=== PATIENT | female | born 1965 | race Caucasian/White ===

== ENCOUNTER → 2019-11-23 12:55 | Outpatient (CLI) | payer OTHER, SELFPAY ==
--- NOTE | ~2019-11-23 | DEXA_ITS ---
Bone Density Report Name: Cristino Menon Age: 54 Sex: Female Ethnicity: White Date of : 1965 Indication: postmenopausal; screening for osteoporosis; height loss; Referring Provider: ALEXANDR CHAPPELL Study: Bone densitometry was performed. Exam Date: November 23, 2019 Accession number: [id number] Bone Density: Region BMD T-score Z-score Classification AP Spine (L1, L2) 1.063 0.8 1.7 Normal Femoral Neck (Left) 0.824 -0.2 0.8 Normal Total Hip (Left) 0.970 0.2 0.9 Normal Femoral Neck (Right) 0.893 0.4 1.4 Normal Total Hip (Right) 1.019 0.6 1.3 Normal Total Hip Mean 0.995 0.4 1.1 Normal World Health Organization criteria for BMD impression classify patients as: Normal (T-score at or above -1.0), Osteopenia (T-score between -1.0 and -2.5), or Osteoporosis (T-score at or below -2.5). 10-year Fracture Risk: FRAX not reported because: All T-scores for Spine Total, Hip Total, Femoral Neck at or above -1.0 Clinical Information Provided by Patient: Patient maximum height was 68 Menopause Age: 51 Drinks caffeinated beverages Onset of menses at age 16 Number of children 2 Impression: The patient has normal bone mass. Discussion: BONE DENSITY IS ABOVE THE MINIMUM DESIRABLE LEVEL AT ALL SKELETAL SITES TESTED. This patient?s bone mineral density is above the minimum desirable level (T-score -1.0 or better) at all sites measured. The patient should follow a healthful lifestyle (good nutrition with adequate calcium and vitamin D, and appropriate weight-bearing exercise). Follow-Up: Consider repeating this study in 5 years or sooner if there is some new clinical indication. Reported by: CAIO on 11/23/2019 1:53:00 PM. Reviewed, dictated and finalized at location AGabriela EDMOND
--- NOTE | ~2019-11-23 | MM_ITS ---
EXAMINATION: MM screening nat[place] BI w allie HISTORY: Screening mammogram TECHNIQUE: Craniocaudal and mediolateral oblique 3-D tomosynthesis images were obtained and synthetic 2-D images were generated. CAD analysis was submitted and interpreted. COMPARISON: 08/29/2012, 07/23/2010 bilateral digital screening mammogram examinations BREAST PARENCHYMAL COMPOSITION: The breasts are heterogeneously dense, which may obscure small masses . FINDINGS: . Stable mild asymmetry. There is no evidence of suspicious mass, calcification, or archite ctural distortion to suggest malignancy in either breast. There has been no suspicious interval velazquez e. IMPRESSION: 1. No mammographic evidence of malignancy. 2. Recommend routine screening mammography in one year. BI-RADS Category 2: Benign finding(s). Reviewed, dictated and finalized at location A.
== END ==
PROVIDERS: PCP Internal Medicine; Visit Provider Obstetrics & Gynecology
DX: Z12.31 Encounter for screening mammogram for malignant neoplasm of breast (principal); Z78.0 Asymptomatic menopausal state
CPT/HCPCS: 77063; 77067; 77080

== ENCOUNTER 2020-04-24 13:48 | Outpatient (CLI) | payer OTHER, SELFPAY ==
--- NOTE | ~2020-04-24 | US_ITS ---
EXAMINATION: US right upper quadrant DATE: 04/24/2020 14:16 INDICATION: Right upper quadrant pain, nausea and vomiting, cholecystectomy TECHNIQUE: Multiple grayscale and Doppler ultrasound images of the abdomen were obtained. COMPARISON: 11/22/2018 FINDINGS: Bowel gas obscures visualization of the pancreas. The visualized portions of the pancreas a re unremarkable. There is mild chronic enlargement of the pancreatic duct. The liver is normal with n ormal echogenicity and echotexture. No surface nodularity. Normal hepatopetal flow in the main portal vein. The gallbladder is surgically absent. The normal common bile duct measures 4 mm. There was no sonographic Collier sign. IMPRESSION: 1. Unremarkable postcholecystectomy ultrasound. Reviewed, dictated and finalized at location B.
[2020-04-24 13:59] LABS: Appearance Urine Clear (Clear); Basophils Absolute Auto 0.05 K/mm3 (0.00-0.10); Basophils Percent Auto 0.6 % (0.0-1.0); Bilirubin Urine Negative (Negative); Color Urine Yellow (Yellow); Eosinophils Absolute Auto 0.12 K/mm3 (0.02-0.50); Eosinophils Percent Auto 1.4 % (1.0-6.0); Glucose Urine UA Negative (Negative); Hematocrit 42.6 % (35.0-49.0); Hemoglobin 14.6 g/dL (12.0-15.0); Immature Granulocyte Absolute 0.02 K/mm3 (0.00-0.00); Immature Granulocyte Percent A 0.2 % (0.0-0.0); Ketones Urine Trace (Negative); Leukocyte Esterase Ur 1+ (Negative); Lymphocytes Percent Auto 43.1 % (18.0-42.0); Mean Corpuscular HGB Conc 34.3 g/dL (32.0-36.0); Mean Corpuscular Hemoglobin 31.2 pg (27.0-31.0); Mean Platelet Volume 9.5 fl (9.2-11.8); Monocytes Absolute Auto 0.64 K/mm3 (0.10-0.90); Monocytes Percent Auto 7.7 % (2.0-11.0); Neutrophils Absolute Auto 3.9 K/mm3 (1.7-7.2); Nitrate Urine Positive (Negative); Platelet Count Result 317 K/mm3 (150-420); Protein Urine Negative (Negative); Red Blood Count 4.68 M/mm3 (4.20-5.40); Red Cell Distribution Width 11.9 % (11.6-14.4); Specific Grav Ur 1.015 (1.010-1.020); White Blood Count 8.4 K/mm3 (4.8-10.8); pH Urine 7.5 (5.0-8.0)
[2020-04-24 14:07] LABS: Add Urine Microscopic? YES; Bacteria Urine 3+ /hpf; Blood Urine Trace-Intact (Negative); RBC Urine 0-2 /hpf (0-2); Squamous Epithelial Cell Urine Rare /hpf (Few)
[2020-04-24 14:16] LABS: Alanine Aminotransferase 20 U/L (14-59); Alkaline Phosphatase 62 U/L (46-116); Amylase 57 U/L (25-115); Anion Gap 5 mmol/L (8-16); Aspartate Amino Transferase 15 U/L (15-37); Bilirubin,Total 0.3 mg/dL (0.00-1.00); Blood Urea Nitrogen 10 mg/dL (7-18); Calcium 9.1 mg/dL (8.5-10.1); Carbon Dioxide 29 mmol/L (21-32); Chloride 105 mmol/L (98-108); Estimated Glomerular Filt Rate > 60; Glucose 94 mg/dL (70-99); Lipase 156 U/L (73-393); Osmolality Calculated 287 mOsm/kg (285-295); Sodium 139 mmol/L (136-145); Total Protein 7.4 g/dL (6.4-8.2)
== END 2020-04-24 13:49 | disposition home or self-care (01) ==
LOC: CHSLAB 13:49
PROVIDERS: PCP Internal Medicine; Visit Provider Internal Medicine
DX: R11.2 Nausea with vomiting, unspecified (principal); R10.11 Right upper quadrant pain; N39.0 Urinary tract infection, site not specified
CPT/HCPCS: 36415; 76705; 80053; 81001; 82150; 83690; 85025; 87077; 87086; 87088; 87186

== ENCOUNTER 2020-05-06 06:50 | Outpatient (CLI) | payer OTHER, SELFPAY ==
[2020-05-06 07:43] LABS: Add Urine Microscopic? YES; Appearance Urine Clear (Clear); Bilirubin Urine Negative (Negative); Blood Urine 1+ (Negative); Color Urine Straw (Yellow); Glucose Urine UA Negative (Negative); Ketones Urine Negative (Negative); Leukocyte Esterase Ur Negative LEU/UL (NEGATIVE); Mucus Urine Rare /lpf; Nitrate Urine Negative (Negative); Protein Urine Negative (Negative); RBC Urine 0-2 /hpf (0-2); Specific Grav Ur 1.011 (1.001-1.035); Squamous Epithelial Cell Urine Few /hpf (Few); Urobilinogen Urine Negative mg/dL (<2.0); WBC Urine 0-3 /hpf (0-3)
== END 2020-05-06 06:51 | disposition home or self-care (01) ==
PROVIDERS: PCP Internal Medicine; Visit Provider Internal Medicine
DX: N39.0 Urinary tract infection, site not specified (principal)
CPT/HCPCS: 81001; 87077; 87086; 87088; 87186

== ENCOUNTER 2020-05-17 06:53 | Outpatient (CLI) | payer OTHER, SELFPAY ==
[2020-05-17 08:14] LABS: Add Urine Microscopic? NO; Appearance Urine Clear (Clear); Bilirubin Urine Negative (Negative); Blood Urine Negative (Negative); Color Urine Straw (Yellow); Glucose Urine UA Negative (Negative); Ketones Urine Negative (Negative); Leukocyte Esterase Ur Negative LEU/UL (Negative); Nitrate Urine Negative (Negative); Protein Urine Negative (Negative); Specific Grav Ur 1.006 (1.001-1.035); Urobilinogen Urine Negative mg/dL (<2.0)
== END 2020-05-17 06:54 | disposition home or self-care (01) ==
PROVIDERS: PCP Internal Medicine; Visit Provider Internal Medicine
DX: N39.0 Urinary tract infection, site not specified (principal)
CPT/HCPCS: 81003

== ENCOUNTER 2020-11-06 07:06 | Outpatient (CLI) | payer OTHER, SELFPAY ==
[2020-11-06 07:38] LABS: Hematocrit 43.6 % (37.0-47.0); Hemoglobin 14.8 g/dL (12.0-15.0); Mean Corpuscular HGB Conc 33.9 g/dl (32-36); Mean Corpuscular Volume 88.4 fl (80-100); Mean Platelet Volume 9.6 fl (7.4-10.4); Platelet Count Result 311 k/mm3 (150-375); Red Blood Count 4.93 M/mm3 (4.2-5.4); Red Cell Distribution Width 12.5 % (11.5-14.5); White Blood Count 6.7 K/mm3 (4.5-10.0)
[2020-11-06 07:47] LABS: Hemoglobin A1C 5.2 % (<5.7)
[2020-11-06 07:51] LABS: Alanine Aminotransferase 19 U/L (4-35); Albumin Level 4.1 g/dL (3.5-5.1); Alkaline Phosphatase 62 U/L (38-126); Anion Gap 7 mmol/L (8-16); Aspartate Amino Transferase 27 U/L (14-36); Bilirubin,Total 0.5 mg/dL (0.2-1.3); Blood Urea Nitrogen 9 mg/dL (7-17); Calcium 9.2 mg/dL (8.4-10.2); Carbon Dioxide 29 mmol/L (22-30); Chloride 106 mmol/L (98-107); Cholesterol 202 mg/dL (0-200); Estimated Glomerular Filt Rate > 60; Glucose 98 mg/dL (65-105); HDL Direct 54 mg/dL; Potassium 4.2 mmol/L (3.4-5.0); Sodium 142 mmol/L (137-145); Triglycerides 77 mg/dL (<150)
[2020-11-06 08:02] LABS: LDL Cholesterol Direct 117 mg/dL
[2020-11-06 08:38] LABS: Free T4 Free Thyroxine 1.04 ng/mL (0.78-2.19); Vitamin D 25 Hydroxy 35.8 ng/mL
[2020-11-06 08:43] LABS: Vitamin B12 > 1000.0 pg/mL (239-931)
== END 2020-11-06 07:07 | disposition home or self-care (01) ==
PROVIDERS: PCP Internal Medicine; Visit Provider Nurse Practitioner
DX: Z00.00 Encounter for general adult medical examination without abnormal findings (principal)
CPT/HCPCS: 36415; 80053; 80061; 82306; 82607; 83036; 84439; 84443; 85027

== ENCOUNTER → 2020-12-23 17:21 | Outpatient (CLI) | payer OTHER, SELFPAY ==
--- NOTE | ~2020-12-23 | MM_ITS ---
EXAMINATION: MM screening nat[place] BI w allie HISTORY: Screening mammogram, family history of breast cancer in her mother. TECHNIQUE: Craniocaudal and mediolateral oblique 3-D tomosynthesis images were obtained and synthetic 2-D images were generated. CAD analysis was submitted and interpreted. COMPARISON: 11/23/2019, 08/29/2012, 07/23/2010 BREAST PARENCHYMAL COMPOSITION: The breasts are heterogeneously dense, which may obscure small masses . FINDINGS: There is no evidence of suspicious mass, calcification, or architectural distortion to sugg est malignancy in either breast. There has been no suspicious interval change. IMPRESSION: 1. No mammographic evidence of malignancy. 2. Recommend routine screening mammography in one year. BI-RADS Category 1: Negative Reviewed, dictated and finalized at location A.
== END ==
PROVIDERS: PCP Internal Medicine; Visit Provider Nurse Practitioner
DX: Z12.31 Encounter for screening mammogram for malignant neoplasm of breast (principal)
CPT/HCPCS: 77063; 77067

== ENCOUNTER 2021-01-20 11:11 | Outpatient (CLI) | payer OTHER, SELFPAY ==
--- NOTE | ~2021-01-20 | XR_ITS ---
EXAMINATION: XR ankle LT min 3V, XR foot LT min 3V EXAM DATE: 01/20/2021 11:50 INDICATION: Initial encounter following injury, with pain of the left foot, ankle. TECHNIQUE: Left foot dorsoplantar, lateral and oblique projections obtained and reviewed. Left ankle frontal, lateral and oblique projections obtained and reviewed. There is no prior study for compari son. FINDINGS: Left metatarsal bones unremarkable. The left ankle mortise appears intact. Congenitally long fibula, large lateral malleolus. 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 Bunion and mild hallux valgus. There are no acute fractures or dislocations identified. There is no subcutaneous ga s. The soft tissue is unremarkable. There are no radiopaque foreign bodies. IMPRESSION: 1. Left foot, ankle exam without acute osseous findings. Reviewed, dictated and finalized at location A. IMPRESSION: 1. Left foot, ankle exam without acute osseous findings.
== END 2021-01-20 11:12 | disposition home or self-care (01) ==
LOC: CHSLAB 11:13
PROVIDERS: PCP Internal Medicine; Visit Provider Internal Medicine
DX: S99.912A Unspecified injury of left ankle, initial encounter (principal)
CPT/HCPCS: 73610; 73630

== ENCOUNTER 2021-02-03 06:58 | Outpatient (CLI) | payer OTHER, SELFPAY ==
--- NOTE | ~2021-02-03 | XR_ITS ---
EXAMINATION: XR ankle LT min 3V DATE: 02/03/2021 07:17 INDICATION: Left ankle pain TECHNIQUE: Anteroposterior, lateral, mortise, and additional oblique view of the ankle were obtained. COMPARISON: 01/20/2021 FINDINGS: Ankle soft tissue swelling has resolved. There is no fracture, dislocation, or subluxation. The joint spaces are normal. There is a tiny plantar calcaneal enthesophyte. IMPRESSION: 1. No acute osseous abnormality. Reviewed, dictated and finalized at location A.
== END 2021-02-03 06:59 | disposition home or self-care (01) ==
LOC: ANHIMG 07:03
PROVIDERS: PCP Internal Medicine; Visit Provider Internal Medicine
DX: S99.911A Unspecified injury of right ankle, initial encounter (principal)
CPT/HCPCS: 73610

== ENCOUNTER 2021-08-11 09:53 | Outpatient (CLI) | payer OTHER, SELFPAY ==
[2021-08-11 11:39] LABS: SARS-CoV-2 RNA PCR Negative (Negative)
== END 2021-08-11 09:54 | disposition home or self-care (01) ==
LOC: CHSLAB 09:55
PROVIDERS: PCP Internal Medicine; Visit Provider Internal Medicine
DX: Z20.822 Contact with and (suspected) exposure to COVID-19 (principal)
CPT/HCPCS: C9803; U0003; U0005

== ENCOUNTER 2021-11-06 06:55 | Outpatient (CLI) | payer OTHER, SELFPAY ==
[2021-11-06 07:53] LABS: Hematocrit 41.1 % (37.0-47.0); Mean Corpuscular HGB Conc 34.1 g/dl (32-36); Mean Corpuscular Hemoglobin 30.5 pg (26-34); Mean Corpuscular Volume 89.5 fl (80-100); Mean Platelet Volume 9.7 fl (7.4-10.4); Platelet Count Result 272 k/mm3 (150-375); Red Blood Count 4.59 M/mm3 (4.2-5.4); Red Cell Distribution Width 12.1 % (11.5-14.5); White Blood Count 6.6 K/mm3 (4.5-10.0)
[2021-11-06 08:03] LABS: Hemoglobin A1C 5.4 % (<5.7)
[2021-11-06 08:08] LABS: Alanine Aminotransferase 16 U/L (4-35); Albumin Level 4.1 g/dL (3.5-5.1); Alkaline Phosphatase 50 U/L (38-126); Anion Gap 5 mmol/L (8-16); Aspartate Amino Transferase 24 U/L (14-36); Bilirubin,Total 0.5 mg/dL (0.2-1.3); Blood Urea Nitrogen 10 mg/dL (7-17); Carbon Dioxide 28 mmol/L (22-30); Chloride 107 mmol/L (98-107); Cholesterol 189 mg/dL (0-200); Estimated Glomerular Filt Rate > 60; Glucose 100 mg/dL (65-110); HDL Direct 51 mg/dL; Potassium 4.1 mmol/L (3.4-5.0); Sodium 140 mmol/L (137-145); Triglycerides 75 mg/dL (<150)
[2021-11-06 08:19] LABS: LDL Cholesterol Direct 107 mg/dL
[2021-11-06 08:35] LABS: Free T4 Free Thyroxine 1.07 ng/mL (0.78-2.19); Vitamin D 25 Hydroxy 37.2 ng/mL
[2021-11-06 08:58] LABS: Vitamin B12 > 1000.0 pg/mL (239-931)
== END 2021-11-06 06:56 | disposition home or self-care (01) ==
LOC: ANHLAB 06:59
PROVIDERS: PCP Internal Medicine; Visit Provider Nurse Practitioner
DX: Z01.419 Encounter for gynecological examination (general) (routine) without abnormal findings (principal); E55.9 Vitamin D deficiency, unspecified
CPT/HCPCS: 36415; 80053; 80061; 82306; 82607; 83036; 84439; 84443; 85027

== ENCOUNTER → 2022-01-13 15:08 | Outpatient (CLI) | payer OTHER, SELFPAY ==
--- NOTE | ~2022-01-13 | MM_ITS ---
EXAMINATION: MM screening nat[place] BI w allie HISTORY: Screening mammogram TECHNIQUE: Craniocaudal and mediolateral oblique 3-D tomosynthesis images were obtained and synthetic 2-D images were generated. CAD analysis was submitted and interpreted. COMPARISON: 12/23/2020, 12/03/2019, 08/29/2012 bilateral screening mammogram examinations BREAST PARENCHYMAL COMPOSITION: There are scattered areas of fibroglandular density. FINDINGS: There is no evidence of suspicious mass, calcification, or architectural distortion to sugg est malignancy in either breast. There has been no suspicious interval change. IMPRESSION: 1. No mammographic evidence of malignancy. 2. Recommend routine screening mammography in one year. BI-RADS Category 1: Negative Reviewed, dictated and finalized at location A.
== END ==
PROVIDERS: PCP Internal Medicine; Visit Provider Nurse Practitioner
DX: Z12.31 Encounter for screening mammogram for malignant neoplasm of breast (principal)
CPT/HCPCS: 77063; 77067

== ENCOUNTER 2022-01-15 07:13 | Outpatient (CLI) | payer OTHER, SELFPAY ==
[2022-01-15 09:49] LABS: Vitamin B12 > 1000.0 pg/mL (239-931)
== END 2022-01-15 07:14 | disposition home or self-care (01) ==
LOC: ANHLAB 07:14
PROVIDERS: PCP Internal Medicine; Visit Provider Obstetrics & Gynecology Gynecology
DX: E53.8 Deficiency of other specified B group vitamins (principal)
CPT/HCPCS: 36415; 82607

== ENCOUNTER 2022-01-27 00:05 | Day surgery (SDC) | payer OTHER, SELFPAY ==
[2022-01-20 09:56] VITALS: BMI 26.3
--- NOTE | 2022-01-27 07:54 | P.PNAN_ITS ---
Anes - Initial Pre Proc Eval Procedure: Operation Date: 01/27/22 13:30 Proposed Procedures p Esophagogastroduodenoscopy - Giovanni Santos MD Date/Time: 01/27/22 07:54 Surgeon: Giovanni Santos MD Pre Op Diagnosis: GERD, chest pain Patient Data Age: 56 Gender: F Height: 1.7 m Weight: 76.3 kg Allergies Allergy/AdvReac Type Severity Reaction Status Date / Time No Known Allergies Allergy Verified 01/27/22 12:08 Home Medications Medication Instructions Recorded Confirmed Type aspirin 81 mg tablet,delayed 81 mg PO DAILY 01/13/22 01/20/22 History release (Adult Aspirin Regimen) cholecalciferol (vitamin D3) 25 25 mcg PO DAILY 01/13/22 01/20/22 History mcg (1,000 unit) capsule lansoprazole 30 mg capsule,delayed 30 mg PO DAILY #30 caps 01/13/22 01/20/22 Rx release (Prevacid) Patient hx anesthesia problems: none Family hx anesthesia problems: none Results Review: All pre-operative results and documents have been reviewed as part of the pre- operative evaluation. [facility] Past Medical History Medical History (Updated 01/27/22 @ 07:54 by Doug Aquino DO) GERD (gastroesophageal reflux disease) Surgical History Surgical History (Updated 01/27/22 @ 07:54 by Doug Aquino DO) History of spinal fusion History of tubal ligation Social History Social History Smoking status: Never smoker Alcohol intake: current Alcohol use details: socially Substance use: never Substance use type: does not use Living arrangements: with family Gender identity (if verbalized by the patient): Female Spiritual care concerns: No Anes - Eval Final PreProcedure Day of Procedure 01/27/22 07:54 Patient weight: overweight Heart: regular rate and rhythm Lungs: clear to auscultation Airway: Mallampati scale class II Neurological: alert and oriented Last oral intake: >/= 8 hours ASA classification: II Emergent: no Anesthetic plan: proceed Anesthesia type and monitoring: general GIVS and standard monitoring Results Review: All pre-operative results and documents have been reviewed as part of the pre- operative evaluation. Informed Consent: The patient's anesthetic plan and its attendant risks and benefits were discussed with the patient/family/POA. Questions were solicited and answers provided to the satisfaction of the patient/family/POA.
[2022-01-27 12:08] VITALS: BP 118/68; PULSE 60; TEMP 36.2; O2SAT 99
[2022-01-27] MEDS: LACTATED RINGERS 1,000 ML 150 ML IV CONT (12:11)
--- NOTE | 2022-01-27 12:33 | WPDHPUPDATE1 ---
History and Physical Update Update Date/Time: 01/27/22 12:33 History and Physical has been reviewed, including an updated exam of the patient. There are NO changes in the patient's condition. Risks, benefits, and alternatives have been discussed and questions answered. Patient agrees to proceed with procedure.
[2022-01-27 13:44] VITALS: BP 120/65; PULSE 67; RESP 15; O2SAT 95
[2022-01-27 13:54] VITALS: BP 121/70; PULSE 65; RESP 19; O2SAT 98
[2022-01-27 14:04] VITALS: BP 126/79; PULSE 64; RESP 18; O2SAT 99
== END 2022-01-27 14:16 | disposition home or self-care (01) ==
PROVIDERS: PCP Internal Medicine; Visit Provider Internal Medicine Gastroenterology
PROC: 0DJ08ZZ Inspection of Upper Intestinal Tract, Via Natural or Artificial Opening Endoscopic (ICD-10-PCS; CPT 43235; principal; 2022-01-27 13:30)
DX: R07.89 Other chest pain (principal); K21.9 Gastro-esophageal reflux disease without esophagitis; Z98.1 Arthrodesis status; Z79.82 Long term (current) use of aspirin
CPT/HCPCS: 43239; 87081; J2001; J2704; J7120

== ENCOUNTER 2022-12-03 06:56 | Outpatient (CLI) | payer OTHER, SELFPAY ==
[2022-12-03 07:21] LABS: Hematocrit 40.7 % (37.0-47.0); Hemoglobin 13.7 g/dL (12.0-15.0); Mean Corpuscular HGB Conc 33.7 g/dl (32-36); Mean Corpuscular Hemoglobin 28.8 pg (26-34); Mean Corpuscular Volume 85.5 fl (80-100); Mean Platelet Volume 10.1 fl (7.4-10.4); Platelet Count Result 292 k/mm3 (150-375); Red Blood Count 4.76 M/mm3 (4.2-5.4); Red Cell Distribution Width 11.5 % (11.5-14.5); White Blood Count 5.4 K/mm3 (4.5-10.0)
[2022-12-03 07:32] LABS: Alanine Aminotransferase 178 U/L (6-35); Albumin Level 3.9 g/dL (3.5-5.1); Alkaline Phosphatase 71 U/L (38-126); Anion Gap 4 mmol/L (8-16); Aspartate Amino Transferase 84 U/L (14-36); Bilirubin,Total 0.9 mg/dL (0.2-1.3); Blood Urea Nitrogen 10 mg/dL (7-17); Calcium 9.5 mg/dL (8.4-10.2); Carbon Dioxide 28 mmol/L (22-30); Chloride 106 mmol/L (98-107); Cholesterol 143 mg/dL (0-200); Estimated Glomerular Filt Rate > 60; Glucose 108 mg/dL (65-110); HDL Direct 40 mg/dL; Potassium 3.9 mmol/L (3.4-5.0); Sodium 138 mmol/L (137-145); Triglycerides 95 mg/dL (<150)
[2022-12-03 07:43] LABS: LDL Cholesterol Direct 73 mg/dL
[2022-12-03 07:58] LABS: Hemoglobin A1C 5.5 % (<5.7)
[2022-12-03 08:01] LABS: Thyroid Stimulating Hormone < 0.015 uIU/mL (0.465-4.680)
[2022-12-03 08:18] LABS: Free T4 Free Thyroxine 4.57 ng/mL (0.78-2.19); Vitamin D 25 Hydroxy 46.9 ng/mL
== END 2022-12-03 06:57 | disposition home or self-care (01) ==
LOC: ANHLAB 06:57
PROVIDERS: PCP Internal Medicine; Visit Provider Nurse Practitioner
DX: Z01.419 Encounter for gynecological examination (general) (routine) without abnormal findings (principal)
CPT/HCPCS: 36415; 80053; 80061; 82306; 82607; 83036; 84439; 84443; 85027

== ENCOUNTER 2022-12-10 07:38 | Outpatient (CLI) | payer OTHER, SELFPAY ==
--- NOTE | ~2022-12-10 | US_ITS ---
Limited Abdominal Sonogram: Real-time sonographic imaging of the right upper quadrant was performed. Clinical History: Abnormal LFTs Findings: The liver appears normal with no evidence of mass lesion or bile duct dilatation. Main por francisca vein demonstrates normal direction of flow. The gallbladder is absent, compatible prior cholecyst ectomy. The common bile duct measures 4 mm. The visualized pancreas, aorta, and IVC are unremarkable . Impression: Status post cholecystectomy, otherwise unremarkable exam. Reviewed, dictated and finalized at location . Impression: Status post cholecystectomy, otherwise unremarkable exam.
--- NOTE | ~2022-12-10 | US_ITS ---
EXAMINATION: US thyroid DATE: 12/10/2022 08:40 INDICATION: Hyperthyroidism TECHNIQUE: Multiple ultrasound images of the thyroid were obtained. COMPARISON: None. FINDINGS: The right thyroid lobe measures 1.5 x 1.8 x 1.7 cm. The left thyroid lobe measures 4.2 x 1.8 x 1.7 c m. 1.5 cm solid isoechoic nodule with smooth margins and without internal echogenic foci at the infe rior right thyroid lobe likely (TI-RADS 3, mildly suspicious , FNA if >=2.5 cm, annual followup is >= 1.5 cm). Similar appearing 1.6 cm TI RADS 3 nodule at the mid left thyroid. There is mildly heterogen eous echogenicity and coarsened echotexture throughout the remainder of the thyroid. IMPRESSION: 1. A couple TI RADS 3 nodules, the larger on the left measuring 1.6 cm for which annual follow-up ult rasound would be recommended. Reviewed, dictated and finalized at location A. IMPRESSION: 1. A couple TI RADS 3 nodules, the larger on the left measuring 1.6 cm for whic h annual follow-up ultrasound would be recommended.
== END 2022-12-10 07:39 | disposition home or self-care (01) ==
LOC: CHSIMG 07:41
PROVIDERS: PCP Internal Medicine; Visit Provider Internal Medicine
DX: E03.9 Hypothyroidism, unspecified (principal); R74.01 Elevation of levels of liver transaminase levels; E04.2 Nontoxic multinodular goiter; Z90.49 Acquired absence of other specified parts of digestive tract
CPT/HCPCS: 76536; 76705

== ENCOUNTER 2022-12-24 06:55 | Outpatient (CLI) | payer OTHER, SELFPAY ==
[2022-12-24 07:40] LABS: Alanine Aminotransferase 168 U/L (6-35); Alkaline Phosphatase 61 U/L (38-126); Anion Gap 6 mmol/L (8-16); Aspartate Amino Transferase 70 U/L (14-36); Bilirubin,Total 0.7 mg/dL (0.2-1.3); Blood Urea Nitrogen 14 mg/dL (7-17); Calcium 9.7 mg/dL (8.4-10.2); Carbon Dioxide 27 mmol/L (22-30); Chloride 105 mmol/L (98-107); Estimated Glomerular Filt Rate > 60; Glucose 102 mg/dL (65-110); Potassium 4.5 mmol/L (3.4-5.0); Sodium 138 mmol/L (137-145)
== END 2022-12-24 06:56 | disposition home or self-care (01) ==
LOC: ANHLAB 06:58
PROVIDERS: PCP Internal Medicine; Visit Provider Internal Medicine
DX: R94.5 Abnormal results of liver function studies (principal)
CPT/HCPCS: 36415; 80053

== ENCOUNTER → 2023-02-04 12:14 | Outpatient (CLI) | payer OTHER, SELFPAY ==
--- NOTE | ~2023-02-04 | MM_ITS ---
EXAMINATION: MM screening natalia BI w allie HISTORY: Screening mammogram TECHNIQUE: Craniocaudal and mediolateral oblique 3-D tomosynthesis images were obtained and synthetic 2-D images were generated. CAD analysis was submitted and interpreted. COMPARISON: 01/13/2022, 12/23/2020, 12/03/2019 bilateral screening mammogram examinations BREAST PARENCHYMAL COMPOSITION: The breasts are heterogeneously dense, which may obscure small masses . FINDINGS: There is no evidence of suspicious mass, calcification, or architectural distortion to sugg est malignancy in either breast. There has been no suspicious interval change. IMPRESSION: 1. No mammographic evidence of malignancy. 2. Recommend routine screening mammography in one year. BI-RADS Category 1: Negative Reviewed, dictated and finalized at location A.
== END ==
PROVIDERS: PCP Nurse Practitioner; Visit Provider Nurse Practitioner
DX: Z12.31 Encounter for screening mammogram for malignant neoplasm of breast (principal)
CPT/HCPCS: 77063; 77067

== ENCOUNTER 2023-02-06 08:07 | Outpatient (CLI) | payer OTHER, SELFPAY ==
[2023-02-06 08:35] LABS: Alanine Aminotransferase 50 U/L (6-35); Albumin Level 4.1 g/dL (3.5-5.1); Alkaline Phosphatase 75 U/L (38-126); Aspartate Amino Transferase 36 U/L (14-36); Bilirubin,Total 0.5 mg/dL (0.2-1.3)
[2023-02-06 09:08] LABS: Thyroid Stimulating Hormone < 0.015 uIU/mL (0.465-4.680)
[2023-02-06 09:42] LABS: Free T4 Free Thyroxine 1.34 ng/mL (0.78-2.19)
[2023-02-12 06:08] LABS: Triiodothyronine T3 Free 2.8 pg/mL (2.3-4.2)
== END 2023-02-06 08:08 | disposition home or self-care (01) ==
LOC: ANHLAB 08:09
PROVIDERS: PCP Nurse Practitioner; Visit Provider Internal Medicine Endocrinology, Diabetes & Metabolism
DX: E05.00 Thyrotoxicosis with diffuse goiter without thyrotoxic crisis or storm (principal); R74.8 Abnormal levels of other serum enzymes
CPT/HCPCS: 36415; 80076; 84439; 84443; 84481

== ENCOUNTER 2023-06-07 06:57 | Outpatient (RCR) | payer OTHER, SELFPAY ==
[2023-04-05 08:12] LABS: Alanine Aminotransferase 25 U/L (6-35); Albumin Level 4.1 g/dL (3.5-5.1); Alkaline Phosphatase 84 U/L (38-126); Aspartate Amino Transferase 31 U/L (14-36); Bilirubin,Total 0.4 mg/dL (0.2-1.3)
[2023-04-05 08:49] LABS: Free T4 Free Thyroxine 0.69 ng/mL (0.78-2.19)
[2023-04-08 05:27] LABS: Triiodothyronine T3 Free 2.6 pg/mL (2.3-4.2)
[2023-06-07 07:56] LABS: Alanine Aminotransferase 20 U/L (6-35); Albumin Level 4.3 g/dL (3.5-5.1); Alkaline Phosphatase 79 U/L (38-126); Aspartate Amino Transferase 31 U/L (14-36); Bilirubin,Total 0.7 mg/dL (0.2-1.3)
[2023-06-07 08:20] LABS: Free T4 Free Thyroxine 0.66 ng/mL (0.78-2.19)
[2023-06-10 06:31] LABS: Triiodothyronine T3 Free 3.9 pg/mL (2.3-4.2)
== END 2023-07-04 23:59 | disposition home or self-care (01) ==
LOC: ANHLAB 06:57
PROVIDERS: PCP Nurse Practitioner; Visit Provider Internal Medicine Endocrinology, Diabetes & Metabolism
DX: E05.00 Thyrotoxicosis with diffuse goiter without thyrotoxic crisis or storm (principal)
CPT/HCPCS: 36415; 80076; 84439; 84443; 84481

== ENCOUNTER 2023-10-27 06:55 | Outpatient (RCR) | payer OTHER, SELFPAY ==
[2023-08-23 09:38] LABS: Alanine Aminotransferase 24 U/L (6-35); Albumin Level 4.5 g/dL (3.5-5.1); Alkaline Phosphatase 90 U/L (38-126); Aspartate Amino Transferase 29 U/L (14-36); Bilirubin,Total 0.5 mg/dL (0.2-1.3)
[2023-08-23 10:16] LABS: Free T4 Free Thyroxine 1.15 ng/mL (0.78-2.19)
[2023-08-26 03:27] LABS: Triiodothyronine T3 Free 2.8 pg/mL (2.3-4.2)
[2023-10-27 08:07] LABS: Alanine Aminotransferase 20 U/L (6-35); Albumin Level 4.6 g/dL (3.5-5.1); Alkaline Phosphatase 90 U/L (38-126); Aspartate Amino Transferase 31 U/L (14-36)
[2023-10-27 08:35] LABS: Free T4 Free Thyroxine 0.96 ng/mL (0.78-2.19)
== END 2023-11-21 23:59 | disposition home or self-care (01) ==
LOC: ANHLAB 06:55
PROVIDERS: Pediatrics Pediatric Cardiology; PCP Nurse Practitioner; Visit Provider Internal Medicine Endocrinology, Diabetes & Metabolism
DX: E05.00 Thyrotoxicosis with diffuse goiter without thyrotoxic crisis or storm (principal)
CPT/HCPCS: 36415; 80076; 84439; 84443; 84481

== ENCOUNTER 2023-12-03 13:37 | Outpatient (CLI) | payer OTHER, SELFPAY ==
[2023-12-03 13:50] LABS: Basophils Absolute Auto 0.05 K/mm3 (0.00-0.10); Basophils Percent Auto 0.6 % (0.0-1.0); Eosinophils Absolute Auto 0.13 K/mm3 (0.02-0.50); Eosinophils Percent Auto 1.6 % (1.0-6.0); Hematocrit 43.7 % (35.0-49.0); Immature Granulocyte Absolute 0.02 K/mm3 (0.00-0.00); Immature Granulocyte Percent A 0.2 % (0.0-0.0); Lymphocytes Absolute Auto 3.87 K/mm3 (1.10-4.50); Lymphocytes Percent Auto 46.2 % (18.0-42.0); Mean Corpuscular HGB Conc 34.3 g/dL (32-36); Mean Corpuscular Hemoglobin 30.7 pg (27.0-31.0); Mean Corpuscular Volume 89.5 fL (78.0-102.0); Mean Platelet Volume 9.3 fl (9.2-11.8); Monocytes Absolute Auto 0.54 K/mm3 (0.10-0.90); Monocytes Percent Auto 6.4 % (2.0-11.0); Neutrophils Absolute Auto 3.77 K/mm3 (1.70-7.20); Platelet Count Result 302 K/mm3 (150-420); Red Blood Count 4.88 M/mm3 (4.20-5.40); Red Cell Distribution Width 12.1 % (11.6-14.4); White Blood Count 8.4 K/mm3 (4.8-10.8)
[2023-12-03 14:15] LABS: CRP < 0.5 mg/dL (0.0-0.9)
[2023-12-03 15:13] LABS: Erythrocyte Sedimentation Rate 12 mm/hr (0-20)
== END 2023-12-03 13:38 | disposition home or self-care (01) ==
LOC: CHSLAB 13:38
PROVIDERS: PCP Internal Medicine; Visit Provider Internal Medicine
DX: R51.9 Headache, unspecified (principal)
CPT/HCPCS: 36415; 85025; 85652; 86140

== ENCOUNTER 2023-12-08 12:23 | Outpatient (CLI) | payer OTHER, SELFPAY ==
--- NOTE | ~2023-12-08 | MR_ITS ---
MRI of the brain Clinical History: Headache Technique: Axial and sagittal T1-weighted images were acquired. These were followed by axial T2-weigh josse, diffusion weighted, gradient, and FLAIR images. COMPARISON: 02/13/2017 Findings: No abnormal signal seen in the brain parenchyma. No acute infarct, internal hemorrhage, or mass lesion. Ventricles and subarachnoid spaces are unremarkable. Orbits are unremarkable. Paranasal sinuses and m astoid air cells are clear. Major intracranial flow voids are intact. Sagittal midline structures are intact. IMPRESSION: Unremarkable exam. Reviewed, dictated and finalized at location M. IMPRESSION: Unremarkable exam.
== END 2023-12-08 12:24 ==
LOC: GOSHIMG 12:24
PROVIDERS: PCP Internal Medicine; Visit Provider Internal Medicine
DX: R51.9 Headache, unspecified (principal)
CPT/HCPCS: 70551

== ENCOUNTER 2023-12-22 07:10 | Outpatient (CLI) | payer OTHER, SELFPAY ==
[2023-12-22 08:21] LABS: Appearance Urine Clear (Clear); Bacteria Urine 4+ /hpf; Bilirubin Urine Negative (Negative); Blood Urine Negative (Negative); Color Urine Yellow (Yellow); Glucose Urine UA Negative (Negative); Ketones Urine Negative (Negative); Leukocyte Esterase Ur 2+ LEU/UL (Negative); Nitrate Urine Positive (Negative); Non Pathogenic Casts 0-2; Protein Urine Negative (Negative); RBC Urine 0-2 /hpf (0-2); Specific Grav Ur 1.009 (1.001-1.035); Squamous Epithelial Cell Urine None Seen /hpf (Few); Urobilinogen Urine 0.2 mg/dL (<2.0); WBC Urine 21-50 /hpf (0-3)
[2023-12-22 08:25] LABS: Alanine Aminotransferase 18 U/L (6-35); Albumin Level 4.6 g/dL (3.5-5.1); Alkaline Phosphatase 74 U/L (38-126); Anion Gap 7 mmol/L (4-12); Aspartate Amino Transferase 25 U/L (14-36); Bilirubin Indirect 0.4 mg/dL (0-1.1); Bilirubin,Total 0.9 mg/dL (0.2-1.3); Blood Urea Nitrogen 11 mg/dL (7-17); Calcium 9.7 mg/dL (8.4-10.2); Carbon Dioxide 26 mmol/L (22-30); Chloride 108 mmol/L (98-107); Cholesterol 216 mg/dL (0-200); Estimated Glomerular Filt Rate > 60; Glucose 91 mg/dL (65-110); HDL Direct 67 mg/dL; Potassium 4.1 mmol/L (3.4-5.0); Sodium 141 mmol/L (137-145); Triglycerides 103 mg/dL (<150)
[2023-12-22 08:28] LABS: Add Urine Microscopic? YES
[2023-12-22 08:37] LABS: LDL Cholesterol Direct 121 mg/dL
[2023-12-22 08:44] LABS: Hematocrit 45.2 % (37.0-47.0); Hemoglobin 14.9 g/dL (12.0-15.0); Mean Corpuscular Hemoglobin 30.3 pg (26-34); Mean Corpuscular Volume 91.9 fl (80-100); Platelet Count Result 294 k/mm3 (150-375); Red Blood Count 4.92 M/mm3 (4.2-5.4); Red Cell Distribution Width 12.3 % (11.5-14.5); White Blood Count 6.1 K/mm3 (4.5-10.0)
[2023-12-22 08:54] LABS: Free T4 Free Thyroxine 1.16 ng/mL (0.78-2.19)
== END 2023-12-22 07:11 | disposition home or self-care (01) ==
PROVIDERS: PCP Internal Medicine; Referring Provider Internal Medicine; Visit Provider Internal Medicine Endocrinology, Diabetes & Metabolism
DX: Z00.00 Encounter for general adult medical examination without abnormal findings (principal); E05.00 Thyrotoxicosis with diffuse goiter without thyrotoxic crisis or storm
CPT/HCPCS: 36415; 80053; 80061; 81001; 82248; 84439; 84443; 84481; 85027; 87077; 87086; 87088; 87186

== ENCOUNTER 2024-03-22 14:22 | Outpatient (CLI) | payer OTHER, SELFPAY ==
--- NOTE | ~2024-03-22 | MM_ITS ---
EXAMINATION: MM screening nat[place] BI w allie HISTORY: Screening TECHNIQUE: Craniocaudal and mediolateral oblique 3-D tomosynthesis images were obtained and synthetic 2-D images were generated. CAD analysis was submitted and interpreted. COMPARISON: Comparison to multiple prior studies sequentially, with oldest reviewed study dated 04/2020. BREAST PARENCHYMAL COMPOSITION: Not dense: There are scattered areas of fibroglandular density. FINDINGS: There is a developing elliptical mass in the left breast in the lower outer quadrant of the left breast posterior third. The right breast is stable without evidence for malignancy. IMPRESSION: 1. Developing left breast mass, lower outer quadrant posteriorly. 2. Additional mammographic views and possible breast ultrasound are recommended. BI-RADS Category 0: Incomplete: Needs additional imaging evaluation. Reviewed, dictated and finalized at location B. IMPRESSION: 1. Developing left breast mass, lower outer quadrant posteriorly. 2. Additional mammographic views and possible breast ultrasound are recommended . BI-RADS Category 0: Incomplete: Needs additional imaging evaluation.
== END 2024-03-22 14:23 ==
PROVIDERS: PCP Nurse Practitioner; Visit Provider Nurse Practitioner
DX: Z12.31 Encounter for screening mammogram for malignant neoplasm of breast (principal); R92.8 Other abnormal and inconclusive findings on diagnostic imaging of breast
CPT/HCPCS: 77063; 77067

== ENCOUNTER 2024-03-23 06:46 | Outpatient (CLI) | payer OTHER, SELFPAY ==
[2024-03-23 08:32] LABS: Free T4 Free Thyroxine 1.06 ng/mL (0.78-2.19)
[2024-03-24 09:18] LABS: Triiodothyronine T3 Free 3.1 pg/mL (2.3-4.2)
[2024-03-30 03:24] LABS: Thyroid Stimulating Immunoglob <89 % baseline (<140)
[2024-03-31 17:34] LABS: Thyrotropin Receptor Antibody 1.22 IU/L (< OR = 2.00)
== END 2024-03-23 06:47 | disposition home or self-care (01) ==
PROVIDERS: PCP Internal Medicine; Visit Provider Internal Medicine Endocrinology, Diabetes & Metabolism
DX: E05.00 Thyrotoxicosis with diffuse goiter without thyrotoxic crisis or storm (principal)
CPT/HCPCS: 36415; 83519; 84439; 84443; 84445; 84481

== ENCOUNTER 2024-04-18 08:15 | Outpatient (CLI) | payer OTHER, SELFPAY ==
--- NOTE | ~2024-04-18 | MMUS_ITS ---
EXAMINATION: MM diagnostic natalia LT w allie, US breast LT limited HISTORY: Follow-up left breast asymmetry TECHNIQUE: Additional 3-D tomosynthesis images of the left breast were performed and synthetic 2-D im ages were generated. CAD analysis was submitted and interpreted. High resolution Limited left breast ultrasound was performed. COMPARISON: Comparison to multiple prior studies sequentially, with oldest reviewed study dated 04/2020. BREAST PARENCHYMAL COMPOSITION: Dense: The breasts are heterogeneously dense, which may obscure small masses FINDINGS: MAMMOGRAPHIC FINDINGS: There are no suspicious masses, calcification or architectural distortion. There is a persistent foca l asymmetry in the lateral aspect of the left breast, best seen on CC view posteriorly. ULTRASOUND: Limited left breast ultrasound: At 4:00, there is a 6 mm cyst. At 1:00, 3 cm from the nipple there is an oval hypoechoic mass with parallel orientation, heterogeneous internal echotexture measuring 5 x 2 x 2 mm without posterior features or internal vascularity, likely benign. IMPRESSION: 1. Probable benign left breast masses. 2. Recommend 6 month follow-up diagnostic left mammogram and Limited left breast ultrasound BI-RADS category 3, probably benign findings. Reviewed, dictated and finalized at location B. IMPRESSION: 1. Probable benign left breast masses. 2. Recommend 6 month follow-up diagnostic left mammogram and Limited left breas t ultrasound BI-RADS category 3, probably benign findings.
== END 2024-04-18 08:16 | disposition home or self-care (01) ==
LOC: MICIMG 08:16
PROVIDERS: PCP Internal Medicine; Visit Provider Obstetrics & Gynecology Gynecology
DX: R92.8 Other abnormal and inconclusive findings on diagnostic imaging of breast (principal)
CPT/HCPCS: 76642; 77061; 77065; G0279

== ENCOUNTER 2024-06-03 13:49 | Emergency (ER) | payer OTHER, SELFPAY ==
--- NOTE | ~2024-06-03 | XR_ITS ---
XR chest 2V Ordering provider: Michele Tavera MD History: 58 years Female with . cp, weakness, near syncope . Comparison: November 14, 2018 FINDINGS: MEDIASTINUM: The cardiac silhouette is not enlarged. LUNGS: No infiltrates, effusions or pneumothorax. OTHER: No free air under the diaphragm. IMPRESSION: No acute cardiopulmonary pathology. Reviewed, dictated and finalized at location A.
[2024-06-03 13:51] VITALS: BP 144/72; PULSE 68; RESP 17; TEMP 36.7; O2SAT 100
--- NOTE | 2024-06-03 13:55 | ECG_ITS ---
Test Date: 2024-06-03 13:58:53 Measurements Intervals [place] Rate: 66 P: 50 GA: 152 QRS: 63 QRSD: 89 T: 50 QT: 383 QTc: 404 Interpretive Statements SINUS RHYTHM NORMAL ELECTROCARDIOGRAM No previous ECG available for comparison Electronically Signed On 06-04-2024 08:54:28 CDT by Eleazar Whitney M.D.
[2024-06-03 14:35] VITALS: PULSE 64
[2024-06-03 14:44] LABS: Basophils Percent Auto 0.5 % (0.2-1.2); Eosinophils Absolute Auto 0.1 K/mm3 (0-0.3); Eosinophils Percent Auto 0.8 % (0-4.4); Hematocrit 44.7 % (37.0-47.0); Hemoglobin 15.4 g/dL (12.0-15.0); Immature Granulocyte Absolute 0.02 K/mm3 (0.00-0.031); Immature Granulocyte Percent A 0.3 % (0-0.5); Lymphocytes Percent Auto 30.4 % (18.3-44.2); Mean Corpuscular HGB Conc 34.5 g/dl (32-36); Mean Corpuscular Hemoglobin 30.7 pg (26-34); Mean Corpuscular Volume 89.2 fl (80-100); Mean Platelet Volume 9.8 fl (7.4-10.4); Monocytes Absolute Auto 0.6 K/mm3 (0.1-0.6); Monocytes Percent Auto 7.4 % (2.6-8.5); Neutrophils Absolute Auto 4.6 K/mm3 (1.3-6.7); Neutrophils Percent Auto 60.6 % (45.5-73.1); Platelet Count Result 262 k/mm3 (150-375); Red Blood Count 5.01 M/mm3 (4.2-5.4); Red Cell Distribution Width 12.2 % (11.5-14.5); White Blood Count 7.6 K/mm3 (4.5-10.0)
[2024-06-03 14:53] LABS: Alanine Aminotransferase 17 U/L (6-35); Albumin Level 4.5 g/dL (3.5-5.1); Alkaline Phosphatase 80 U/L (38-126); Anion Gap 12 mmol/L (4-12); Aspartate Amino Transferase 31 U/L (14-36); Bilirubin,Total 0.9 mg/dL (0.2-1.3); Blood Urea Nitrogen 9 mg/dL (7-17); Calcium 9.5 mg/dL (8.4-10.2); Carbon Dioxide 18 mmol/L (22-30); Chloride 105 mmol/L (98-107); Estimated CRCL calculation 65 ml/min; Estimated Glomerular Filt Rate > 60; Glucose 99 mg/dL (65-110); Lipase 113 U/L (23-300); Potassium 3.9 mmol/L (3.4-5.0); Sodium 135 mmol/L (137-145)
--- NOTE | 2024-06-03 14:56 | ED.GENADULT ---
HPI - General Adult General Chief complaint: Chest Pain Stated complaint: near syncope Time Seen by Provider: 06/03/24 14:02 History of Present Illness HPI narrative: 58-year-old female presenting to the emergency department for evaluation after having a 5-10 minute episode of chest pain that radiated into her back. Patient states she was at rest and she started to feel diaphoretic. patient states the episode did happen while she was at rest. Patient denies any prior cardiac history. Patient states she has no prior history of PE or DVT. Patient reports her last stress test was approximately 10 years ago. Related Data Home Medications Medication Instructions Recorded Confirmed aspirin 81 mg tablet,delayed 81 mg PO DAILY 01/13/22 01/20/22 release (Adult Aspirin Regimen) cholecalciferol (vitamin D3) 25 25 mcg PO DAILY 01/13/22 01/20/22 mcg (1,000 unit) capsule Allergies Allergy/AdvReac Type Severity Reaction Status Date / Time No Known Allergies Allergy Verified 06/03/24 15:03 Review of Systems Review of Systems: All systems reviewed & are unremarkable except as noted in HPI and below PMFSH Past Medical History Medical History (Updated 06/04/24 @ 00:00 by Rebecca Luther) GERD (gastroesophageal reflux disease) Surgical History Surgical History (Updated 01/27/22 @ 07:54 by Doug Aquino DO) History of spinal fusion History of tubal ligation Social History Social History Smoking status: Never smoker Alcohol intake: current Alcohol use details: socially Substance use: never Substance use type: does not use Living arrangements: with family Occupation/Education: occupation Gender identity (if verbalized by the patient): Female Spiritual care concerns: No Exam Narrative: APPEARANCE: Well appearing, no pain, no distress, well-nourished. HEAD: normocephalic, atraumatic. EYES: PERRLA/EOMI, conjunctivae clear. NOSE: Normal no drainage EARS:TMS clear with good light reflex. THROAT: Pharynx clear, no exudate. NECK: Supple. No adenopathy, no masses. RESPIRATORY: Airway patent, respirations nonlabored. Clear to auscultation bilaterally, no rales, rhonchi, wheezing. CARDIOVASCULAR: Regular rate and rhythm without murmurs rubs or gallops. ABDOMINAL: Soft, nontender, nondistended, normal bowel sounds MUSCULOSKELETAL: Moves all extremities. Strength/ROM intact, No edema, No calf tenderness. NEURO: Alert. Cranial nerves II through XII intact. Good gait. Good coordination SKIN: Warm, dry. Normal Color Course Vital Signs Vital signs: Vital Signs Temperature 98.0 F 06/03/24 13:51 Pulse Rate 68 06/03/24 13:51 Respiratory Rate 17 06/03/24 13:51 Blood Pressure 144/72 H 06/03/24 13:51 Pulse Oximetry 100 06/03/24 13:51 Oxygen Delivery Room Air 06/03/24 13:51 Temperature 98.0 F 06/03/24 13:51 Pulse Rate 74 06/03/24 17:30 Respiratory Rate 19 06/03/24 17:30 Blood Pressure 125/87 06/03/24 17:30 Pulse Oximetry 99 06/03/24 17:30 Oxygen Delivery Room Air 06/03/24 14:35 Medical Decision Making MDM Narrative Medical decision making narrative: 58-year-old female presented to the emergency department for evaluation for an episode of chest pain. Patient is afebrile with no leukocytosis and a stable hemoglobin of 15.4. Patient had negative serial troponins. No acute abnormalities on the CMP with a negative lipase. Chest x-ray shows no acute cardiopulmonary abnormality. EKG shows normal sinus rhythm. Recent was treated with Protonix and famotidine and does feel improved. Low concern for ACS. Patient was updated on results of her workup was encouraged of close follow-up with her primary care physician for additional outpatient cardiac testing. Differential Diagnosis Differential Diagnosis: ACS, PE, DVT, gastritis, gastroenteritis, pneumothorax pneumonia Vital Signs Vital Sig
[2024-06-03 15:05] LABS: Troponin I < 0.012 ng/mL (0.000-0.034)
[2024-06-03] MEDS: PANTOPRAZOLE SODIUM IV 40 MG VIAL IV PUSH (15:05)
[2024-06-03] MEDS: FAMOTIDINE 20 MG/2 ML VIAL IV PUSH (15:08)
[2024-06-03 15:30] VITALS: BP 141/81; PULSE 65; RESP 14; O2SAT 100
--- NOTE | 2024-06-03 16:40 | ECG_ITS ---
Test Date: 2024-06-03 16:40:50 Measurements Intervals [place] Rate: 65 P: 56 CO: 156 QRS: 49 QRSD: 87 T: 48 QT: 403 QTc: 419 Interpretive Statements SINUS RHYTHM WITH SINUS ARRHYTHMIA NORMAL ELECTROCARDIOGRAM Compared to ECG 06/03/2024 13:58:53 NO CHANGE Electronically Signed On 06-04-2024 08:55:53 CDT by Eleazar Whitney M.D.
[2024-06-03 17:00] VITALS: BP 141/83; PULSE 67; RESP 14; O2SAT 100
[2024-06-03 17:11] LABS: Troponin I < 0.012 ng/mL (0.000-0.034)
[2024-06-03 17:30] VITALS: BP 125/87; PULSE 74; RESP 19; O2SAT 99
== END 2024-06-03 17:30 | disposition home or self-care (01) ==
PROVIDERS: Emergency Provider Emergency Medicine; PCP Internal Medicine
DX: R07.89 Other chest pain (principal); K21.9 Gastro-esophageal reflux disease without esophagitis
CPT/HCPCS: 36415; 71046; 80053; 83690; 84484; 85025; 85610; 85730; 93005; 96374; 96375; 99284; J2470

== ENCOUNTER 2024-06-22 10:45 | Outpatient (CLI) | payer OTHER, SELFPAY ==
--- NOTE | ~2024-06-22 | CT_ITS ---
EXAMINATION: CT abdomen pelvis w con DATE: 06/22/2024 12:02 INDICATION: Epigastric and right upper quadrant abdominal pain. Nausea. TECHNIQUE: Computed tomography (CT) of the abdomen and pelvis was performed with 100 mL Omnipaque 350 intravenous contrast. Automated exposure control and iterative reconstruction technique were employe d. The dose-length product was 323.10 mGy-cm. COMPARISON: CT abdomen and pelvis 06/29/16 FINDINGS: The visualized portions of the lung bases demonstrate mild atelectasis. No pleural effusion . The heart size is normal. No pericardial effusion. The liver and spleen are normal. There are velazquez es of cholecystectomy. The pancreas, adrenal glands, and kidneys are normal. There are no dilated loo ps of bowel. The appendix is normal. There are no pathologically enlarged lymph nodes. There is no fr ee intraperitoneal fluid. There is mild lumbar spondylosis. IMPRESSION: 1. No etiology for the patient's symptoms. Reviewed, dictated and finalized at location A. OR [facility]ATRIC [facility]ICINE
[2024-06-22 11:03] LABS: Basophils Absolute Auto 0.06 K/mm3 (0.00-0.10); Basophils Percent Auto 0.6 % (0.0-1.0); Eosinophils Absolute Auto 0.03 K/mm3 (0.02-0.50); Eosinophils Percent Auto 0.3 % (1.0-6.0); Hematocrit 43.7 % (35.0-49.0); Hemoglobin 15.2 g/dL (12.0-15.0); Immature Granulocyte Absolute 0.03 K/mm3 (0.00-0.00); Immature Granulocyte Percent A 0.3 % (0.0-0.0); Lymphocytes Absolute Auto 1.93 K/mm3 (1.10-4.50); Lymphocytes Percent Auto 19.7 % (18.0-42.0); Mean Corpuscular HGB Conc 34.8 g/dL (32-36); Mean Corpuscular Hemoglobin 30.5 pg (27.0-31.0); Mean Corpuscular Volume 87.8 fL (78.0-102.0); Mean Platelet Volume 9.4 fl (9.2-11.8); Monocytes Absolute Auto 0.62 K/mm3 (0.10-0.90); Monocytes Percent Auto 6.3 % (2.0-11.0); Neutrophils Absolute Auto 7.13 K/mm3 (1.70-7.20); Neutrophils Percent Auto 72.8 % (50.0-70.0); Platelet Count Result 312 K/mm3 (150-420); Red Blood Count 4.98 M/mm3 (4.20-5.40); White Blood Count 9.8 K/mm3 (4.8-10.8)
[2024-06-22 11:06] LABS: Add Urine Microscopic? YES; Appearance Urine Clear (Clear); Bilirubin Urine Negative (Negative); Blood Urine Negative (Negative); Color Urine Light Yellow (Yellow); Glucose Urine UA Negative (Negative); Ketones Urine Negative (Negative); Leukocyte Esterase Ur Trace (Negative); Nitrate Urine Negative (Negative); Protein Urine Negative (Negative); Urobilinogen Urine 0.2 mg/dL (0.2-1.0)
[2024-06-22 11:13] LABS: Bacteria Urine Rare /hpf; RBC Urine None seen /hpf (0-2); Squamous Epithelial Cell Urine None Seen /hpf (Few); WBC Urine None seen /hpf (0-3)
[2024-06-22 12:01] LABS: Estimated Glomerular Filt Rate > 60
[2024-06-22 12:03] LABS: Alanine Aminotransferase 26 U/L (14-59); Albumin Level 3.9 g/dL (3.4-5.0); Alkaline Phosphatase 90 U/L (46-116); Amylase 60 U/L (25-115); Anion Gap 10 mmol/L (4-12); Aspartate Amino Transferase 20 U/L (15-37); Bilirubin,Total 0.5 mg/dL (0.00-1.00); Blood Urea Nitrogen 10 mg/dL (7-18); Calcium 9.4 mg/dL (8.5-10.1); Carbon Dioxide 28 mmol/L (21-32); Chloride 106 mmol/L (98-108); Glucose 95 mg/dL (70-99); Lipase 50 U/L (16-77); Osmolality Calculated 297 mOsm/kg (285-295); Potassium 4.6 mmol/L (3.5-5.1); Sodium 144 mmol/L (136-145); Total Protein 7.1 g/dL (6.4-8.2)
[2024-06-22 12:21] LABS: Lactic Acid Reflex 1.1 mmol/L (0.4-2.0)
== END 2024-06-22 10:46 | disposition home or self-care (01) ==
PROVIDERS: PCP Internal Medicine; Visit Provider Internal Medicine
DX: R10.9 Unspecified abdominal pain (principal); R11.2 Nausea with vomiting, unspecified
CPT/HCPCS: 36415; 74177; 80053; 81001; 82150; 83605; 83690; 85025; 87086; Q9967

== ENCOUNTER 2024-07-05 06:58 | Outpatient (CLI) | payer OTHER, SELFPAY ==
[2024-07-05 07:58] LABS: Free T4 Free Thyroxine 1.05 ng/mL (0.78-2.19)
[2024-07-06 15:38] LABS: Triiodothyronine T3 Free 3.1 pg/mL (2.3-4.2)
[2024-07-10 19:04] LABS: Thyroid Stimulating Immunoglob <89 % baseline (<140)
== END 2024-07-05 06:59 | disposition home or self-care (01) ==
LOC: ANHLAB 07:01
PROVIDERS: PCP Internal Medicine; Visit Provider Internal Medicine Endocrinology, Diabetes & Metabolism
DX: E05.00 Thyrotoxicosis with diffuse goiter without thyrotoxic crisis or storm (principal)
CPT/HCPCS: 36415; 83519; 84439; 84443; 84445

== ENCOUNTER 2024-09-25 11:58 | Outpatient (CLI) | payer OTHER, SELFPAY ==
--- NOTE | ~2024-09-25 | DEXA_ITS ---
Bone Density Report Name: MARCO ROBERTSON Age: 59 Sex: Female Ethnicity: White Date of : 1965 Indication: hyperparathyroidism; height loss; prior fracture; Referring Provider: ABDIAZIZ, SARI Study: Bone densitometry was performed. Exam Date: September 25, 2024 Accession number: [id number] Bone Density: Region BMD T-score Z-score Classification AP Spine(L1-L4) 1.121 0.7 2.0 Normal Femoral Neck (Left) 0.764 -0.8 0.5 Normal Total Hip (Left) 0.979 0.3 1.2 Normal Femoral Neck (Right) 0.792 -0.5 0.7 Normal Total Hip (Right) 0.970 0.2 1.1 Normal Total Hip Mean 0.975 0.3 1.2 Normal World Health Organization criteria for BMD impression classify patients as: Normal (T-score at or above -1.0), Osteopenia (T-score between -1.0 and -2.5), or Osteoporosis (T-score at or below -2.5). 10-year Fracture Risk: FRAX not reported because: All T-scores for Spine Total, Hip Total, Femoral Neck at or above -1.0 Clinical Information Provided by Patient: Has had a low trauma fracture Has the following medical conditions: Hyperparathyroidism Patient maximum height was 68.0 Menopause Age: 51 Drinks caffeinated beverages Onset of menses at age 16 Number of children 2 Impression: The patient has normal bone mass. The patient has risk factors, including: previous fracture. Discussion: BONE DENSITY IS ABOVE THE MINIMUM DESIRABLE LEVEL AT ALL SKELETAL SITES TESTED. This patient?s bone mineral density is above the minimum desirable level (T-score -1.0 or better) at all sites measured. The patient should follow a healthful lifestyle (good nutrition with adequate calcium and vitamin D, and appropriate weight-bearing exercise). Follow-Up: Consider repeating this study in 5 years or sooner if there is some new clinical indication. Reported by: SÁNCHEZ on 09/25/2024 12:34:00 PM. Reviewed, dictated and finalized at location A.
--- OUTSIDE RECORDS SUMMARY | 2024-09-25 12:27 | XMS_ITS ---
Author Organization [facility] Address [address] [place] [address] Phone Care Team Providers Care Putty Tinter Maker Name Role Phone NIMO QUAN, EZEKIEL Delgadillo Primary Care Provider [phone] DIOGO QUAN, GAGAN C Unavailable [phone] Problems Includes: Active, inactive, and resolved Problems All Visits Onset Date Resolved Date Provider Condition S tatus Ent Disorders 11/03/2018 PIYUSH SOLIS [facility] Active Last Documented On 11/03/2018 8:58AM ; [facility] Note: blood clot right eye Gynecologic Services Thermal Endometrial Ablation 09/13/2017 PIYUSH SOLIS [facility] Active Last Documented On 09/13/2017 3:12PM ; [facility] Note: - Dr. 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 PIYUSH SOLIS [facility]NP[facility]BC Active Last Documented On 07/20/2016 3:00PM ; [facility] Note: + Fibroid Family History 09/05/2014 PIYUSH SOLIS [facility]NP-[facility] Active Last Documented On 09/05/2014 2:24PM ; [facility] Note: sister of lung cancer, mother h/o breast cancer Endometriosis 09/28/2012 PIYUSH SOLIS [facility]NP[facility] Active Last Documented On 3 3:59PM ; [facility] Plan of Treatment Findings Encounter Date Ordered Clinical summary pro vided to patient ANNUAL RANGE RIDER EXAM with PIYUSH SOLIS [facility]NP[facility] 11/03/2018 Last Documented On 9 9:07AM ; [facility] Ordered follow-up visit 1 ye ar or as needed ANNUAL RANGE RIDER EXAM with PIYUSH SOLIS [facility]NP[facility] 11/03/2018 Last Documented On 9 9:07AM ; [facility] Ordered Clinical summary pro vided to patient ANNUAL RANGE RIDER EXAM with PIYUSH SOLIS [facility]NP[facility] 09/13/2017 Last Documented On 8 3:19PM ; [facility] Ordered follow-up visit 1 ye ar or as needed ANNUAL RANGE RIDER EXAM with PIYUSH SOLIS [facility] 09/13/2017 Last Documented On 8 3:19PM ; [facility] Ordered Clinical summary pro vided to patient HEATER ENGINEER HELPER EXAM with PIYUSH SOLIS [facility]NP[facility]BC 09/11/2016 Last Documented On 7 2:31PM ; [facility] Ordered follow-up visit 1 ye ar or as needed HEATER ENGINEER HELPER EXAM with PIYUSH SOLIS [facility]NP[facility]BC 09/11/2016 Last Documented On 7 2:31PM ; [facility] Ordered Clinical summary pro vided to patient PROCEDURE OFFICE with PIYUSH SOLIS [facility]NP[facility]BC 07/28/2016 Last Documented On 6 4:06PM ; [facility] Ordered Clinical summary pro vided to patient ENDOMETRIAL BIOPSY with PIYUSH SOLIS [facility]NP[facility] 07/20/2016 Last Documented On 6 3:14PM ; [facility] Ordered endometrial biopsy ENDOMETRIAL BIOPSY wi th PIYUSH SOLIS [facility]NP[facility]BC 07/20/2016 Last Documented On 6 3:14PM ; [facility] Ordered Clinical summary pro vided to patient ANNUAL RANGE RIDER EXAM with PIYUSH SOLIS [facility] 09/09/2015 Last Documented On 6 1:17PM ; [facility] Ordered follow-up visit 1 ye ar or as needed ANNUAL RANGE RIDER EXAM with PIYUSH SOLIS [facility] 09/09/2015 Last Documented On 6 1:17PM ; [facility] Ordered Clinical summary pro vided to patient ANNUAL RANGE RIDER EXAM with PIYUSH SOLIS [facility]NP[facility] 09/05/2014 Last Documented On 6 1:21PM ; [facility] Ordered follow-up visit 1 ye ar or as needed ANNUAL RANGE RIDER EXAM with PIYUSH SOLIS [facility]NP[facility] 09/05/2014 Last Documented On 6 1:21PM ; [facility] Ordered Clinical summary pro vided to patient ANNUAL RANGE RIDER EXAM with PIYUSH SOLIS [facility] 09/01/2013 Last Documented On 4 1:24PM ; [facility] Ordered follow-up visit 1 ye ar or as needed ANNUAL RANGE RIDER EXAM with PIYUSH SOLIS [facility] 09/01/2013 Last Documented On 4 1:24PM ; [facility] Ordered Clinical summary pro vided to patient NEW HEATER ENGINEER HELPER EXAM with PIYUSH SOLIS [facility] 08/29/2012 Last Documented On 3 10:08AM ; [facility] Ordered follow-up visit 1 ye ar or as needed NEW HEATER ENGINEER HELPER EXAM with PIYUSH SOLIS [facility] 08/29/2012 Last Documented On 3 10:08AM ; [facility] Instructions to patient Instructions for patient : B reast Self Exam discussed Last Documented On 9 8:43AM ; [facility] Instructions for patient : B reast Self Exam discussed Last Documented On 8 3:11PM ; [facility] Lose weight Last Documented On 8 3:11PM ; [facility] Colonoscopy Handout given to patient Last Documented On 8 3:11PM ; [facility] Instructions for patient : B reast Self Exam discussed Last Documented On 7 2:18PM ; [facility] Colonoscopy Handout given to patient Last Documented On 7 2:19PM ; [facility] Instructions for patient : p atient is to keep a menstrual diary to help with further evaluation and treatment Last Documented On 6 3:45PM ; [facility] Instructions for patient ER if dizzy, vomiting or light-headed due to heavy bleeding Last Documented On 6 3:45PM ; [facility] Instructions for patient ER if bleeding through reg. sized pad/tampon < 1 hour Last Documented On 6 2:52PM ; [facility] Instructions for patient : p atient is to keep a menstrual diary to help with further evaluation and treatment Last Documented On 6 2:52PM ; [facility] Instructions for patient ER if dizzy, vomiting or light-headed due to heavy bleeding Last Documented On 6 2:52PM ; [facility] Instructions for patient : K eep the area around the vulva dry. Allow the area to have exposure to air. Avoid irritants such as fabric softeners and perfumed soaps.~ Last Documented On 6 3:12PM ; [facility] Advised d/c scented bath pro ducts Last Documented On 6 3:12PM ; [facility] Instructions for patient : B reast Self Exam discussed Last Documented On 6 2:12PM ; [facility] Colonoscopy Handout given to patient Last Documented On 6 2:13PM ; [facility] Instructions for patient : B reast Self Exam discussed Last Documented On 5 2:14PM ; [facility] Instructions for patient : B reast Self Exam discussed Last Documented On 4 8:56AM ; [facility] Instructions for patient : K eep the area around the vulva dry. Allow the area to have exposure to air. Avoid irritants such as fabric softeners and perfumed soaps.~ Last Documented On 4 1:23PM ; [facility] Advised d/c scented bath pro ducts Last Documented On 4 1:23PM ; [facility] Instructed to call if excess fritz bleeding or abdominal/pelvic pain Last Documented On 3 3:52PM ; [facility] Patient may take Motrin OTC PRN as directed Last Documented On 3 3:52PM ; [facility] Instructions for patient : B reast Self Exam discussed Last Documented On 3 9:36AM ; [facility] Lose weight Last Documented On 3 9:37AM ; [facility] Instructions for patient : B reast Self Exam discussed. Reviewed monthly self breast examination and technique Last Documented On 1 1:47PM ; [facility] Recommend diet and exercise at least 30 min three times per week Last Documented On 1 1:47PM ; [facility] Discussed Gardasil vaccinati on and recommend vaccination for HPV prevention. Handout given. Patient understands sexual transmission of high-risk HPV and the association with abnormal pap smear and cervical cancer. Recommend to decrease high risk behaviors such as: number of sexual partners, smoking and contraception use Last Documented On 1 1:47PM ; [facility] Recommend preventative vacci nation including but not limited to influenza/flu vaccine, DTP, Rubella, Hepatitis B vaccination series Last Documented On 1 1:47PM ; [facility] Recommend annual pap smear e xamination or every three year if high risk hpv negative and 3 consecutive normal pap examination during preceding three years Last Documented On 1 1:47PM ; [facility] Recommend TSH, fasting gluco se, fasting lipid panel, CBC, BMP Last Documented On 1 1:47PM ; [facility] Recommend Calcium supplement ation and weight bearing exercise Last Documented On 1 1:47PM ; [facility] Instructions for patient : B reast Self Exam discussed. Reviewed monthly self breast examination and technique Last Documented On 0 11:42AM ; [facility] Recommend diet and exercise at least 30 min three times per week Last Documented On 0 11:42AM ; [facility] Discussed Gardasil vaccinati on and recommend vaccination for HPV prevention. Handout given. Patient understands sexual transmission of high-risk HPV and the association with abnormal pap smear and cervical cancer. Recommend to decrease high risk behaviors such as: number of sexual partners, smoking and contraception use Last Documented On 0 11:42AM ; [facility] Recommend preventative vacci nation including but not limited to influenza/flu vaccine, DTP, Rubella, Hepatitis B vaccination series Last Documented On 0 11:42AM ; [facility] Recommend annual pap smear e xamination or every three year if high risk hpv negative and 3 consecutive normal pap examination during preceding three years Last Documented On 0 11:42AM ; [facility] Recommend TSH, fasting gluco se, fasting lipid panel, CBC, BMP Last Documented On 0 11:42AM ; [facility] Recommend Calcium supplement ation and weight bearing exercise Last Documented On 0 11:42AM ; [facility] Education and Decision Aids were provided during visit for: Patient Education: Daily ilir cium and vitamin D Last Documented On 9 8:43AM ; [facility] Patient Education: weight be aring exercise Last Documented On 9 8:43AM ; [facility] Patient Education: Daily ilir cium and vitamin D Last Documented On 8 3:11PM ; [facility] Patient Education: weight be aring exercise Last Documented On 8 3:11PM ; [facility] Patient Education: Daily ilir cium and vitamin D Last Documented On 7 2:18PM ; [facility] Patient Education: weight be aring exercise Last Documented On 7 2:18PM ; [facility] INFORMED CONSENT DISCUSSION: Endometrial biopsy was discussed in detail including discomfort, insufficient specimen with need to repeat test, and rare incidence of uterine perforation. Patient expressed understanding of the above and consented to the procedure Last Documented On 6 3:45PM ; [facility] Bacterial Vaginosis Informat ion Sheet Given Last Documented On 6 3:12PM ; [facility] Patient Education: Daily ilir cium and vitamin D Last Documented On 6 2:12PM ; [facility] Patient Education: weight be aring exercise Last Documented On 6 2:12PM ; [facility] Patient Education: Daily ilir cium and vitamin D Last Documented On 5 2:14PM ; [facility] Patient Education: weight be aring exercise Last Documented On 5 2:14PM ; [facility] Patient Education: Daily ilir cium and vitamin D Last Documented On 4 8:56AM ; [facility] Patient Education: weight be aring exercise Last Documented On 4 8:56AM ; [facility] Candidiasis Vulvovaginitis I nformation Sheet Given Last Documented On 4 1:23PM ; [facility] INFORMED CONSENT DISCUSSION: Endometrial biopsy was discussed in detail including discomfort, insufficient specimen with need to repeat test, and rare incidence of uterine perforation. Patient expressed understanding of the above and consented to the procedure Last Documented On 3 3:52PM ; [facility] Patient Education: Daily ilir cium and vitamin D Last Documented On 3 9:36AM ; [facility] Patient Education: weight be aring exercise Last Documented On 3 9:36AM ; [facility] The patient was counseled re garding the following vaccinations : Dtap, flu, Gardasil, pneumovax, shingles, Hapatitis B, H1N1. Handouts given Last Documented On 1 4:29PM ; [facility] Assessments Includes: Assessments for all patient encounters Findings Encounter Date NORMAL FEMALE EXAM ANNUAL RANGE RIDER EXAM with PIYUSH SOLIS [facility] 11/03/2018 Last Documented On 9 9:07AM ; [facility] Screening Malig. Neoplasm Rectum ANNUAL RANGE RIDER EXAM with PIYUSH SOLIS [facility] 11/03/2018 Last Documented On 9 9:07AM ; [facility] NORMAL FEMALE EXAM ANNUAL RANGE RIDER EXAM with PIYUSH SOLIS NP-BC 09/13/2017 Last Documented On 8 3:19PM ; [facility] Screening Malig. Neoplasm Rectum ANNUAL RANGE RIDER EXAM with PIYUSH SOLIS [facility] 09/13/2017 Last Documented On 8 3:19PM ; [facility] POST OP VISIT POST OP VISIT with EMELINA ARBOLEDA MD 10/12/2016 Last Documented On 7 3:27PM ; [facility] Menorrhagia PROCEDURE OFFICE with EMELINA GARZA MD 09/28/2016 Last Documented On 7 3:59PM ; [facility] NORMAL FEMALE EXAM HEATER ENGINEER HELPER EXAM with PIYUSH Isaac [facility] 09/11/2016 Last Documented On 7 2:31PM ; [facility] Screening Malig. Neoplasm Rectum HEATER ENGINEER HELPER EXAM with Claude SOLIS [facility] 09/11/2016 Last Documented On 7 2:31PM ; [facility] Menorrhagia CONSULTATION with EMELINA ARBOLEDA MD 09/04/2016 Last Documented On 7 2:01PM ; [facility] Menorrhagia PROCEDURE OFFICE with PIYUSH EVANS NP-BC 07/28/2016 Last Documented On 6 4:06PM ; [facility] Menorrhagia ENDOMETRIAL BIOPSY with PIYUSH SOLIS NP-BC 07/20/2016 Last Documented On 6 3:14PM ; [facility] Vulvovaginitis ENDOMETRIAL BIOPSY with PIYUSHEDEL SOLIS NP-BC 07/20/2016 Last Documented On 6 3:14PM ; [facility] NORMAL FEMALE EXAM ANNUAL RANGE RIDER EXAM with PIYUSH SOLIS NP-BC 09/09/2015 Last Documented On 6 1:17PM ; [facility] Screening Malig. Neoplasm Rectum ANNUAL RANGE RIDER EXAM with PIYUSHEDEL SOLIS NP-BC 09/09/2015 Last Documented On 6 1:17PM ; [facility] NORMAL FEMALE EXAM ANNUAL RANGE RIDER EXAM with PIYUSHEDEL SOLIS NP-BC 09/05/2014 Last Documented On 6 1:21PM ; [facility] Screening Malig. Neoplasm Rectum ANNUAL RANGE RIDER EXAM with PIYUSH SOLIS NP-BC 09/05/2014 Last Documented On 6 1:21PM ; [facility] Rae albicans vulvovaginitis ANNUAL RANGE RIDER EXAM with PIYUSHEDEL SOLIS NP-BC 09/01/2013 Last Documented On 4 1:24PM ; [facility] NORMAL FEMALE EXAM ANNUAL RANGE RIDER EXAM with PIYUSH SOLIS NP-BC 09/01/2013 Last Documented On 4 1:24PM ; [facility] Screening Malig. Neoplasm Rectum ANNUAL RANGE RIDER EXAM with PIYUSH SOLIS NP-BC 09/01/2013 Last Documented On 4 1:24PM ; [facility] NORMAL FEMALE EXAM NEW HEATER ENGINEER HELPER EXAM with PIYUSH SALINAS MARCEL NP-BC 08/29/2012 Last Documented On 3 10:08AM ; [facility] Screening Malig. Neoplasm Rectum NEW HEATER ENGINEER HELPER EXAM wi th PIYUSH SOLIS NP-BC 08/29/2012 Last Documented On 3 10:08AM ; [facility] MAMMOGRAM SCREENING HEATER ENGINEER HELPER EXAM with TATIANA AYALA M.D. 08/04/2011 Last Documented On 1 1:57PM ; [facility] NORMAL FEMALE EXAM HEATER ENGINEER HELPER EXAM with TATIANA CABRERA M.D. 08/04/2011 Last Documented On 1 1:57PM ; [facility] Dysfunctional uterine bleeding PROBLEM VISIT wit h TATIANA BHATT M.D. 01/28/2011 Last Documented On 1 4:35PM ; [facility] Cervical polyps PROCEDURE OFFICE with TATIANA BHATT M.D. 09/04/2010 Last Documented On 1 9:27AM ; [facility] Cervical polyps NEW HEATER ENGINEER HELPER EXAM with TATIANA AYALA M.D. 07/23/2010 Last Documented On 0 11:46AM ; [facility] MAMMOGRAM SCREENING NEW HEATER ENGINEER HELPER EXAM with TATIANA BHATT M.D. 07/23/2010 Last Documented On 0 11:46AM ; [facility] NORMAL FEMALE EXAM NEW HEATER ENGINEER HELPER EXAM with TATIANA CORTES M.D. 07/23/2010 Last Documented On 0 11:46AM ; [facility] Instructions Includes: Instructions for all patient encounters Instructions to patient Instructions for patient : B reast Self Exam discussed Last Documented On 9 8:43AM ; [facility] Instructions for patient : B reast Self Exam discussed Last Documented On 8 3:11PM ; [facility] Lose weight Last Documented On 8 3:11PM ; [facility] Colonoscopy Handout given to patient Last Documented On 8 3:11PM ; [facility] Instructions for patient : B reast Self Exam discussed Last Documented On 7 2:18PM ; [facility] Colonoscopy Handout given to patient Last Documented On 7 2:19PM ; [facility] Instructions for patient : p atient is to keep a menstrual diary to help with further evaluation and treatment Last Documented On 6 3:45PM ; [facility] Instructions for patient ER if dizzy, vomiting or light-headed due to heavy bleeding Last Documented On 6 3:45PM ; [facility] Instructions for patient ER if bleeding through reg. sized pad/tampon < 1 hour Last Documented On 6 2:52PM ; [facility] Instructions for patient : p atient is to keep a menstrual diary to help with further evaluation and treatment Last Documented On 6 2:52PM ; [facility] Instructions for patient ER if dizzy, vomiting or light-headed due to heavy bleeding Last Documented On 6 2:52PM ; [facility] Instructions for patient : K eep the area around the vulva dry. Allow the area to have exposure to air. Avoid irritants such as fabric softeners and perfumed soaps.~ Last Documented On 6 3:12PM ; [facility] Advised d/c scented bath pro ducts Last Documented On 6 3:12PM ; [facility] Instructions for patient : B reast Self Exam discussed Last Documented On 6 2:12PM ; [facility] Colonoscopy Handout given to patient Last Documented On 6 2:13PM ; [facility] Instructions for patient : B reast Self Exam discussed Last Documented On 5 2:14PM ; [facility] Instructions for patient : B reast Self Exam discussed Last Documented On 4 8:56AM ; [facility] Instructions for patient : K eep the area around the vulva dry. Allow the area to have exposure to air. Avoid irritants such as fabric softeners and perfumed soaps.~ Last Documented On 4 1:23PM ; [facility] Advised d/c scented bath pro ducts Last Documented On 4 1:23PM ; [facility] Instructed to call if excess fritz bleeding or abdominal/pelvic pain Last Documented On 3 3:52PM ; [facility] Patient may take Motrin OTC PRN as directed Last Documented On 3 3:52PM ; [facility] Instructions for patient : B reast Self Exam discussed Last Documented On 3 9:36AM ; [facility] Lose weight Last Documented On 3 9:37AM ; [facility] Instructions for patient : B reast Self Exam discussed. Reviewed monthly self breast examination and technique Last Documented On 1 1:47PM ; [facility] Recommend diet and exercise at least 30 min three times per week Last Documented On 1 1:47PM ; [facility] Discussed Gardasil vaccinati on and recommend vaccination for HPV prevention. Handout given. Patient understands sexual transmission of high-risk HPV and the association with abnormal pap smear and cervical cancer. Recommend to decrease high risk behaviors such as: number of sexual partners, smoking and contraception use Last Documented On 1 1:47PM ; [facility] Recommend preventative vacci nation including but not limited to influenza/flu vaccine, DTP, Rubella, Hepatitis B vaccination series Last Documented On 1 1:47PM ; [facility] Recommend annual pap smear e xamination or every three year if high risk hpv negative and 3 consecutive normal pap examination during preceding three years Last Documented On 1 1:47PM ; [facility] Recommend TSH, fasting gluco se, fasting lipid panel, CBC, BMP Last Documented On 1 1:47PM ; [facility] Recommend Calcium supplement ation and weight bearing exercise Last Documented On 1 1:47PM ; [facility] Instructions for patient : B reast Self Exam discussed. Reviewed monthly self breast examination and technique Last Documented On 0 11:42AM ; [facility] Recommend diet and exercise at least 30 min three times per week Last Documented On 0 11:42AM ; [facility] Discussed Gardasil vaccinati on and recommend vaccination for HPV prevention. Handout given. Patient understands sexual transmission of high-risk HPV and the association with abnormal pap smear and cervical cancer. Recommend to decrease high risk behaviors such as: number of sexual partners, smoking and contraception use Last Documented On 0 11:42AM ; [facility] Recommend preventative vacci nation including but not limited to influenza/flu vaccine, DTP, Rubella, Hepatitis B vaccination series Last Documented On 0 11:42AM ; [facility] Recommend annual pap smear e xamination or every three year if high risk hpv negative and 3 consecutive normal pap examination during preceding three years Last Documented On 0 11:42AM ; [facility] Recommend TSH, fasting gluco se, fasting lipid panel, CBC, BMP Last Documented On 0 11:42AM ; [facility] Recommend Calcium supplement ation and weight bearing exercise Last Documented On 0 11:42AM ; [facility] Education and Decision Aids were provided during visit for: Patient Education: Daily ilir cium and vitamin D Last Documented On 9 8:43AM ; [facility] Patient Education: weight be aring exercise Last Documented On 9 8:43AM ; [facility] Patient Education: Daily ilir cium and vitamin D Last Documented On 8 3:11PM ; [facility] Patient Education: weight be aring exercise Last Documented On 8 3:11PM ; [facility] Patient Education: Daily ilir cium and vitamin D Last Documented On 7 2:18PM ; [facility] Patient Education: weight be aring exercise Last Documented On 7 2:18PM ; [facility] INFORMED CONSENT DISCUSSION: Endometrial biopsy was discussed in detail including discomfort, insufficient specimen with need to repeat test, and rare incidence of uterine perforation. Patient expressed understanding of the above and consented to the procedure Last Documented On 6 3:45PM ; [facility] Bacterial Vaginosis Informat ion Sheet Given Last Documented On 6 3:12PM ; [facility] Patient Education: Daily ilir cium and vitamin D Last Documented On 6 2:12PM ; [facility] Patient Education: weight be aring exercise Last Documented On 6 2:12PM ; [facility] Patient Education: Daily ilir cium and vitamin D Last Documented On 5 2:14PM ; [facility] Patient Education: weight be aring exercise Last Documented On 5 2:14PM ; [facility] Patient Education: Daily ilir cium and vitamin D Last Documented On 4 8:56AM ; [facility] Patient Education: weight be aring exercise Last Documented On 4 8:56AM ; [facility] Candidiasis Vulvovaginitis I nformation Sheet Given Last Documented On 4 1:23PM ; [facility] INFORMED CONSENT DISCUSSION: Endometrial biopsy was discussed in detail including discomfort, insufficient specimen with need to repeat test, and rare incidence of uterine perforation. Patient expressed understanding of the above and consented to the procedure Last Documented On 3 3:52PM ; [facility] Patient Education: Daily ilir cium and vitamin D Last Documented On 3 9:36AM ; [facility] Patient Education: weight be aring exercise Last Documented On 3 9:36AM ; [facility] The patient was counseled re garding the following vaccinations : Dtap, flu, Gardasil, pneumovax, shingles, Hapatitis B, H1N1. Handouts given Last Documented On 1 4:29PM ; [facility] Medical Equipment - Implanted Devices Includes: Current and historical Devices No Medical Equipment Recorded Medications Includes: Current and historical Medications Current Medications (continue as prescribed) Adult Aspirin Regimen 81MG Oral Tablet Delayed Release 11/03/2018 Provider: Diagnosis: Last Documented On 11/03/2018 8:56AM By EDMUND MURARY ; [facility] CO-Q 10 [place]-3 Fish Oil OR CAPS 09/05/2014 Provider : Diagnosis: Last Documented On 09/05/2014 2:22PM By EDMUND MURRAY ; [facility] Bee Pollen 500 MG OR CHEW 09/05/2014 Provider: Diagnosis: Last Documented On 09/05/2014 2:22PM By EDMUND MURRAY ; [facility] B Complex OR CAPS 09/05/2014 Provider: Diagnosis: Last Documented On 09/05/2014 2:22PM By EDMUND MURRAY ; [facility] Folic Acid 400 MCG OR TABS 09/05/2014 Provider: Diagnosis: Last Documented On 09/05/2014 2:22PM By EDMUND MURRAY ; [facility] Womens Multivitamin Plus OR TABS 08/29/2012 Provider : Diagnosis: Last Documented On 08/29/2012 9:54AM By RADHAMES MURRAY ; [facility] Past Medications on file Valium 10MG Oral Tablet 09/28/2016 - 10/12/2016 Provid er: Diagnosis: Last Documented On 10/12/2016 2:51PM By SPIKE GRACE LPN ; [facility] Ibuprofen 600MG Oral Tablet 09/28/2016 - 10/12/2016 Pr ovider: Diagnosis: Last Documented On 10/12/2016 2:51PM By SPIKE GRACE LPN ; [facility] Doxycycline Hyclate 100MG Or al Capsule, conventional 09/28/2016 - 10/12/2016 Provider: Diagnosis: Last Documented On 10/12/2016 2:50PM By SPIKE GRACE LPN ; [facility] [place] 5/500mg Oral Tablet 09/28/2016 - 10/12/2016 Pr ovider: Diagnosis: Last Documented On 10/12/2016 2:51PM By SPIKE GRACE LPN ; [facility] [place] 5-325 MG Tablet 09/04/2016 - 09/07/2016 Provider : EMELINA ARBOLEDA MD Diagnosis: 1-2 every 4-6 hours as needed Last Documented On 09/04/2016 1:56PM By EMELINA ARBOLEDA MD ; [facility] Calcium 500 MG Tablet 09/04/2016 - 09/13/2017 Provider : Diagnosis: Last Documented On 09/13/2017 3:09PM By EDMUND MURRAY ; [facility] Flagyl 500 MG Tablet 07/20/2016 - 07/27/2016 Provider: PIYUSH NICK Diagnosis: Acute vaginitis One tablet twice a day Last Documented On 6 3:14PM By PIYUSH NICK ; [facility] Diflucan 150 MG OR TABS 09/01/2013 - 10/01/2013 Provider: PIYUSH NICK Diagnosis: CANDIDAL VULVOVA GINITIS one dose po x 1 and rpt. in 3 days Last Documented On 4 1:23PM By PIYUSH NICK ; [facility] Medications Administered Includes: Administered Medications in patient's chart Medications Administered Diagnosis Date Pro vider Ketorolac Tromethamine 60 MG/2ML IM SOLN 09/28/2016 EMELINA ARBOLEDA MD Last Documented On 7 1:08PM By DEVIN MURRAY ; [facility] Results Includes: Results from 09/25/2023 through 09/25/2024 No Results Recorded For Specified Dates History of Present Illness History of Present Illness not supported for this document type No History of Present Illness Recorded Social History Description Last Updated Alcohol use socially 11/03/2018 Last Documented On 9 9:07AM ; [facility] Non-smoker 11/03/2018 Last Documented On 9 9:07AM ; [facility] Not using drugs 11/03/2018 Last Documented On 9 9:07AM ; [facility] Sexually active with 1 partners in the l ast year 11/03/2018 Last Documented On 9 9:07AM ; [facility] Social history unchanged 11/03/2018 Last Documented On 9 9:07AM ; [facility] Smoking status : Former smoker 9 Last Documented On 9 9:07AM ; [facility] Age of 1st intercourse was was 18 2017 Last Documented On 8 3:19PM ; [facility] Procedures and Surgical History Surgical History Last Updated History of tubal ligation 1994 7 Last Documented On 7 3:27PM ; [facility] History of cholecystectomy 09/01/2013 Last Documented On 4 1:24PM ; [facility] Surgical / procedural history BACK SURGE RY 83 09/01/2013 Last Documented On 4 1:24PM ; [facility] Tonsillectomy 09/01/2013 Last Documented On 4 1:24PM ; [facility] Medical History Includes: Medical History in patient's chart Description Last Updated Recent change in medical his tory pt currently has a blood clot in her retina-injections 8 weeks-she said it is resolving 11/03/2018 Last Documented On 9 9:07AM ; [facility] History of Pap smear done 09/13/201710/15 Last Documented On 9 9:07AM ; [facility] Sexually active 11/03/2018 Last Documented On 9 9:07AM ; [facility] History of complete colonoscopy 2017 rep eat in [address] nunes 11/03/2018 Last Documented On 9 9:07AM ; [facility] History of screening mammogram was perfo rmed 09/13/2017 11/03/2018 Last Documented On 9 9:07AM ; [facility] Result: normal 11/03/2018 Last Documented On 9 9:07AM ; [facility] Result: normal 11/03/2018 Last Documented On 9 9:07AM ; [facility] 2 09/13/2017 Last Documented On 8 3:19PM ; [facility] Para 2 09/13/2017 Last Documented On 8 3:19PM ; [facility] Partner with vasectomy 09/13/2017 Last Documented On 8 3:19PM ; [facility] LMP: 2017 09/13/2017 Last Documented On 8 3:19PM ; [facility] Status post tubal ligation 199209/13/19 Last Documented On 8 3:19PM ; [facility] Family History Includes: Family History in patient's chart Description Last Updated Family history unchanged 11/03/2018 Last Documented On 9 9:07AM ; [facility] Maternal history of hypertension parents 11/03/2018 Last Documented On 9 9:07AM ; [facility] Maternal history of malignant female dorothy ast neoplasm pt mother 11/03/2018 Last Documented On 9 9:07AM ; [facility] Paternal history of family history of he art disease DAD 11/03/2018 Last Documented On 9 9:07AM ; [facility] Paternal history of pure hypercholestero lemia father 11/03/2018 Last Documented On 9 9:07AM ; [facility] Family history of malignant female breas t neoplasm pt mother 09/13/2017 Last Documented On 8 3:19PM ; [facility] sister had lung ca 09/09/2015 Last Documented On 6 1:17PM ; [facility] Spouse name: Abner 09/01/2013 Last Documented On 4 1:24PM ; [facility] Family history of hypercholesterolemia f ather 09/01/2013 Last Documented On 4 1:24PM ; [facility] Family history of hypertension parents 0 09/01/2013 Last Documented On 4 1:24PM ; [facility] First child named Nicole 1987 1 Last Documented On 1 4:35PM ; [facility] Second child named Joesph 199101/29/20 11 Last Documented On 1 4:35PM ; [facility] Heart disease DAD 09/04/2010 Last Documented On 1 9:27AM ; [facility] Family history of uterine cancer 010 Last Documented On 0 11:46AM ; [facility] Review of Systems Review of Systems not supported for this document type No Review of Systems Recorded Mental Status No Mental Status Recorded Functional Status No Functional Status Recorded Physical Exam Physical Exam not supported for this document type No Physical Exam Recorded Immunizations Includes: Immunizations in patient's chart Vaccine Dose # Date Site Reaction(s) Status Source DTaP 1 Complete (Reported) Ania ent Last Documented On 0 11:34AM ; [facility] Td 1 Complete (Reported) Ania ent Last Documented On 0 11:34AM ; [facility] Allergies Includes: Active, inactive, and resolved Allergies Substance Type Reaction Onset Date Resolved Date Statu s Codeine Allergy Nausea, Vomiting , Diarrhea / Diarrheal disorder 07/23/2010 Active Last Documented On 7 2:51PM ; [facility] Insurance Includes: Active Insurance Policies Plan Name Member ID Group # Subscriber Relationship Effect fritz Dates 1 - [facility] [id number] ABNER ROBERTSON Clinical Notes Includes: Signed Clinical Notes starting from 09/04/2022 No Clinical Notes Recorded
--- OUTSIDE RECORDS SUMMARY | 2024-09-25 12:27 | XMS_ITS | Clinical Summary ---
Author Organization [facility] Address [address] [place] [address] Phone Care Team Providers Care Crane Follower Name Role Phone Les Garber MD Primary Care Provider + Allergies No known active allergies Medications cholecalciferol, Vitamin D3, (VITAMIN D3) 1,000 unit Capsule Take by mouth daily. Active aspirin (ECOTRIN EC) 81 mg Tablet, Delayed Release (E.C.) Take 81 mg by mouth daily. Active Saccharomyces boulardii (FLORASTOR) 250 mg Capsule Take by mouth. Active Active Problems Problem Noted Date Diagnosed Date Pulmonary nodules 06/29/2019 Immunizations Immunization Administration Dates Next Due INFLUENZA VACCINE QUADRIVALENT 3 YR UP PF IM Family History Medical History Relation Name Comments Heart Disease Father Hypertension Father Breast Cancer Mother Cancer Mother Dementia Mother Cancer Sister 1 Lung Cancer Sister 1 Relation Name Status Comments Brother Father in sleep o f possible heart attack Mother Sister 1 non small cell lung cancer Sister 2 Alive Social History Tobacco Use Types Packs/Day Years Used Date Smoking Tobacco: Never Smokeless Tobacco: Never Alcohol Use Standard Drinks/Week Comments Yes 0 (1 standard drink = 0.6 oz pur e alcohol) Comments No Sex and Gender Information Value Date Recorded Sex Assigned at Not on file Legal Sex Female 2:26 PM [employer] Gender Identity Not on file Sexual Orientation Not on file Last Filed Vital Signs Vital Sign Reading Time Taken Comments Blood Pressure 144/79 06/29/2019 3:15 PM [employer] Pulse 82 06/29/2019 3:15 PM [employer] Temperature 36.4 C (97.5 F) 06/29/2019 3:15 PM [employer] Respiratory Rate - - Oxygen Saturation 98% 06/29/2019 3:15 PM [employer] Inhaled Oxygen Concentration - - Weight 74.5 kg (164 lb 4.8 oz) 06/29/2019 3:15 P M [employer] Height 170.2 cm (5' 7) 06/29/2019 3:15 PM [employer] Body Mass Index 25.73 06/29/2019 3:15 PM [employer] Plan of Treatment Health Maintenance Due Date Last Done Comments DTAP/TDAP/TD VACCINES (1 - Tdap) 1984 HEPATITIS B VACCINES (1 of 3 - 19+ 3-dose series) 1984 CERVICAL CANCER SCREENING 1995 BREAST CANCER SCREENING 2005 COLORECTAL SCREENING 2010 Colorectal Cancer Screening 2010 FIT-DNA Q 3 years 2010 FIT/FOBT Q 1 year 2010 Flex Sig/CT Colonography Q 5 years 2010 ZOSTER VACCINE (1 of 2) 2015 INFLUENZA VACCINE (#1) 2024 06/01/2017 PNEUMOCOCCAL VACCINE 0-64 YEARS Aged Out No longer eligible based on patient's age to complete this topic Insurance [id number] [id number] Care Teams Crane Follower Relationship Specialty Start Date End Date Les Garber MD [address] [place] [id number] PCP - General Internal Medicine 12/29/18
--- OUTSIDE RECORDS SUMMARY | 2024-09-25 12:28 | XMS_ITS | Clinical Summary ---
Author Organization [facility] Address [address] [place] [address] Phone Care Team Providers Care Recreational Aide Name Role Phone NIMO QUAN, EZEKIEL Delgadillo Primary Care Provider [phone] DIOGO QUAN, GAGAN C Unavailable [phone] Reason for Visit and Chief Complaint The Chief Complaint is: annual Problems Includes: Problems addressed during this encounter and other active Problems Current Visit Onset Date Resolved Date Provider Conditio n Status Gynecologic Services Thermal Endometrial Ablation 09/13/2017 PIYUSH SOLIS WHNP-BC Active Last Documented On 09/13/2017 3:12PM ; [facility] Note: - Dr. 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 PIYUSH SOLIS WHNP-BC Active Last Documented On 07/20/2016 3:00PM ; [facility] Note: + Fibroid Family History 09/05/2014 PIYUSH SOLIS WHNP-BC Active Last Documented On 09/05/2014 2:24PM ; [facility] Note: sister of lung cancer, mother h/o breast cancer Endometriosis 09/28/2012 PIYUSH SOLIS WHNP-BC Active Last Documented On 3 3:59PM ; [facility] Plan of Treatment - Follow-up visit 1 year or as needed - Last Documented On 09/13/2017 3:19PM ; [facility] - Clinical summary provided to patient - Last Documented On 09/13/2017 3:19PM ; [facility] Instructions to patient Instructions for patient : B reast Self Exam discussed Last Documented On 8 3:11PM ; [facility] Lose weight Last Documented On 8 3:11PM ; [facility] Colonoscopy Handout given to patient Last Documented On 8 3:11PM ; [facility] Education and Decision Aids were provided during visit for: Patient Education: Daily ilir cium and vitamin D Last Documented On 8 3:11PM ; [facility] Patient Education: weight be aring exercise Last Documented On 8 3:11PM ; [facility] Assessments Includes: Assessments from this encounter Findings - NORMAL FEMALE EXAM - Last Documented On 09/13/2017 3:19PM ; [facility] - Screening Malig. Neoplasm Rectum - Last Documented On 09/13/2017 3:19PM ; [facility] Instructions Includes: Instructions from this encounter Instructions to patient Instructions for patient : B reast Self Exam discussed Last Documented On 8 3:11PM ; [facility] Lose weight Last Documented On 8 3:11PM ; [facility] Colonoscopy Handout given to patient Last Documented On 8 3:11PM ; [facility] Education and Decision Aids were provided during visit for: Patient Education: Daily ilir cium and vitamin D Last Documented On 8 3:11PM ; [facility] Patient Education: weight be aring exercise Last Documented On 8 3:11PM ; [facility] Medical Equipment - Implanted Devices Includes: Current Devices No Medical Equipment Recorded Medications Includes: Medications discussed during this encounter and other current Medications Discontinued / Stopped on this date on 09/04/2016 Calcium 500 MG Tablet Provider: Diagnosis: Last Documented On 09/13/2017 3:09PM By EDMUND MURRAY ; [facility] Current Medications (continue as prescribed) Adult Aspirin Regimen 81MG Oral Tablet Delayed Release 11/03/2018 Provider: Diagnosis: Last Documented On 11/03/2018 8:56AM By EDMUND MURRAY ; [facility] CO-Q 10 [place]-3 Fish Oil OR CAPS 09/05/2014 Provider : Diagnosis: Last Documented On 09/05/2014 2:22PM By EDMUND MURRAY ; [facility] Bee Pollen 500 MG OR CHEW 09/05/2014 Provider: Diagnosis: Last Documented On 09/05/2014 2:22PM By EDMUND MURRAY ; [facility] B Complex OR CAPS 09/05/2014 Provider: Diagnosis: Last Documented On 09/05/2014 2:22PM By EDMUND MURRAY ; [facility] Folic Acid 400 MCG OR TABS 09/05/2014 Provider: Diagnosis: Last Documented On 09/05/2014 2:22PM By EDMUND MURRAY ; [facility] Womens Multivitamin Plus OR TABS 08/29/2012 Provider : Diagnosis: Last Documented On 08/29/2012 9:54AM By RADHAMES MURRAY ; [facility] Past Medications on file [place] 5-325 MG Tablet 09/04/2016 - 09/07/2016 Provider : EMELINA ARBOLEDA MD Diagnosis: 1-2 every 4-6 hours as needed Last Documented On 09/04/2016 1:56PM By EMELINA ARBOLEDA MD ; [facility] Flagyl 500 MG Tablet 07/20/2016 - 07/27/2016 Provider: PIYUSH ALMANZAR Diagnosis: Acute vaginitis One tablet twice a day Last Documented On 6 3:14PM By PIYUSH NICK ; [facility] Diflucan 150 MG OR TABS 09/01/2013 - 10/01/2013 Provider: PIYUSH ALMANZARBC Diagnosis: CANDIDAL VULVOVA GINITIS one dose po x 1 and rpt. in 3 days Last Documented On 4 1:23PM By PIYUSH NICK ; [facility] Medications Administered Includes: Administered Medications from this encounter No Administered Medications Recorded Vital Signs Includes: Vital Signs from this encounter Vital Name 09/13/2017 03:09P 09/13/2017 03: 05P Blood Pressure Sitting (mmHg) 112/70 Height (in) 66.5 67 Weight (lb) 167 Body Mass Index (kg/m2) 26.6 Body Surface Area (m2) 1.9 Last Documented: On 09/13/2017 3:10PM ; [facility] On 09/13/2017 3:07PM ; [facility] Results Includes: Results discussed during this encounter THINPREP TIS AND HPV mRNA E6/E7 [employer] Ordered by PIYUSH NICK on 08/17 Collected: 09/11/2016 Reported: 09/17/19 17 10:14 Last Documented On 7 10:31AM ; [facility] Reviewed by PIYUSH HERNDON on 09/17/2016; All test results are final unless otherwise noted. HPV mRNA E6/E7 Not Detected (Not Detected) N (Normal) Last Documented On 7 10:31AM ; [facility] Note: This test was performed using the APTIMA HPV Assay ([employer]This assay detects E6/E7 viral messenger RNA (mRNA) from 14high-risk HPV types (16,18,31,33,35,39,45,51,52,56,58,59,66,68). SOURCE: Cervix, Endocervix N (Normal) Last Documented On 7 10:31AM ; [facility] CLINICAL INFORMATION: Routine exam N (Normal) Last Documented On 7 10:31AM ; [facility] LMP: 1-11-17 N (Normal) Last Documented On 7 10:31AM ; [facility] PREV. PAP: 2014 N (Normal) Last Documented On 7 10:31AM ; [facility] PREV. BX: NONE N (Normal) Last Documented On 7 10:31AM ; [facility] STATEMENT OF ADEQUACY: Satisfactory for evaluation. Endocervical/transformation zone component present. N (Normal) Last Documented On 7 10:31AM ; [facility] INTERPRETATION/RESULT: Negative for intraepithelial lesion or malignancy. N (Normal) Last Documented On 7 10:31AM ; [facility] COMMENT: This Pap test has been evaluated with computer assisted technology. N (Normal) Last Documented On 7 10:31AM ; [facility] POKER IN: SUPRIYA DAILEY(ASCP) CT screening location: [place] [address] [place] [address] N (Normal) Last Documented On 7 10:31AM ; [facility] History of Present Illness Includes: History of Present Illness from this encounter No History of Present Illness Recorded Social History Description Last Updated Age of 1st intercourse was was 18 2017 Last Documented On 8 3:19PM ; [facility] Alcohol use: 2 drinks or less per day oc c 09/13/2017 Last Documented On 8 3:19PM ; [facility] Alcohol use: 2 drinks or less per day Last Documented On 8 3:19PM ; [facility] Non-smoker 09/13/2017 Last Documented On 8 3:19PM ; [facility] Sexually active 09/13/2017 Last Documented On 8 3:19PM ; [facility] Smoking Status Unknown Procedures and Surgical History Includes: Procedures from this encounter Procedures Code Diagnosis Performing Provider Service L ocation Service Date low fat diet Last Documented On 8 3:11PM ; [facility] fecal occult blood test was negative 82252 Last Documented On 8 3:11PM ; [facility] Cervical Pap Smear performed Q0091 Last Documented On 8 3:18PM ; [facility] Surgical History Last Updated History of tubal ligation 1994 7 Last Documented On 8 3:05PM ; [facility] History of cholecystectomy 09/01/2013 Last Documented On 8 3:05PM ; [facility] Surgical / procedural history BACK SURGE RY 83 09/01/2013 Last Documented On 8 3:05PM ; [facility] Tonsillectomy 09/01/2013 Last Documented On 8 3:05PM ; [facility] Medical History Includes: Medical History addressed during this encounter Description Last Updated 2 09/13/2017 Last Documented On 8 3:19PM ; [facility] Para 2 09/13/2017 Last Documented On 8 3:19PM ; [facility] Partner with vasectomy 09/13/2017 Last Documented On 8 3:19PM ; [facility] LMP: 2017 09/13/2017 Last Documented On 8 3:19PM ; [facility] Patient recently had a dexa scan none Last Documented On 8 3:19PM ; [facility] Status post tubal ligation 199209/13/19 18 Last Documented On 8 3:19PM ; [facility] A colonoscopy was performed 2015 018 Last Documented On 8 3:19PM ; [facility] Contraception: had a vasectomy 0 09/13/2017 Last Documented On 8 3:19PM ; [facility] Last mammogram date: 09/11/2016 8 Last Documented On 8 3:19PM ; [facility] Last pap smear date 09/01/2013 09/13/2017 Last Documented On 8 3:19PM ; [facility] Family History Includes: Family History addressed during this encounter Description Last Updated Family history of malignant female breas t neoplasm pt mother 09/13/2017 Last Documented On 8 3:19PM ; [facility] Review of Systems Includes: Review of Systems from this encounter Gastrointestinal: No pelvic pain. Genitourinary: No menorrhagia. No dysmenorrhea and no bleeding between periods. No vaginal discharge. Mental Status Includes: Mental Status from this encounter No Mental Status Recorded Functional Status Includes: Functional Status from this encounter No Functional Status Recorded Physical Exam Includes: Physical Exam from this encounter Allergies Includes: Active Allergies Substance Type Reaction Onset Date Resolved Date Statu s Codeine Allergy Nausea, Vomiting , Diarrhea / Diarrheal disorder 07/23/2010 Active Last Documented On 7 2:51PM ; [facility] Encounters Encounter Provider Location Date Check-In Time Check-Out Time Diagnosis ANNUAL DOG DAYCARE PROVIDER EXAM PIYUSH SOLIS [facility] PRECIPITATOR 09/13/19 18 3:00PM 3:21PM Screening Malig. Neoplasm Rectum,Normal Female Exam Insurance Includes: Active Insurance Policies Plan Name Member ID Group # Subscriber Relationship Effect fritz Dates 1 - [facility] [id number] FRANCY ROBERTSON Clinical Notes Includes: Clinical Notes from this encounter No Clinical Notes Recorded
--- OUTSIDE RECORDS SUMMARY | 2024-09-25 12:28 | XMS_ITS ---
Care Plan - [facility] Created on: September 25, 2024 MARCELO MARCO Mcpherson : 1965 Sex: Female Author Organization [facility] Address [address] [place] [address] Phone Care Team Providers Care Self Contained Behavior Unit Teacher Name Role Phone NIMO QUAN, EZEKIEL Delgadillo Primary Care Provider [phone] DIOGO QUAN, GAGAN C Unavailable [phone]
--- OUTSIDE RECORDS SUMMARY | 2024-09-25 12:28 | XMS_ITS | Referral Summary ---
Author Organization [facility] [address] [place] [phone] Care Team Providers Care Automotive Refinish Technician Name Role Phone Les Garber MD Primary Care Provider Encounters Date Type Department Care Team Description 07/26/2024 Telephone [facility] Specialists of [address] [address] Dominique Melendez MD Med Management (Methimazole) 07/24/2024 2:00 PM ORE BRIDGE OPERATOR Office Visit [facility] Diabetes and Endocrinology [address] [place] [phone] Dominique Melendez MD Graves' disease (Primary Dx) 07/19/2024 Telephone [facility] Special[facility] of [address] [address] Dominique Melendez MD from Last 3 Months Allergies No known active allergies Medications lansoprazole (PREVACID) 30 mg capsule Take 1 capsule (30 mg total) by mouth daily 3 Active aspirin 81 mg enteric coated tablet Take 1 tablet (81 mg total) by mouth daily Active methIMAzole (TAPAZOLE) 5 mg tabletIndicatio ns:Graves' disease Take 0.5 tablets (2.5 mg total) by mouth 4 (four) times a week 24 tablet 1 5 03/08/20 25 Active methIMAzole (TAPAZOLE) 5 mg tabletIndicatio ns:Graves' disease Take 0.5 tablets (2.5 mg total) by mouth 4 (four) times a week 24 tablet 1 4 09/07/19 25 Discontinu ed(Reorder ) Active Problems Problem Noted Date Diagnosed Date Left ear pain 03/17/2023 Assessment & Plan (03/17/2023 9:10 AM CDT): I do not find any evidence of an ear infection or inflammation. I talked with the patient about possible reasons for ear pain that could be coming from another source. There is some potential for TMJ disorder to cause this. Also some potential for ear pain due to cervical strain or shoulder problems. Her hearing test was essentially normal. There is no evidence of fluid. I think that TMJ disorders probably causing this because she does feel like she has some subluxation of her temporomandibular joint. I suggested that she consider seeing her dentist if the symptoms continue. She can always call me for an otology referral if she wants to pursue that. She is thinking about that. I did talk with her about doing a CT scan of the neck or temporal bone but feel like the yield is likely to be pretty low. She understands. Chronic eczematous otitis externa of left ear Assessment & Plan (03/17/2023 9:09 AM CDT): Going to have her try Derm otic to the left ear which will probably help with the itching. I do not really find a whole lot more going on. Under the microscope the tympanic membrane looked normal. Possibly a very thin film overlying it. We talked about that. I do not feel there is anything more that can be done. Graves' disease 02/18/2023 Assessment & Plan (07/25/2024 10:47 AM ORE BRIDGE OPERATOR): chronic, progressively improving reviewed and discussed patient's recent lab results Thyroid function tests are normal Thyroid antibodies are improving still the TSH receptor is slightly positive Plan to continue current dose of methimazole with 2.5 mg oral 4 times weekly and repeat thyroid function test every 3 months Follow-up in 6 months Assessment & Plan (01/18/2024 10:34 AM CDT): Chronic, progressively improving Decrease methimazole to 5 mg oral 4 days a week ( Wednesday, Wednesday, Wednesday, Wednesday ) In repeat thyroid function test include thyroid antibodies in 2 months Follow-up in 6 months Assessment & Plan (06/21/2023 9:06 AM ORE BRIDGE OPERATOR): Chronic, uncontrolled, improving, recent TSH 8, iatrogenic hypothyroidism Plan to decrease on methimazole to 5 mg oral 5 days a week and 10 mg on Wednesday and Wednesday Advised to recheck thyroid function test every 2 months Follow-up in 6 months Assessment & Plan (02/18/2023 10:05 AM CDT): Chronic, uncontrolled, slowly improving. But still not at goal Reviewed recent thyroid function test TSH still suppressed, free T4 normalized Continue taking atenolol 25 mg oral daily Continue methimazole 20 mg oral daily Advised patient to repeat thyroid function test in 4-5 weeks In further plans based on it Hyperthyroidism 12/21/2022 Assessment & Plan (12/21/2022 6:41 PM CDT): Reviewed pt recent thyroid labs Thyrotoxicosis DD: thyroiditis vs true hyperthyroidism ( Grave's disease vs toxic goiter ) Plan to repeat TFT , also include thyroid antibody levels If TSH remain suppressed Plan to obtain NM thyroid uptake and scan To differentiate above Start pt on non selective beta treasure - Atenolol 25 mg oral daily for symptomatic management Definitive treatment will depend on NM thyroid uptake and scan results Addendum : Repeat TFT - suppressed TSH, elevated Free T4 and Free T3 levels , elevated TSI and TSH receptor levels NM thyroid uptake and scan showed diffuse increased uptake Consistent with Grave's disease Discussed about Rx options - anti thyroid meds VS I131 VILLEGAS vs surgery Started pt on Methimazole 20 mg oral daily Repeat TFT in 4 weeks Multinodular goiter 12/21/2022 Assessment & Plan (06/21/2023 9:06 AM ORE BRIDGE OPERATOR): No compressive symptoms Plan to repeat thyroid ultrasound in 6 months Assessment & Plan (02/18/2023 10:05 AM CDT): No compressive symptoms Plan to repeat thyroid ultrasound in next few months follow-up on thyroid nodule Assessment & Plan (12/21/2022 6:43 PM CDT): Reviewed pt recent thyroid ultrasound findings Will obtain NM thyroid uptake and scan to rule out hot nodules If cold nodules than plan to repeat thyroid ultrasound in 6 months to follow up on nodules No compressive symptoms Elevated liver enzymes 12/21/2022 Assessment & Plan (06/21/2023 9:10 AM ORE BRIDGE OPERATOR): Liver enzymes back to normal range Assessment & Plan (02/18/2023 10:06 AM CDT): Slightly elevated liver function test probably due to underlying uncontrolled hyperthyroidism Slowly improving Continue to monitor Assessment & Plan (12/21/2022 6:46 PM CDT): Noted elevated transaminases levels - suspect due to underlying uncontrolled hyperthyroidism Will continue to monitor closely Notalgia 11/02/2012 Social History Tobacco Use Types Packs/Day Years Used Date Smoking Tobacco: Former Cigarettes Passive Smoke Exposure: Never Smokeless Tobacco: Never Tobacco Cessation:Counseling Given: Not Answered AUDIT-C Answer Date Recorded Q1: How often do you have a drink containing alc ohol? Never 12/16/2022 Average Number of Drinks Not on file 023 Q3: How often do you have si x or more drinks on one occasion? Never 12/16/2022 PHQ-2 Answer Date Recorded PHQ-2 Total Score (If total score is 3 or more points, staff should administer the PHQ-9) 0 01/18/2024 Comments Unknown Sex and Gender Information Value Date Recorded Sex Assigned at Not on file Legal Sex Female 1:06 AM ORE BRIDGE OPERATOR Gender Identity Female 12/11/2022 3:40 PM CDT Sexual Orientation Not on file Last Filed Vital Signs Vital Sign Reading Time Taken Comments Blood Pressure 122/80 07/24/2024 1:51 PM ORE BRIDGE OPERATOR Pulse 69 07/24/2024 1:51 PM ORE BRIDGE OPERATOR Temperature - - Respiratory Rate 16 07/24/2024 1:51 PM ORE BRIDGE OPERATOR Oxygen Saturation - - Inhaled Oxygen Concentration - - Weight 74.8 kg (165 lb) 07/24/2024 1:51 PM ORE BRIDGE OPERATOR Height 170.2 cm (5' 7) 07/24/2024 1:51 PM ORE BRIDGE OPERATOR Body Mass Index 25.84 07/24/2024 1:51 PM ORE BRIDGE OPERATOR Plan of Treatment Not on file Procedures Procedure Name Priority Date/Time Associated Diagnosis Comments TSH RECEPTOR ANTIBODY Routine 07/05/2024 7:13 AM ORE BRIDGE OPERATOR Graves' disease THYROID STIMULATING IMMUNOGLOBULIN Routine 07/05/2024 7:13 AM ORE BRIDGE OPERATOR Graves' disease T4, FREE Routine 07/05/2024 7:13 AM ORE BRIDGE OPERATOR Graves' disease T3, FREE Routine 07/05/2024 7:13 AM ORE BRIDGE OPERATOR Graves' disease TSH Routine 07/05/2024 7:13 AM ORE BRIDGE OPERATOR Graves' disease from Last 3 Months Results * (ABNORMAL) TSH receptor antibody (07/05/2024 7:13 AM ORE BRIDGE OPERATOR) Blood 07/05/2024 7:13 AM ORE BRIDGE OPERATOR Impressions EXTERNAL LAB - 07/05/2024 7:17 AM ORE BRIDGE OPERATOR Result: 2.02 (< or =2.00) us Dominique Souza MD LAB BLOOD ORDERABLE S Edited Result - Final Performing Organization Address [facility] Co de Phone Number EXTERNAL LAB * Thyroid stimulating immunoglobulin (07/05/2024 7:13 AM ORE BRIDGE OPERATOR) Blood 07/05/2024 7:13 AM ORE BRIDGE OPERATOR Impressions EXTERNAL LAB - 07/05/2024 7:17 AM ORE BRIDGE OPERATOR Result: <89 (<140% baseline) us Dominique Souza MD LAB BLOOD ORDERABLE S Final Result Performing Organization Address [facility]/ZIP Co de Phone Number EXTERNAL LAB * T3, free (07/05/2024 7:13 AM ORE BRIDGE OPERATOR) Blood 07/05/2024 7:13 AM ORE BRIDGE OPERATOR Impressions EXTERNAL LAB - 07/05/2024 7:17 AM ORE BRIDGE OPERATOR Result: 3.1 (2.3-4.2) us Dominique Souza MD LAB BLOOD ORDERABLE S Final Result Performing Organization Address [facility] de Phone Number EXTERNAL LAB * TSH (07/05/2024 7:13 AM ORE BRIDGE OPERATOR) Scribed TSH 3.49 0.47 - 4.68 mcU/mL EXTERNAL LAB Blood 07/05/2024 7:13 AM ORE BRIDGE OPERATOR Dominique Souza MD LAB BLOOD ORDERABLE S Final Result Performing Organization Address [facility] de Phone Number EXTERNAL LAB * T4, free (07/05/2024 7:13 AM ORE BRIDGE OPERATOR) SCRIBED T4, Free 1.05 0.78 - 2.19 mcg/dL EXTERNAL LAB Blood 07/05/2024 7:13 AM ORE BRIDGE OPERATOR Dominique Souza MD LAB BLOOD ORDERABLE S Final Result Performing Organization Address [facility] Co de Phone Number EXTERNAL LAB from Last 3 Months Insurance Virtual Command OPEN ACCESS Virtual Command OPEN ACCESS Care Teams Automotive Refinish Technician Relationship Specialty Start Date End Date Les Garber MD [address] [place] [address] PCP - General Internal Medicine 12/22/22
--- OUTSIDE RECORDS SUMMARY | 2024-09-25 12:28 | XMS_ITS | Clinical Summary ---
Author Organization [facility] Address [address] [place] [address] Phone Care Team Providers Care Supervisor Locomotive Name Role Phone NIMO QUAN, EZEKIEL Delgadillo Primary Care Provider [phone] DIOGO QUAN, GAGAN C Unavailable [phone] Reason for Visit and Chief Complaint gynecologic annual exam - The Chief Complaint is: Annual - endometrial ablation scheduled with Dr. Arboleda is scheduled 09-28-16 . See her notes! Problems Includes: Problems addressed during this encounter and other active Problems All Visits Onset Date Resolved Date Provider Condition S tatus Ent Disorders 11/03/2018 PIYUSH SOLIS WHNP-BC Active Last Documented On 11/03/2018 8:58AM ; [facility] Note: blood clot right eye Gynecologic Services Thermal Endometrial Ablation 09/13/2017 PIYUSH SOLIS WHNP-BC Active Last Documented On 09/13/2017 3:12PM ; [facility] Note: - Dr. 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 PIYUSH SOLIS WHNP-BC Active Last Documented On 07/20/2016 3:00PM ; [facility] Note: + Fibroid Family History 09/05/2014 PIYUSH SOLIS WHNP-BC Active Last Documented On 09/05/2014 2:24PM ; [facility] Note: sister of lung cancer, mother h/o breast cancer Endometriosis 09/28/2012 PIYUSH SOLIS WHNP-BC Active Last Documented On 3 3:59PM ; [facility] Plan of Treatment - Follow-up visit 1 year or as needed - Last Documented On 09/11/2016 2:31PM ; [facility] - Clinical summary provided to patient - Last Documented On 09/11/2016 2:31PM ; [facility] Instructions to patient Instructions for patient : B reast Self Exam discussed Last Documented On 7 2:18PM ; [facility] Colonoscopy Handout given to patient Last Documented On 7 2:19PM ; [facility] Education and Decision Aids were provided during visit for: Patient Education: Daily ilir cium and vitamin D Last Documented On 7 2:18PM ; [facility] Patient Education: weight be aring exercise Last Documented On 7 2:18PM ; [facility] Assessments Includes: Assessments from this encounter Findings - NORMAL FEMALE EXAM - Last Documented On 09/11/2016 2:31PM ; [facility] - Screening Malig. Neoplasm Rectum - Last Documented On 09/11/2016 2:31PM ; [facility] Instructions Includes: Instructions from this encounter Instructions to patient Instructions for patient : B reast Self Exam discussed Last Documented On 7 2:18PM ; [facility] Colonoscopy Handout given to patient Last Documented On 7 2:19PM ; [facility] Education and Decision Aids were provided during visit for: Patient Education: Daily ilir cium and vitamin D Last Documented On 7 2:18PM ; [facility] Patient Education: weight be aring exercise Last Documented On 7 2:18PM ; [facility] Medical Equipment - Implanted Devices Includes: Current Devices No Medical Equipment Recorded Medications Includes: Medications discussed during this encounter and other current Medications Current Medications (continue as prescribed) Adult Aspirin Regimen 81MG Oral Tablet Delayed Release 11/03/2018 Provider: Diagnosis: Last Documented On 11/03/2018 8:56AM By EDMUND MURRAY ; [facility] CO-Q [address] [place]-3 Fish Oil OR CAPS 09/05/2014 Provider : Diagnosis: Last Documented On 09/05/2014 2:22PM By EDMUND MURRAY ; [facility] Bee Pollen 500 MG OR CHEW 09/05/2014 Provider: Diagnosis: Last Documented On 09/05/2014 2:22PM By EDMUND MURRAY ; [facility] B Complex OR CAPS 09/05/2014 Provider: Diagnosis: Last Documented On 09/05/2014 2:22PM By EDMUND MURRAY ; [facility] Folic Acid 400 MCG OR TABS 09/05/2014 Provider: Diagnosis: Last Documented On 09/05/2014 2:22PM By EDMUND MURRAY ; [facility] Womens Multivitamin Plus OR TABS 08/29/2012 Provider : Diagnosis: Last Documented On 08/29/2012 9:54AM By RADHAMES MURRAY ; [facility] Past Medications on file Rulo 5-325 MG Tablet 09/04/2016 - 09/07/2016 Provider : EMELINA ARBOLEDA MD Diagnosis: 1-2 every 4-6 hours as needed Last Documented On 09/04/2016 1:56PM By EMELINA ARBOLEDA MD ; [facility] Flagyl 500 MG Tablet 07/20/2016 - 07/27/2016 Provider: PIYUSH ALMANZAR Diagnosis: Acute vaginitis One tablet twice a day Last Documented On 6 3:14PM By PIYUSH NICK ; [facility] Diflucan 150 MG OR TABS 09/01/2013 - 10/01/2013 Provider: PIYUSH NICK Diagnosis: CANDIDAL VULVOVA GINITIS one dose po x 1 and rpt. in 3 days Last Documented On 4 1:23PM By PIYUSH NICK ; [facility] Medications Administered Includes: Administered Medications from this encounter No Administered Medications Recorded Vital Signs Includes: Vital Signs from this encounter Vital Name 09/11/2016 02:18P 09/11/2016 02: 17P Blood Pressure Sitting L 110/64 BP Cuff Size Regular Height (in) 67 67 Weight (lb) 159 Body Mass Index (kg/m2) 24.9 Body Surface Area (m2) 1.8 Last Documented: On 09/11/2016 2:20PM ; [facility] On 09/11/2016 2:17PM ; [facility] Results Includes: Results discussed during this encounter No Results Recorded For Specified Dates History of Present Illness Includes: History of Present Illness from this encounter KEMAR ROBERTSON is a 51 year old female. - Medication list reviewed - PRIMARY CARE PROVIDER : Dr Garber Social History Description Last Updated Age of 1st intercourse was was 18 2017 Last Documented On 7 2:17PM ; [facility] Alcohol use: 2 drinks or less per day so cially 09/13/2017 Last Documented On 7 2:17PM ; [facility] Alcohol use socially 09/11/2016 Last Documented On 7 2:31PM ; [facility] In monogamous relationship 09/11/2016 Last Documented On 7 2:31PM ; [facility] Non-smoker 09/11/2016 Last Documented On 7 2:31PM ; [facility] Not using drugs 09/11/2016 Last Documented On 7 2:31PM ; [facility] Sexually active with 1 partners in the l ast year 09/11/2016 Last Documented On 7 2:31PM ; [facility] Social history unchanged 09/11/2016 Last Documented On 7 2:31PM ; [facility] Smoking status : Former smoker Last Documented On 7 2:31PM ; [facility] Procedures and Surgical History Includes: Procedures from this encounter Procedures Code Diagnosis Performing Provider Service L ocation Service Date low fat diet Last Documented On 7 2:19PM ; [facility] fecal occult blood test was negative 85250 Last Documented On 7 2:18PM ; [facility] normal history of Pap smear of cervix Last Documented On 7 2:22PM ; [facility] Cervical Pap Smear performed [id number] Last Documented On 7 2:19PM ; [facility] Surgical History Last Updated History of tubal ligation 10/12/2016 Last Documented On 7 2:17PM ; [facility] History of cholecystectomy 09/01/2013 Last Documented On 7 2:17PM ; [facility] Surgical / procedural history BACK SURGE RY 83 09/01/2013 Last Documented On 7 2:17PM ; [facility] Tonsillectomy 09/01/2013 Last Documented On 7 2:17PM ; [facility] Medical History Includes: Medical History addressed during this encounter Description Last Updated 2 09/13/2017 Last Documented On 7 2:17PM ; [facility] Para 2 09/13/2017 Last Documented On 7 2:17PM ; [facility] Partner with vasectomy 09/13/2017 Last Documented On 7 2:17PM ; [facility] LMP: 08/26/2016 09/11/2016 Last Documented On 7 2:31PM ; [facility] Vaginal delivery 09/11/2016 Last Documented On 7 2:31PM ; [facility] No recent change in medical history 08/17 Last Documented On 7 2:31PM ; [facility] History of complete colonoscopy 2015 [facility]. repeat in 10 years 09/11/2016 Last Documented On 7 2:31PM ; [facility] Sexually active 09/11/2016 Last Documented On 7 2:31PM ; [facility] History of Pap smear done 09/01/201308/17 Last Documented On 7 2:31PM ; [facility] History of screening mammogram was perfo rmed 09/09/2015 09/11/2016 Last Documented On 7 2:31PM ; [facility] Result: normal 09/11/2016 Last Documented On 7 2:31PM ; [facility] Result: normal 09/11/2016 Last Documented On 7 2:31PM ; [facility] Family History Includes: Family History addressed during this encounter Description Last Updated Family history unchanged 09/11/2016 Last Documented On 7 2:31PM ; [facility] Maternal history of hypertension parents 09/11/2016 Last Documented On 7 2:31PM ; [facility] Maternal history of malignan t female breast neoplasm mother at age 63-mastectomy and chemo 09/11/2016 Last Documented On 7 2:31PM ; [facility] Paternal history of family history of he art disease DAD 09/11/2016 Last Documented On 7 2:31PM ; [facility] Paternal history of pure hypercholestero lemia father 09/11/2016 Last Documented On 7 2:31PM ; [facility] sister had lung ca 09/09/2015 Last Documented On 7 2:17PM ; [facility] Spouse name: Abner 09/01/2013 Last Documented On 7 2:17PM ; [facility] First child named Nicole 1987 1 Last Documented On 7 2:17PM ; [facility] Second child named Joesph 199101/29/20 11 Last Documented On 7 2:17PM ; [facility] Review of Systems Includes: Review of Systems from this encounter Breasts: No breast lump. Gastrointestinal: No pelvic pain. Genitourinary: No vaginal discharge. Mental Status Includes: Mental [...] Active Last Documented On 7 2:51PM ; [facility] Encounters Encounter Provider Location Date Check-In Time Check-Out Time Diagnosis PIE CUTTER EXAM PIYUSH SOLIS [facility] VBA PROGRAMMER 7 2:13PM 2:33PM Screening Malig. Neoplasm Rectum,Normal Female Exam Insurance Includes: Active Insurance Policies Plan Name Member ID Group # Subscriber Relationship Effect fritz Dates 1 - [facility] [id number] ABNER ROBERTSON Clinical Notes Includes: Clinical Notes from this encounter No Clinical Notes Recorded
--- OUTSIDE RECORDS SUMMARY | 2024-09-25 12:28 | XMS_ITS | Clinical Summary ---
Author Organization [facility] Address [address] [place] [address] Phone Care Team Providers Care Measurement And Verification Engineer Name Role Phone NIMO QUAN, EZEKIEL Delgadillo Primary Care Provider [phone] DIOGO QUAN, GAGAN C Unavailable [phone] Reason for Visit and Chief Complaint visit for: postsurgical exam - The Chief Complaint is: Post Op visit- 2 weeks. Novasure 09/28/16 Problems Includes: Problems addressed during this encounter and other active Problems All Visits Onset Date Resolved Date Provider Condition S tatus Ent Disorders 11/03/2018 PIYUSH SOLIS [facility]NP-BC Active Last Documented On 11/03/2018 8:58AM ; [facility] Note: blood clot right eye Gynecologic Services Thermal Endometrial Ablation 09/13/2017 PIYUSH SOLIS WHNP-BC Active Last Documented On 09/13/2017 3:12PM ; [facility] Note: - Dr. 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 PIYUSH SOLIS WHNP-BC Active Last Documented On 07/20/2016 3:00PM ; [facility] Note: + Fibroid Family History 09/05/2014 PIYUSH SOLIS WHNP-BC Active Last Documented On 09/05/2014 2:24PM ; [facility] Note: sister of lung cancer, mother h/o breast cancer Endometriosis 09/28/2012 PIYUSH SOLIS WHNP-BC Active Last Documented On 3 3:59PM ; [facility] Plan of Treatment No Plan of Treatment Recorded Assessments Includes: Assessments from this encounter Findings - POST OP VISIT - Last Documented On 10/12/2016 3:27PM ; [facility] Medical Equipment - Implanted Devices Includes: Current Devices No Medical Equipment Recorded Medications Includes: Medications discussed during this encounter and other current Medications Discontinued / Stopped on this date on 09/28/2016 Valium 10MG Oral Tablet Provider: Diagnosis: Last Documented On 10/12/2016 2:51PM By SPIKE GRACE LPN ; [facility] Ibuprofen 600MG Oral Tablet Provider: Diagnosis: Last Documented On 10/12/2016 2:51PM By SPIKE GRACE LPN ; [facility] Doxycycline Hyclate 100MG Oral Capsule, conventional Provider: Diagnosis: Last Documented On 10/12/2016 2:50PM By SPIKE GRACE LPN ; [facility] vicoden 5/500mg Oral Tablet Provider: Diagnosis: Last Documented On 10/12/2016 2:51PM By SPIKE GRACE LPN ; [facility] Current Medications (continue as prescribed) Adult Aspirin Regimen 81MG Oral Tablet Delayed Release 11/03/2018 Provider: Diagnosis: Last Documented On 11/03/2018 8:56AM By EDMUND MURRAY ; [facility] CO-Q 10 [place]-3 Fish Oil OR CAPS 09/05/2014 Provider : Diagnosis: Last Documented On 09/05/2014 2:22PM By EDMUND MURRAY ; [facility] Bee Pollen 500 MG OR CHEW 09/05/2014 Provider: Diagnosis: Last Documented On 09/05/2014 2:22PM By EDMUND MURRAY ; [facility] B Complex OR CAPS 09/05/2014 Provider: Diagnosis: Last Documented On 09/05/2014 2:22PM By EDMUND MURRAY ; [facility] Folic Acid 400 MCG OR TABS 09/05/2014 Provider: Diagnosis: Last Documented On 09/05/2014 2:22PM By EDMUND MURRAY ; [facility] Womens Multivitamin Plus OR TABS 08/29/2012 Provider : Diagnosis: Last Documented On 08/29/2012 9:54AM By RADHAMES MURRAY ; [facility] Past Medications on file [place] 5-325 MG Tablet 09/04/2016 - 09/07/2016 Provider : EMELINA ARBOLEDA MD Diagnosis: 1-2 every 4-6 hours as needed Last Documented On 09/04/2016 1:56PM By EMELINA ARBOLEDA MD ; [facility] Flagyl 500 MG Tablet 07/20/2016 - 07/27/2016 Provider: PIYUSH NICK Diagnosis: Acute vaginitis One tablet twice a day Last Documented On 6 3:14PM By PIYUSH NICK ; [facility] Diflucan 150 MG OR TABS 09/01/2013 - 10/01/2013 Provider: PIYUSH NICK Diagnosis: CANDIDAL VULVOVA GINITIS one dose po x 1 and rpt. in 3 days Last Documented On 4 1:23PM By PIYUSH NICK ; [facility] Medications Administered Includes: Administered Medications from this encounter No Administered Medications Recorded Vital Signs Includes: Vital Signs from this encounter Vital Name 10/12/2016 02:44P 10/12/2016 02: 41P Blood Pressure Sitting (mmHg) 122/78 Height (in) 67 67 Weight (lb) 161.4 Body Mass Index (kg/m2) 25.3 Body Surface Area (m2) 1.8 Last Documented: On 10/12/2016 2:49PM ; [facility] On 10/12/2016 2:41PM ; [facility] Results Includes: Results discussed during this encounter No Results Recorded For Specified Dates History of Present Illness Includes: History of Present Illness from this encounter KEMAR ROBERTSON is a 51 year old female. - Patient is no longer taking pain medication - Feeling fine - Normal appetite - No nausea - No vomiting - No bowel/bladder changes - Vaginal discharge pink-tinged watery, no foul smell or itch or burn - No unexplained vaginal bleeding Social History Description Last Updated Alcohol use: 2 drinks or less per day oc c 10/12/2016 Last Documented On 7 3:27PM ; [facility] Sexually active 10/12/2016 Last Documented On 7 3:27PM ; [facility] Non-smoker 10/12/2016 Last Documented On 7 3:27PM ; [facility] Smoking Status Unknown Procedures and Surgical History Includes: Procedures from this encounter Procedures Code Diagnosis Performing Provider Service L ocation Service Date follow-up visit for annual exam Last Documented On 7 3:20PM ; [facility] Clinical summary provided to patient Last Documented On 7 3:19PM ; [facility] Surgical History Last Updated History of tubal ligation 1994 7 Last Documented On 7 3:27PM ; [facility] Medical History Includes: Medical History addressed during this encounter Description Last Updated Contraception: Vasectomy, tubal 10/12/19 Last Documented On 7 3:27PM ; [facility] 2 10/12/2016 Last Documented On 7 3:27PM ; [facility] Last mammogram date: 09/11/2016 7 Last Documented On 7 3:27PM ; [facility] Last pap smear date 09/11/2016 10/12/2016 Last Documented On 7 3:27PM ; [facility] LMP: 09/18/2016 10/12/2016 Last Documented On 7 3:27PM ; [facility] Para 2 10/12/2016 Last Documented On 7 3:27PM ; [facility] Family History Includes: Family History addressed during this encounter Description Last Updated Maternal history of hypertension parents 11/03/2018 Last Documented On 7 2:40PM ; [facility] Paternal history of family history of he art disease DAD 11/03/2018 Last Documented On 7 2:40PM ; [facility] Paternal history of pure hypercholestero lemia father 11/03/2018 Last Documented On 7 2:40PM ; [facility] Family history of malignant female breast neoplasm mother at age 63-mastectomy and chemo 09/13/2017 Last Documented On 7 2:40PM ; [facility] sister had lung ca 09/09/2015 Last Documented On 7 2:40PM ; [facility] Spouse name: Abner 09/01/2013 Last Documented On 7 2:40PM ; [facility] Family history of hypercholesterolemia f ather 09/01/2013 Last Documented On 7 2:40PM ; [facility] Family history of hypertension parents 0 09/01/2013 Last Documented On 7 2:40PM ; [facility] First child named Nicole 1987 1 Last Documented On 7 2:40PM ; [facility] Second child named Joesph 199101/29/20 11 Last Documented On 7 2:40PM ; [facility] Heart disease DAD 09/04/2010 Last Documented On 7 2:40PM ; [facility] Family history of uterine cancer 010 Last Documented On 7 2:40PM ; [facility] Review of Systems Includes: Review of Systems from this encounter No Review of Systems Recorded Mental Status Includes: Mental Status from this encounter No Mental Status Recorded Functional Status Includes: Functional Status from this encounter No Functional Status Recorded Physical Exam Includes: Physical Exam from this encounter Allergies Includes: Active Allergies Substance Type Reaction Onset Date Resolved Date Statu s Codeine Allergy Nausea, Vomiting , Diarrhea / Diarrheal disorder 07/23/2010 Active Last Documented On 7 2:51PM ; [facility] Encounters Encounter Provider Location Date Check-In Time Check-Out Time Diagnosis POST OP VISIT EMELINA ARBOLEDA MD [facility] MANAGER FIELD INVESTIGATIONS 10/12/19 17 2:39PM 3:28PM Post Op Visit Insurance Includes: Active Insurance Policies Plan Name Member ID Group # Subscriber Relationship Effect fritz Dates 1 - [facility] [id number] ABNER ROBERTSON Clinical Notes Includes: Clinical Notes from this encounter No Clinical Notes Recorded
--- OUTSIDE RECORDS SUMMARY | 2024-09-25 12:28 | XMS_ITS | Clinical Summary ---
Author Organization [facility] Address [address] [place] [address] Phone Care Team Providers Care Graphic Design Assistant Name Role Phone NIMO QUAN, EZEKIEL Delgadillo Primary Care Provider [phone] DIOGO QUAN, GAGAN C Unavailable [phone] Reason for Visit and Chief Complaint The Chief Complaint is: Novasure, The Chief Complaint is: In office Novasure. Toradol injection given IM Right Glut, pt tolerated well, no adverse reaction, Lot#[id number] Problems Includes: Problems addressed during this encounter and other active Problems All Visits Onset Date Resolved Date Provider Condition S tatus Ent Disorders 11/03/2018 PIYUSH SOLIS WHNP-BC Active Last Documented On 11/03/2018 8:58AM ; [facility] Note: blood clot right eye Gynecologic Services Thermal Endometrial Ablation 09/13/2017 PIYUSH SOLIS WHNP-BC Active Last Documented On 09/13/2017 3:12PM ; [facility] Note: - Dr. 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 PIYUSH SOLIS WHNP-BC Active Last Documented On 07/20/2016 3:00PM ; [facility] Note: + Fibroid Family History 09/05/2014 PIYUSH SOLIS WHNP-BC Active Last Documented On 09/05/2014 2:24PM ; [facility] Note: sister of lung cancer, mother h/o breast cancer Endometriosis 09/28/2012 PIYUSH SOLIS WHNP-BC Active Last Documented On 3 3:59PM ; [facility] Plan of Treatment Follow up in 2 weeks for post-operative visit. - Last Documented On 09/28/2016 3:59PM ; [facility] Pending Tests Order Diagnosis Results Due Ordering P rovider Injections Theraputic Injection Excessive a nd frequent menstruation with regular cycle 09/28/16 EMELINA ARBOLEDA MD Last Documented On 7 3:59PM ; [facility] Injections Toradol Excessive and fr equent menstruation with regular cycle 09/28/16 EMELINA ARBOLEDA MD Last Documented On 7 3:59PM ; [facility] In office procedures - OB Novasure Excessive and frequent menstruation with regular cycle 10/12/16 EMELINA ARBOLEDA MD Last Documented On 7 3:59PM ; [facility] Assessments Includes: Assessments from this encounter Findings - Menorrhagia - Last Documented On 09/28/2016 3:59PM ; [facility] Medical Equipment - Implanted Devices Includes: Current Devices No Medical Equipment Recorded Medications Includes: Medications discussed during this encounter and other current Medications Current Medications (continue as prescribed) Adult Aspirin Regimen 81MG Oral Tablet Delayed Release 11/03/2018 Provider: Diagnosis: Last Documented On 11/03/2018 8:56AM By EDMUND MURRAY ; [facility] CO-Q 10 [place]-3 Fish Oil OR CAPS 09/05/2014 Provider : Diagnosis: Last Documented On 09/05/2014 2:22PM By EDMUND MURRAY ; [facility] Bee Pollen 500 MG OR CHEW 09/05/2014 Provider: Diagnosis: Last Documented On 09/05/2014 2:22PM By EDMUND MURRAY ; [facility] B Complex OR CAPS 09/05/2014 Provider: Diagnosis: Last Documented On 09/05/2014 2:22PM By EDMUND MURRAY ; [facility] Folic Acid 400 MCG OR TABS 09/05/2014 Provider: Diagnosis: Last Documented On 09/05/2014 2:22PM By EDMUND MURRAY ; [facility] Womens Multivitamin Plus OR TABS 08/29/2012 Provider : Diagnosis: Last Documented On 08/29/2012 9:54AM By RADHAMES MURRAY ; [facility] Past Medications on file [place] 5-325 MG Tablet 09/04/2016 - 09/07/2016 Provider : EMELINA ARBOLEDA MD Diagnosis: 1-2 every 4-6 hours as needed Last Documented On 09/04/2016 1:56PM By EMELINA ARBOLEDA MD ; [facility] Flagyl 500 MG Tablet 07/20/2016 - 07/27/2016 Provider: PIYUSH NICK Diagnosis: Acute vaginitis One tablet twice a day Last Documented On 6 3:14PM By PIYUSH NICK ; [facility] Diflucan 150 MG OR TABS 09/01/2013 - 10/01/2013 Provider: PIYUSH NICK Diagnosis: CANDIDAL VULVOVA GINITIS one dose po x 1 and rpt. in 3 days Last Documented On 4 1:23PM By PIYUSH NICK ; [facility] Medications Administered Includes: Administered Medications from this encounter Medications Administered Diagnosis Date Pro vider Ketorolac Tromethamine 60 MG/2ML IM SOLN 09/28/2016 EMELINA ARBOLEDA MD Last Documented On 7 1:08PM By DEVIN MURRAY ; [facility] Vital Signs Includes: Vital Signs from this encounter Vital Name 09/28/2016 02:20P 09/28/2016 12:35P 09/28 12:34P Blood Pressure Sitting (mmHg) 130/70 130/78 Pulse Rate-Sitting (bpm) 80 72 Height (in) 67 67 Weight (lb) 158.8 Body Mass Index (kg/m2) 24.9 Body Surface Area (m2) 1.8 Last Documented: On 09/28/2016 2:20PM ; [facility] On 09/28/2016 12:40PM ; [facility] On 09/28/2016 12:34PM ; [facility] Results Includes: Results discussed during this encounter No Results Recorded For Specified Dates History of Present Illness Includes: History of Present Illness from this encounter No History of Present Illness Recorded Social History Description Last Updated Alcohol use: 2 drinks or less per day oc c 09/28/2016 Last Documented On 7 3:59PM ; [facility] Non-smoker 09/28/2016 Last Documented On 7 3:59PM ; [facility] Sexually active 09/28/2016 Last Documented On 7 3:59PM ; [facility] Smoking Status Unknown Procedures and Surgical History Includes: Procedures from this encounter Procedures Code Diagnosis Performing Provider Service L ocation Service Date Clinical summary provided to patient Last Documented On 7 1:34PM ; [facility] Surgical History Last Updated History of tubal ligation 1994 7 Last Documented On 7 3:59PM ; [facility] Medical History Includes: Medical History addressed during this encounter Description Last Updated Last mammogram date: 09/11/2016 7 Last Documented On 7 3:59PM ; [facility] LMP: 09/18/2016 09/28/2016 Last Documented On 7 3:59PM ; [facility] Contraception: vasecetomy, tubal 017 Last Documented On 7 3:59PM ; [facility] 2 09/28/2016 Last Documented On 7 3:59PM ; [facility] Last pap smear date 09/11/2016 09/28/2016 Last Documented On 7 3:59PM ; [facility] Para 2 09/28/2016 Last Documented On 7 3:59PM ; [facility] Family History Includes: Family History addressed during this encounter Description Last Updated Maternal history of hypertension parents 11/03/2018 Last Documented On 7 12:33PM ; [facility] Paternal history of family history of he art disease DAD 11/03/2018 Last Documented On 7 12:33PM ; [facility] Paternal history of pure hypercholestero lemia father 11/03/2018 Last Documented On 7 12:33PM ; [facility] Family history of malignant female breast neoplasm mother at age 63-mastectomy and chemo 09/13/2017 Last Documented On 7 12:33PM ; [facility] sister had lung ca 09/09/2015 Last Documented On 7 12:33PM ; [facility] Spouse name: Abner 09/01/2013 Last Documented On 7 12:33PM ; [facility] Family history of hypercholesterolemia f ather 09/01/2013 Last Documented On 7 12:33PM ; [facility] Family history of hypertension parents 0 09/01/2013 Last Documented On 7 12:33PM ; [facility] First child named Nicole 1987 1 Last Documented On 7 12:33PM ; [facility] Second child named Joesph 199101/29/20 11 Last Documented On 7 12:33PM ; [facility] Heart disease DAD 09/04/2010 Last Documented On 7 12:33PM ; [facility] Family history of uterine cancer 010 Last Documented On 7 12:33PM ; [facility] Review of Systems Includes: Review of Systems [...] Active Last Documented On 7 2:51PM ; [facility] Encounters Encounter Provider Location Date Check-In Time Check-Out Time Diagnosis PROCEDURE OFFICE EMELINA ARBOLEDA MD [facility] ENTRY LEVEL MANAGER 09/28/19 17 12:30PM 2:19PM Menorrhagia Insurance Includes: Active Insurance Policies Plan Name Member ID Group # Subscriber Relationship Effect fritz Dates 1 - [facility] [id number] ABNER ROBERTSON Clinical Notes Includes: Clinical Notes from this encounter No Clinical Notes Recorded
--- OUTSIDE RECORDS SUMMARY | 2024-09-25 12:28 | XMS_ITS | Clinical Summary ---
Author Organization [facility] Address [address] [place] [address] Phone Care Team Providers Care Turbine Room Attendant Name Role Phone NIMO QUAN, EZEKIEL Delgadillo Primary Care Provider [phone] DIOGO QUAN, GAGAN C Unavailable [phone] Reason for Visit and Chief Complaint gynecologic annual exam - The Chief Complaint is: Annual Problems Includes: Problems addressed during this encounter and other active Problems Current Visit Onset Date Resolved Date Provider Conditio n Status Ent Disorders 11/03/2018 PIYUSH SOLIS WHNP-BC Active Last Documented On 11/03/2018 8:58AM ; [facility] Note: blood clot right eye Past Visits Onset Date Resolved Date Provider Condition Status Gynecologic Services Thermal Endometrial Ablation 09/13/2017 PIYUSH SOLIS WHNP-BC Active Last Documented On 09/13/2017 3:12PM ; [facility] Note: - Dr. 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 PIYUSH SOLIS WHNP-BC Active Last Documented On 07/20/2016 3:00PM ; [facility] Note: + Fibroid Family History 09/05/2014 PIYUSH SOLIS WHNP-BC Active Last Documented On 09/05/2014 2:24PM ; [facility] Note: sister of lung cancer, mother h/o breast cancer Endometriosis 09/28/2012 PIYUSH SOLIS WHNP-BC Active Last Documented On 3 3:59PM ; [facility] Plan of Treatment - Follow-up visit 1 year or as needed - Last Documented On 11/03/2018 9:07AM ; [facility] - Clinical summary provided to patient - Last Documented On 11/03/2018 9:07AM ; [facility] Per new ASCCP guidelines, pap was deferred today. This was d/w pt. and pt. is agreeable to this plan. - Last Documented On 11/03/2018 9:07AM ; [facility] Instructions to patient Instructions for patient : B reast Self Exam discussed Last Documented On 9 8:43AM ; [facility] Education and Decision Aids were provided during visit for: Patient Education: Daily ilir cium and vitamin D Last Documented On 9 8:43AM ; [facility] Patient Education: weight be aring exercise Last Documented On 9 8:43AM ; [facility] Assessments Includes: Assessments from this encounter Findings - NORMAL FEMALE EXAM - Last Documented On 11/03/2018 9:07AM ; [facility] - Screening Malig. Neoplasm Rectum - Last Documented On 11/03/2018 9:07AM ; [facility] Instructions Includes: Instructions from this encounter Instructions to patient Instructions for patient : B reast Self Exam discussed Last Documented On 9 8:43AM ; [facility] Education and Decision Aids were provided during visit for: Patient Education: Daily ilir cium and vitamin D Last Documented On 9 8:43AM ; [facility] Patient Education: weight be aring exercise Last Documented On 9 8:43AM ; [facility] Medical Equipment - Implanted Devices Includes: Current Devices No Medical Equipment Recorded Medications Includes: Medications discussed during this encounter and other current Medications Current Medications (continue as prescribed) Adult Aspirin Regimen 81MG Oral Tablet Delayed Release 11/03/2018 Provider: Diagnosis: Last Documented On 11/03/2018 8:56AM By EDMUND MURRAY ; [facility] CO-Q [address] [place]-3 Fish Oil OR CAPS 09/05/2014 Provider : Diagnosis: Last Documented On 09/05/2014 2:22PM By EDMUND MURRAY ; [facility] Bee Pollen 500 MG OR CHEW 09/05/2014 Provider: Diagnosis: Last Documented On 09/05/2014 2:22PM By EDMUND MURRAY ; [facility] B Complex OR CAPS 09/05/2014 Provider: Diagnosis: Last Documented On 09/05/2014 2:22PM By EDMUND MURRAY ; [facility] Folic Acid 400 MCG OR TABS 09/05/2014 Provider: Diagnosis: Last Documented On 09/05/2014 2:22PM By EDMUND MURRAY ; [facility] Womens Multivitamin Plus OR TABS 08/29/2012 Provider : Diagnosis: Last Documented On 08/29/2012 9:54AM By RADHAMES MURRAY ; [facility] Past Medications on file [place] 5-325 MG Tablet 09/04/2016 - 09/07/2016 Provider : EMELINA ARBOLEDA MD Diagnosis: 1-2 every 4-6 hours as needed Last Documented On 09/04/2016 1:56PM By EMELINA ARBOLEDA MD ; [facility] Flagyl 500 MG Tablet 07/20/2016 - 07/27/2016 Provider: PIYUSH NICK Diagnosis: Acute vaginitis One tablet twice a day Last Documented On 6 3:14PM By PIYUSH NICK ; [facility] Diflucan 150 MG OR TABS 09/01/2013 - 10/01/2013 Provider: PIYUSH NICK Diagnosis: CANDIDAL VULVOVA GINITIS one dose po x 1 and rpt. in 3 days Last Documented On 4 1:23PM By PIYUSH NICK ; [facility] Medications Administered Includes: Administered Medications from this encounter No Administered Medications Recorded Vital Signs Includes: Vital Signs from this encounter Vital Name 11/03/2018 08:50A Blood Pressure Sitting L 132/70 BP Cuff Size Regular Height (in) 66.5 Weight (lb) 168 Body Mass Index (kg/m2) 26.7 Body Surface Area (m2) 1.9 Last Documented: On 11/03/2018 8:53AM ; [facility] Results Includes: Results discussed during this encounter THINPREP TIS AND HPV mRNA E6/E7 [facility] [employer] Ordered by PIYUSH NICK on 08/17 Collected: 09/13/2017 Reported: 09/17/19 18 08:58 Last Documented On 8 11:34AM ; [facility] Reviewed by PIYUSH HERNDON on 09/17/2017; All test results are final unless otherwise noted. HPV mRNA E6/E7 Not Detected (Not Detected) N (Normal) Last Documented On 8 11:34AM ; [facility] Note: This test was performed using the APTIMA HPV Assay ([employer]This assay detects E6/E7 viral messenger RNA (mRNA) from 14high-risk HPV types (16,18,31,33,35,39,45,51,52,56,58,59,66,68). SOURCE: Cervix, Endocervix N (Normal) Last Documented On 8 11:34AM ; [facility] CLINICAL INFORMATION: Postmenopausal N (Normal) Last Documented On 8 11:34AM ; [facility] LMP: PM N (Normal) Last Documented On 8 11:34AM ; [facility] PREV. PAP: 2017 N (Normal) Last Documented On 8 11:34AM ; [facility] PREV. BX: NONE N (Normal) Last Documented On 8 11:34AM ; [facility] STATEMENT OF ADEQUACY: Satisfactory for evaluation. Endocervical/transformation zone component present. N (Normal) Last Documented On 8 11:34AM ; [facility] INTERPRETATION/RESULT: Negative for intraepithelial lesion or malignancy. N (Normal) Last Documented On 8 11:34AM ; [facility] COMMENT: This Pap test has been evaluated with computer assisted technology. N (Normal) Last Documented On 8 11:34AM ; [facility] SUPERVISOR LACE TEARING: SUPRIYA NUÑEZ(ASCP) CT screening location: [place] [address] [place] [address] N (Normal) Last Documented On 8 11:34AM ; [facility] History of Present Illness Includes: History of Present Illness from this encounter KEMAR ROBERTSON is a 53 year old female. - Medication list reviewed - PRIMARY CARE PROVIDER : Dr Garber - Menopause has occurred Social History Description Last Updated Alcohol use socially 11/03/2018 Last Documented On 9 9:07AM ; [facility] Non-smoker 11/03/2018 Last Documented On 9 9:07AM ; [facility] Not using drugs 11/03/2018 Last Documented On 9 9:07AM ; [facility] Sexually active with 1 partners in the l ast year 11/03/2018 Last Documented On 9 9:07AM ; [facility] Social history unchanged 11/03/2018 Last Documented On 9 9:07AM ; [facility] Smoking status : Former smoker 9 Last Documented On 9 9:07AM ; [facility] Age of 1st intercourse was was 18 2017 Last Documented On 9 8:48AM ; [facility] Procedures and Surgical History Includes: Procedures from this encounter Procedures Code Diagnosis Performing Provider Service L ocation Service Date low fat diet Last Documented On 9 8:44AM ; [facility] fecal occult blood test was negative 40593 Last Documented On 9 8:43AM ; [facility] Surgical History Last Updated History of tubal ligation 1994 7 Last Documented On 9 8:48AM ; [facility] History of cholecystectomy 09/01/2013 Last Documented On 9 8:48AM ; [facility] Surgical / procedural history BACK SURGE RY 83 09/01/2013 Last Documented On 9 8:48AM ; [facility] Tonsillectomy 09/01/2013 Last Documented On 9 8:48AM ; [facility] Medical History Includes: Medical History addressed during this encounter Description Last Updated Recent change in medical his tory pt currently has a blood clot in her retina-injections 8 weeks-she said it is resolving 11/03/2018 Last Documented On 9 9:07AM ; [facility] History of Pap smear done 09/13/201710/15 Last Documented On 9 9:07AM ; [facility] Sexually active 11/03/2018 Last Documented On 9 9:07AM ; [facility] History of complete colonoscopy 2017 rep eat in [address] nunes 11/03/2018 Last Documented On 9 9:07AM ; [facility] History of screening mammogram was perfo rmed 09/13/2017 11/03/2018 Last Documented On 9 9:07AM ; [facility] Result: normal 11/03/2018 Last Documented On 9 9:07AM ; [facility] Result: normal 11/03/2018 Last Documented On 9 9:07AM ; [facility] 2 09/13/2017 Last Documented On 9 8:48AM ; [facility] Para 2 09/13/2017 Last Documented On 9 8:48AM ; [facility] Partner with vasectomy 09/13/2017 Last Documented On 9 8:48AM ; [facility] LMP: 2017 09/13/2017 Last Documented On 9 8:48AM ; [facility] Status post tubal ligation 199209/13/19 18 Last Documented On 9 8:48AM ; [facility] Family History Includes: Family History addressed during this encounter Description Last Updated Family history unchanged 11/03/2018 Last Documented On 9 9:07AM ; [facility] Maternal history of hypertension parents 11/03/2018 Last Documented On 9 9:07AM ; [facility] Maternal history of malignant female dorothy ast neoplasm pt mother 11/03/2018 Last Documented On 9 9:07AM ; [facility] Paternal history of family history of he art disease DAD 11/03/2018 Last Documented On 9 9:07AM ; [facility] Paternal history of pure hypercholestero lemia father 11/03/2018 Last Documented On 9 9:07AM ; [facility] sister had lung ca 09/09/2015 Last Documented On 9 8:48AM ; [facility] Spouse name: Abner 09/01/2013 Last Documented On 9 8:48AM ; [facility] First child named Nicole 1987 1 Last Documented On 9 8:48AM ; [facility] Second child named Joesph 199101/29/20 11 Last Documented On 9 8:48AM ; [facility] Review of Systems Includes: Review of Systems from this encounter Gastrointestinal: No pelvic pain. Genitourinary: No postmenopausal bleeding. No vaginal discharge. Mental Status Includes: Mental [...] Active Last Documented On 7 2:51PM ; [facility] Encounters Encounter Provider Location Date Check-In Time Check-Out Time Diagnosis ANNUAL SAMPLE SEWER EXAM PIYUSH SOLIS [facility] QUALITY CONTROL LAB TECH 11/04/19 19 8:38AM 9:10AM Screening Malig. Neoplasm Rectum,Normal Female Exam Insurance Includes: Active Insurance Policies Plan Name Member ID Group # Subscriber Relationship Effect fritz Dates 1 - [facility] [id number] ABNER ROBERTSON Clinical Notes Includes: Clinical Notes from this encounter No Clinical Notes Recorded
--- OUTSIDE RECORDS SUMMARY | 2024-09-25 12:28 | XMS_ITS | Clinical Summary ---
Author Organization [facility] [address] [place] [phone] Care Team Providers Care Clerk Cashier Name Role Phone Les Garber MD Primary Care Provider [phone] Allergies No known active allergies Medications lansoprazole [...] 02/18/2023 Assessment & Plan (07/25/2024 10:47 AM DEMAND GENERATOR MANAGER): chronic, progressively improving reviewed and discussed patient's [...] months Assessment & Plan (06/21/2023 9:06 AM DEMAND GENERATOR MANAGER): Chronic, uncontrolled, improving, recent TSH 8, iatrogenic [...] 12/21/2022 Assessment & Plan (06/21/2023 9:06 AM DEMAND GENERATOR MANAGER): No compressive symptoms Plan to repeat thyroid [...] 12/21/2022 Assessment & Plan (06/21/2023 9:10 AM DEMAND GENERATOR MANAGER): Liver enzymes back to normal range Assessment & Plan (02/18/2023 10:06 AM CDT): Slightly elevated liver function test probably due to underlying uncontrolled hyperthyroidism Slowly improving Continue to monitor Assessment & Plan (12/21/2022 6:46 PM CDT): Noted elevated transaminases levels - suspect due to underlying uncontrolled hyperthyroidism Will continue to monitor closely Notalgia 11/02/2012 Encounters Date Type Department Care Team Description 07/26/2024 Telephone [facility] Specialists of [address] [phone] Dominique Melendez MD Med Management (Methimazole) 07/24/2024 2:00 PM DEMAND GENERATOR MANAGER Office Visit [facility] Diabetes and Endocrinology [address] [place] [phone] Dominique Melendez MD Graves' disease (Primary Dx) 07/19/2024 Telephone [facility] Special[facility] of [address] [phone] Dominique Melendez MD from Last 3 Months Surgical History Surgery Date Site/Laterality Comments BACK SURGERY 08/16/1982 ENDOMETRIAL ABLATION CHOLECYSTECTOMY TUBAL LIGATION FOOT SURGERY 08/03/2023 Left Medical History Medical History Date Comments Hyperthyroidism Multinodular goiter GERD (gastroesophageal reflux disease) Autoimmune disease (CMS/HCC) (HCC) Tinnitus Dizziness Nosebleed Family History Medical History Relation Name Comments Hypertension Father Lung disease Father Cancer Mother Hypertension Mother Cancer Sister Thyroid disease Neg Hx Relation Name Status Comments Father Mother Sister Social History Tobacco Use Types Packs/Day Years [...] on file Legal Sex Female 1:06 AM DEMAND GENERATOR MANAGER Gender Identity Female 12/11/2022 3:40 PM CDT Sexual Orientation Not on file Obstetrics History Last Filed Vital Signs Vital Sign Reading Time Taken Comments Blood Pressure 122/80 07/24/2024 1:51 PM DEMAND GENERATOR MANAGER Pulse 69 07/24/2024 1:51 PM DEMAND GENERATOR MANAGER Temperature - - Respiratory Rate 16 07/24/2024 1:51 PM DEMAND GENERATOR MANAGER Oxygen Saturation - - Inhaled Oxygen Concentration - - Weight 74.8 kg (165 lb) 07/24/2024 1:51 PM DEMAND GENERATOR MANAGER Height 170.2 cm (5' 7) 07/24/2024 1:51 PM DEMAND GENERATOR MANAGER Body Mass Index 25.84 07/24/2024 1:51 PM DEMAND GENERATOR MANAGER Plan of Treatment Health Maintenance Due Date Last Done Comments Breast Cancer Screening-Mammogram 1965 Cervical Cancer Screening 1965 Colon Cancer Screening-Colonoscopy 1965 Hepatitis C Screening 1965 Hepatitis B Screening 1983 Regular Well Visit/Exam 18-64 1983 DTaP/Tdap/Td Vaccine (2 - Td or Tdap) 04/12/2023 04/12/2013 Covid-19 Vaccine (4 - 2023-2 5 season) 2024 08/05/2021, 11/09/2020, 10/17/2020 Influenza Vaccine (#1) 2024 , 06/01/2017 Depression Screening 01/17/2025 01/18/2024 Pneumococcal vaccine <65 Aged Out 12/04/2020 No longer eligible based on patient's age to complete this topic Zoster Vaccine Completed 07/16/2021, 12/04/2020 Procedures Procedure Name Priority Date/Time Associated Diagnosis Comments TSH RECEPTOR ANTIBODY Routine 07/05/2024 7:13 AM DEMAND GENERATOR MANAGER Graves' disease THYROID STIMULATING IMMUNOGLOBULIN Routine 07/05/2024 7:13 AM DEMAND GENERATOR MANAGER Graves' disease T4, FREE Routine 07/05/2024 7:13 AM DEMAND GENERATOR MANAGER Graves' disease T3, FREE Routine 07/05/2024 7:13 AM DEMAND GENERATOR MANAGER Graves' disease TSH Routine 07/05/2024 7:13 AM DEMAND GENERATOR MANAGER Graves' disease from Last 3 Months Results * (ABNORMAL) TSH receptor antibody (07/05/2024 7:13 AM DEMAND GENERATOR MANAGER) Blood 07/05/2024 7:13 AM DEMAND GENERATOR MANAGER Impressions EXTERNAL LAB - 07/05/2024 7:17 AM DEMAND GENERATOR MANAGER Result: 2.02 (< or =2.00) us Dominique Souza MD LAB BLOOD ORDERABLE S Edited Result - Final Performing Organization Address [facility] de Phone Number EXTERNAL LAB * Thyroid stimulating immunoglobulin (07/05/2024 7:13 AM DEMAND GENERATOR MANAGER) Blood 07/05/2024 7:13 AM DEMAND GENERATOR MANAGER Impressions EXTERNAL LAB - 07/05/2024 7:17 AM DEMAND GENERATOR MANAGER Result: <89 (<140% baseline) us Dominique Souza MD LAB BLOOD ORDERABLE S Final Result Performing Organization Address [facility] de Phone Number EXTERNAL LAB * T3, free (07/05/2024 7:13 AM DEMAND GENERATOR MANAGER) Blood 07/05/2024 7:13 AM DEMAND GENERATOR MANAGER Impressions EXTERNAL LAB - 07/05/2024 7:17 AM DEMAND GENERATOR MANAGER Result: 3.1 (2.3-4.2) us Dominique Souza MD LAB BLOOD ORDERABLE S Final Result Performing Organization Address [facility] Co de Phone Number EXTERNAL LAB * TSH (07/05/2024 7:13 AM DEMAND GENERATOR MANAGER) Scribed TSH 3.49 0.47 - 4.68 mcU/mL EXTERNAL LAB Blood 07/05/2024 7:13 AM DEMAND GENERATOR MANAGER us Dominique Souza MD LAB BLOOD ORDERABLE S Final Result Performing Organization Address City/[facility]/ZIP Co de Phone Number EXTERNAL LAB * T4, free (07/05/2024 7:13 AM DEMAND GENERATOR MANAGER) SCRIBED T4, Free 1.05 0.78 - 2.19 mcg/dL EXTERNAL LAB Blood 07/05/2024 7:13 AM DEMAND GENERATOR MANAGER us Dominique Souza MD LAB BLOOD ORDERABLE S Final Result Performing Organization Address [facility] Co de Phone Number EXTERNAL LAB from Last 3 Months Insurance [employer] OPEN ACCESS [employer] OPEN ACCESS Care Teams Clerk Cashier Relationship Specialty Start Date End Date Les Garber MD [address] [place] [address] PCP - General Internal Medicine 12/22/22
== END 2024-09-25 11:59 | disposition home or self-care (01) ==
LOC: ANHIMG 12:04
PROVIDERS: PCP Internal Medicine; Visit Provider Nurse Practitioner
DX: Z13.820 Encounter for screening for osteoporosis (principal); Z78.0 Asymptomatic menopausal state
CPT/HCPCS: 77080

== ENCOUNTER 2024-11-15 08:32 | Outpatient (CLI) | payer OTHER, SELFPAY ==
--- NOTE | ~2024-11-15 | MMUS_ITS ---
EXAMINATION: MM diagnostic natalia LT w allie, US breast LT limited HISTORY: Follow-up left breast masses TECHNIQUE: Additional 3-D tomosynthesis images of the left breast were performed and synthetic 2-D im ages were generated. CAD analysis was submitted and interpreted. High resolution Limited left breast ultrasound was performed. COMPARISON: Comparison to multiple prior studies sequentially, with oldest reviewed study dated 04/2020. BREAST PARENCHYMAL COMPOSITION: Not dense: There are scattered areas of fibroglandular density. FINDINGS: MAMMOGRAPHIC FINDINGS: The left breast is stable. No new masses, calcifications or architectural distortion to suggest malig greyson. ULTRASOUND: Limited left breast ultrasound: At 1:00, 3 cm from the nipple there is an oval hypoechoic mass with c entral echogenicity measuring 5 x 2 x 5 mm, unchanged from prior examination allowing for technique, compatible with intramammary lymph node. At 4:00, 8 cm from the nipple there is an oval circumscribe d complicated cyst measuring 8 mm with internal septations. This is not significantly changed from pr ior examination. IMPRESSION: 1. Stable likely benign left breast masses. 2. Given one year of interval stability, recommend 12 month followup bilateral screening mammogram an d Limited left breast ultrasound. BI-RADS category 3, probably benign findings. Reviewed, dictated and finalized at location A. IMPRESSION: 1. Stable likely benign left breast masses. 2. Given one year of interval stability, recommend 12 month followup bilateral screening mammogram and Limited left breast ultrasound. BI-RADS category 3, probably benign findings.
== END 2024-11-15 08:33 | disposition home or self-care (01) ==
LOC: MICIMG 08:33
PROVIDERS: PCP Internal Medicine; Visit Provider Obstetrics & Gynecology Gynecology
DX: R92.8 Other abnormal and inconclusive findings on diagnostic imaging of breast (principal); N60.02 Solitary cyst of left breast; N63.21 Unspecified lump in the left breast, upper outer quadrant
CPT/HCPCS: 76642; 77061; 77065; G0279

== ENCOUNTER 2024-12-20 07:15 | Outpatient (RCR) | payer OTHER, SELFPAY ==
--- OUTSIDE RECORDS SUMMARY | 2024-10-18 07:01 | XMS_ITS | Referral Summary ---
Author Organization [facility] [address] [place] [phone] Care Team Providers Care Reception Interviewer Name Role Phone Les Garber MD Primary Care Provider [phone] Encounters Date Type Department Care Team Description 07/26/2024 Telephone [facility] Specialists [address] [phone] Dominique Melendez MD Med Management (Methimazole) 07/24/2024 2:00 PM STATE APPELLATE CLERK Office Visit [facility] Diabetes and Endocrinology [address] [place] [phone] Dominique Melendez MD Graves' disease (Primary Dx) from Last 3 Months Allergies No known active allergies Medications lansoprazole (PREVACID) 30 mg capsule Take 1 capsule (30 mg total) by mouth daily 12/01/2022 Active aspirin 81 mg enteric coated tablet Take 1 tablet (81 mg total) by mouth daily Active methIMAzole (TAPAZOLE) 5 mg tabletIndicatio ns:Graves' disease Take 0.5 tablets (2.5 mg total) by mouth 4 (four) times a week 24 tablet 1 09/09/2024 Active Active Problems Problem Noted Date Diagnosed [...] 02/18/2023 Assessment & Plan (07/25/2024 10:47 AM STATE APPELLATE CLERK): chronic, progressively improving reviewed and discussed patient's [...] months Assessment & Plan (06/21/2023 9:06 AM STATE APPELLATE CLERK): Chronic, uncontrolled, improving, recent TSH 8, iatrogenic [...] 12/21/2022 Assessment & Plan (06/21/2023 9:06 AM STATE APPELLATE CLERK): No compressive symptoms Plan to repeat thyroid [...] 12/21/2022 Assessment & Plan (06/21/2023 9:10 AM STATE APPELLATE CLERK): Liver enzymes back to normal range Assessment [...] on file Legal Sex Female 1:06 AM STATE APPELLATE CLERK Gender Identity Female 12/11/2022 3:40 PM CDT Sexual Orientation Not on file Last Filed Vital Signs Vital Sign Reading Time Taken Comments Blood Pressure 122/80 07/24/2024 1:51 PM STATE APPELLATE CLERK Pulse 69 07/24/2024 1:51 PM STATE APPELLATE CLERK Temperature - - Respiratory Rate 16 07/24/2024 1:51 PM STATE APPELLATE CLERK Oxygen Saturation - - Inhaled Oxygen Concentration - - Weight 74.8 kg (165 lb) 07/24/2024 1:51 PM STATE APPELLATE CLERK Height 170.2 cm (5' 7) 07/24/2024 1:51 PM STATE APPELLATE CLERK Body Mass Index 25.84 07/24/2024 1:51 PM STATE APPELLATE CLERK Plan of Treatment Not on file Insurance [employer] OPEN ACCESS [employer] OPEN ACCESS Care Teams Reception Interviewer Relationship Specialty Start Date End Date Les Garber MD [address] [place] [address] PCP - General Internal Medicine 12/22/22
--- OUTSIDE RECORDS SUMMARY | 2024-10-18 07:01 | XMS_ITS | Clinical Summary ---
Author Organization [facility] Address [address] [place] [address] Phone Care Team Providers Care Crabber Name Role Phone NIMO QUAN, EZEKIEL Delgadillo Primary Care Provider [phone] DIOGO QUAN, GAGAN C Unavailable [phone] Reason for Visit and Chief Complaint visit for: postsurgical exam - The Chief Complaint is: Post Op visit- 2 weeks. Novasure 09/28/16 Problems Includes: Problems addressed during this encounter and other active Problems All Visits Onset Date Resolved Date Provider Condition S tatus Ent Disorders 11/03/2018 PIYUSH SOLIS [facility]NP-BC Active Last Documented On 11/03/2018 8:58AM ; [facility] Note: blood clot right eye Gynecologic Services Thermal Endometrial Ablation 09/13/2017 PIYUSH SOLIS [facility]NP-BC Active Last Documented On 09/13/2017 3:12PM ; [facility] Note: - Dr. 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 PIYUSH SOLIS [facility]NP-BC Active Last Documented On 07/20/2016 3:00PM ; [facility] Note: + Fibroid Family History 09/05/2014 PIYUSH SOLIS [facility]NP-BC Active Last Documented On 09/05/2014 2:24PM ; [facility] Note: sister of lung cancer, mother h/o breast cancer Endometriosis 09/28/2012 PIYUSH SOLIS [facility]NP[facility] Active Last Documented On 3 3:59PM ; [facility] Plan of Treatment No Plan of Treatment Recorded Assessments Includes: Assessments from this encounter Findings - POST OP VISIT - Last Documented On 10/12/2016 3:27PM ; [facility] Medical Equipment - Implanted Devices Includes: Current Devices No Medical Equipment Recorded Medications Includes: Medications discussed during this encounter and other current Medications Discontinued / Stopped on this date on 09/28/2016 Valium 10MG Oral Tablet Provider: Diagnosis: Last Documented On 10/12/2016 2:51PM By SPIKE GRACE LPN ; [facility] Ibuprofen 600MG Oral Tablet Provider: Diagnosis: Last Documented On 10/12/2016 2:51PM By SPIKE GRACE LPN ; [facility] Doxycycline Hyclate 100MG Oral Capsule, conventional Provider: Diagnosis: Last Documented On 10/12/2016 2:50PM By SPIKE GRACE LPN ; [facility] vicoden 5/500mg Oral Tablet Provider: Diagnosis: Last Documented On 10/12/2016 2:51PM By SPIKE GRACE LPN ; [facility] Current Medications (continue as prescribed) Adult Aspirin Regimen 81MG Oral Tablet Delayed Release 11/03/2018 Provider: Diagnosis: Last Documented On 11/03/2018 8:56AM By EDMUND MURRAY ; [facility] CO-Q 10 Cameron-3 Fish Oil OR CAPS 09/05/2014 Provider : Diagnosis: Last Documented On 09/05/2014 2:22PM By EDMUND MURRAY ; [facility] Bee Pollen 500 MG OR CHEW 09/05/2014 Provider: Diagnosis: Last Documented On 09/05/2014 2:22PM By EDMUND MURRAY ; [facility] B Complex OR CAPS 09/05/2014 Provider: Diagnosis: Last Documented On 09/05/2014 2:22PM By EDMUND MURRAY ; [facility] CVS Folic Acid 400 MCG OR TABS 09/05/2014 Provider: Diagnosis: Last Documented On 09/05/2014 2:22PM By EDMUND MURRAY ; [facility] Womens Multivitamin Plus OR TABS 08/29/2012 Provider : Diagnosis: Last Documented On 08/29/2012 9:54AM By RADHAMES MURRAY ; [facility] Past Medications on file Morrow 5-325 MG Tablet 09/04/2016 - 09/07/2016 Provider : EMELINA ARBOLEDA MD Diagnosis: 1-2 every 4-6 hours as needed Last Documented On 09/04/2016 1:56PM By EMELINA ARBOLEDA MD ; [facility] Flagyl 500 MG Tablet 07/20/2016 - 07/27/2016 Provider: PIYUSH NICK Diagnosis: Acute vaginitis One tablet twice a day Last Documented On 6 3:14PM By PIYUSH NICK ; [facility] Diflucan 150 MG OR TABS 09/01/2013 - 10/01/2013 Provider: PIYUSH NICK Diagnosis: CANDIDAL VULVOVA GINITIS one dose po x 1 and rpt. in 3 days Last Documented On 4 1:23PM By PIYUSH NICK ; [facility] Medications Administered Includes: Administered Medications from this encounter No Administered Medications Recorded Vital Signs Includes: Vital Signs from this encounter Vital Name 10/12/2016 02:44P 10/12/2016 02: 41P Blood Pressure Sitting (mmHg) 122/78 Height (in) 67 67 Weight (lb) 161.4 Body Mass Index (kg/m2) 25.3 Body Surface Area (m2) 1.8 Last Documented: On 10/12/2016 2:49PM ; [facility] On 10/12/2016 2:41PM ; [facility] Results Includes: Results discussed during this [...] 10/12/2016 Last Documented On 7 3:27PM ; [facility] Sexually active 10/12/2016 Last Documented On 7 3:27PM ; [facility] Non-smoker 10/12/2016 Last Documented On 7 3:27PM ; [facility] Smoking Status Unknown Procedures and Surgical History Includes: Procedures from this encounter Procedures Code Diagnosis Performing Provider Service L ocation Service Date follow-up visit for annual exam Last Documented On 7 3:20PM ; [facility] Clinical summary provided to patient Last Documented On 7 3:19PM ; [facility] Surgical History Last Updated History of tubal ligation 1994 7 Last Documented On 7 3:27PM ; [facility] Medical History Includes: Medical History addressed during this encounter Description Last Updated Contraception: Vasectomy, tubal 10/12/19 Last Documented On 7 3:27PM ; [facility] 2 10/12/2016 Last Documented On 7 3:27PM ; [facility] Last mammogram date: 09/11/2016 7 Last Documented On 7 3:27PM ; [facility] Last pap smear date 09/11/2016 10/12/2016 Last Documented On 7 3:27PM ; [facility] LMP: 09/18/2016 10/12/2016 Last Documented On 7 3:27PM ; [facility] Para 2 10/12/2016 Last Documented On 7 3:27PM ; [facility] Family History Includes: Family History addressed during this encounter Description Last Updated Maternal history of hypertension parents 11/03/2018 Last Documented On 7 2:40PM ; [facility] Paternal history of family history of he art disease DAD 11/03/2018 Last Documented On 7 2:40PM ; [facility] Paternal history of pure hypercholestero lemia father 11/03/2018 Last Documented On 7 2:40PM ; [facility] Family history of malignant female breast neoplasm mother at age 63-mastectomy and chemo 09/13/2017 Last Documented On 7 2:40PM ; [facility] sister had lung ca 09/09/2015 Last Documented On 7 2:40PM ; [facility] Spouse name: Abner 09/01/2013 Last Documented On 7 2:40PM ; [facility] Family history of hypercholesterolemia f ather 09/01/2013 Last Documented On 7 2:40PM ; [facility] Family history of hypertension parents 0 09/01/2013 Last Documented On 7 2:40PM ; [facility] First child named Nicole 1987 1 Last Documented On 7 2:40PM ; [facility] Second child named Joesph 199101/29/20 11 Last Documented On 7 2:40PM ; [facility] Heart disease DAD 09/04/2010 Last Documented On 7 2:40PM ; [facility] Family history of uterine cancer 010 Last Documented On 7 2:40PM ; [facility] Review of Systems Includes: Review [...] Active Last Documented On 7 2:51PM ; [facility] Encounters Encounter Provider Location Date Check-In Time Check-Out Time Diagnosis POST OP VISIT EMELINA ARBOLEDA MD [facility] [employer] 10/12/19 17 2:39PM 3:28PM Post Op Visit Insurance Includes: Active Insurance Policies Plan Name Member ID Group # Subscriber Relationship Effect fritz Dates 1 - [facility] [id number] ABNER ROBERTSON Clinical Notes Includes: Clinical Notes from this encounter No Clinical Notes Recorded
--- OUTSIDE RECORDS SUMMARY | 2024-10-18 07:01 | XMS_ITS ---
Author Organization [facility] Address [address] [place] [address] Phone Care Team Providers Care Culvert Installer Name Role Phone NIMO QUAN, EZEKIEL Delgadillo Primary Care Provider [phone] DIOGO QUAN, GAGAN C Unavailable [phone] Problems Includes: Active, inactive, and resolved Problems All Visits Onset Date Resolved Date Provider Condition S tatus Ent Disorders 11/03/2018 PIYUSH SOLIS [facility] Active Last Documented On 11/03/2018 8:58AM ; [facility] Note: blood clot right eye Gynecologic Services Thermal Endometrial Ablation 09/13/2017 PIYUSH SOLIS [facility]NP-BC Active Last Documented On 09/13/2017 3:12PM ; [facility] Note: - Dr. 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 PIYUSH SOLIS [facility]NP-BC Active Last Documented On 07/20/2016 3:00PM ; [facility] Note: + Fibroid Family History 09/05/2014 PIYUSH SOLIS [facility]NP-BC Active Last Documented On 09/05/2014 2:24PM ; [facility] Note: sister of lung cancer, mother h/o breast cancer Endometriosis 09/28/2012 PIYUSH SOLIS [facility]NP-BC Active Last Documented On 3 3:59PM ; [facility] Plan of Treatment Findings Encounter Date Ordered Clinical summary pro vided to patient ANNUAL PRODUCTION EDITOR EXAM with PIYUSH SOLIS [facility]NP-BC 11/03/2018 Last Documented On 9 9:07AM ; [facility] Ordered follow-up visit 1 ye ar or as needed ANNUAL PRODUCTION EDITOR EXAM with PIYUSH SOLIS [facility]NP-BC 11/03/2018 Last Documented On 9 9:07AM ; [facility] Ordered Clinical summary pro vided to patient ANNUAL PRODUCTION EDITOR EXAM with PIYUSH SOLIS [facility]NP-BC 09/13/2017 Last Documented On 8 3:19PM ; [facility] Ordered follow-up visit 1 ye ar or as needed ANNUAL PRODUCTION EDITOR EXAM with PIYUSH SOLIS [facility]NP[facility]BC 09/13/2017 Last Documented On 8 3:19PM ; [facility] Ordered Clinical summary pro vided to patient PUBLIC WORKS MANAGER EXAM with PIYUSH SOLIS [facility]NP-BC 09/11/2016 Last Documented On 7 2:31PM ; [facility] Ordered follow-up visit 1 ye ar or as needed PUBLIC WORKS MANAGER EXAM with PIYUSH SOLIS [facility]NP-BC 09/11/2016 Last Documented On 7 2:31PM ; [facility] Ordered Clinical summary pro vided to patient PROCEDURE OFFICE with PIYUSH SOLIS WHNP-BC 07/28/2016 Last Documented On 6 4:06PM ; [facility] Ordered Clinical summary pro vided to patient ENDOMETRIAL BIOPSY with PIYUSH SOLIS [facility]NP-BC 07/20/2016 Last Documented On 6 3:14PM ; [facility] Ordered endometrial biopsy ENDOMETRIAL BIOPSY wi th PIYUSH SOLIS WHNP-BC 07/20/2016 Last Documented On 6 3:14PM ; [facility] Ordered Clinical summary pro vided to patient ANNUAL PRODUCTION EDITOR EXAM with PIYUSH SOLIS [facility]NP-BC 09/09/2015 Last Documented On 6 1:17PM ; [facility] Ordered follow-up visit 1 ye ar or as needed ANNUAL PRODUCTION EDITOR EXAM with PIYUSH SOLIS [facility]NP-BC 09/09/2015 Last Documented On 6 1:17PM ; [facility] Ordered Clinical summary pro vided to patient ANNUAL PRODUCTION EDITOR EXAM with PIYUSH SOLIS WHNP-BC 09/05/2014 Last Documented On 6 1:21PM ; [facility] Ordered follow-up visit 1 ye ar or as needed ANNUAL PRODUCTION EDITOR EXAM with PIYUSH SOLIS WHNP-BC 09/05/2014 Last Documented On 6 1:21PM ; [facility] Ordered Clinical summary pro vided to patient ANNUAL PRODUCTION EDITOR EXAM with PIYUSH SOLIS [facility] 09/01/2013 Last Documented On 4 1:24PM ; [facility] Ordered follow-up visit 1 ye ar or as needed ANNUAL PRODUCTION EDITOR EXAM with PIYUSH SOLIS [facility] 09/01/2013 Last Documented On 4 1:24PM ; [facility] Ordered Clinical summary pro vided to patient NEW PUBLIC WORKS MANAGER EXAM with PIYUSH SOLIS [facility] 08/29/2012 Last Documented On 3 10:08AM ; [facility] Ordered follow-up visit 1 ye ar or as needed NEW PUBLIC WORKS MANAGER EXAM with PIYUSH SOLIS [facility] 08/29/2012 Last Documented On 3 10:08AM ; [facility] Instructions to patient Instructions for patient : B reast Self Exam discussed Last Documented On 9 8:43AM ; [facility] Instructions for patient : B reast Self Exam discussed Last Documented On 8 3:11PM ; [facility] Lose weight Last Documented On 8 3:11PM ; [facility] Colonoscopy Handout given to patient Last Documented On 8 3:11PM ; [facility] Instructions for patient : B reast Self Exam discussed Last Documented On 7 2:18PM ; [facility] Colonoscopy Handout given to patient Last Documented On 7 2:19PM ; [facility] Instructions for patient : p atient is to keep a menstrual diary to help with further evaluation and treatment Last Documented On 6 3:45PM ; [facility] Instructions for patient ER if dizzy, vomiting or light-headed due to heavy bleeding Last Documented On 6 3:45PM ; [facility] Instructions for patient ER if bleeding through reg. sized pad/tampon < 1 hour Last Documented On 6 2:52PM ; [facility] Instructions for patient : p atient is to keep a menstrual diary to help with further evaluation and treatment Last Documented On 6 2:52PM ; [facility] Instructions for patient ER if dizzy, vomiting or light-headed due to heavy bleeding Last Documented On 6 2:52PM ; [facility] Instructions for patient : K eep the area around the vulva dry. Allow the area to have exposure to air. Avoid irritants such as fabric softeners and perfumed soaps.~ Last Documented On 6 3:12PM ; [facility] Advised d/c scented bath pro ducts Last Documented On 6 3:12PM ; [facility] Instructions for patient : B reast Self Exam discussed Last Documented On 6 2:12PM ; [facility] Colonoscopy Handout given to patient Last Documented On 6 2:13PM ; [facility] Instructions for patient : B reast Self Exam discussed Last Documented On 5 2:14PM ; [facility] Instructions for patient : B reast Self Exam discussed Last Documented On 4 8:56AM ; [facility] Instructions for patient : K eep the area around the vulva dry. Allow the area to have exposure to air. Avoid irritants such as fabric softeners and perfumed soaps.~ Last Documented On 4 1:23PM ; [facility] Advised d/c scented bath pro ducts Last Documented On 4 1:23PM ; [facility] Instructed to call if excess fritz bleeding or abdominal/pelvic pain Last Documented On 3 3:52PM ; [facility] Patient may take Motrin OTC PRN as directed Last Documented On 3 3:52PM ; [facility] Instructions for patient : B reast Self Exam discussed Last Documented On 3 9:36AM ; [facility] Lose weight Last Documented On 3 9:37AM ; [facility] Instructions for patient : B reast Self Exam discussed. Reviewed monthly self breast examination and technique Last Documented On 1 1:47PM ; [facility] Recommend diet and exercise at least 30 min three times per week Last Documented On 1 1:47PM ; [facility] Discussed Gardasil vaccinati on and recommend vaccination for HPV prevention. Handout given. Patient understands sexual transmission of high-risk HPV and the association with abnormal pap smear and cervical cancer. Recommend to decrease high risk behaviors such as: number of sexual partners, smoking and contraception use Last Documented On 1 1:47PM ; [facility] Recommend preventative vacci nation including but not limited to influenza/flu vaccine, DTP, Rubella, Hepatitis B vaccination series Last Documented On 1 1:47PM ; [facility] Recommend annual pap smear e xamination or every three year if high risk hpv negative and 3 consecutive normal pap examination during preceding three years Last Documented On 1 1:47PM ; [facility] Recommend TSH, fasting gluco se, fasting lipid panel, CBC, BMP Last Documented On 1 1:47PM ; [facility] Recommend Calcium supplement ation and weight bearing exercise Last Documented On 1 1:47PM ; [facility] Instructions for patient : B reast Self Exam discussed. Reviewed monthly self breast examination and technique Last Documented On 0 11:42AM ; [facility] Recommend diet and exercise at least 30 min three times per week Last Documented On 0 11:42AM ; [facility] Discussed Gardasil vaccinati on and recommend vaccination for HPV prevention. Handout given. Patient understands sexual transmission of high-risk HPV and the association with abnormal pap smear and cervical cancer. Recommend to decrease high risk behaviors such as: number of sexual partners, smoking and contraception use Last Documented On 0 11:42AM ; [facility] Recommend preventative vacci nation including but not limited to influenza/flu vaccine, DTP, Rubella, Hepatitis B vaccination series Last Documented On 0 11:42AM ; [facility] Recommend annual pap smear e xamination or every three year if high risk hpv negative and 3 consecutive normal pap examination during preceding three years Last Documented On 0 11:42AM ; [facility] Recommend TSH, fasting gluco se, fasting lipid panel, CBC, BMP Last Documented On 0 11:42AM ; [facility] Recommend Calcium supplement ation and weight bearing exercise Last Documented On 0 11:42AM ; [facility] Education and Decision Aids were provided during visit for: Patient Education: Daily ilir cium and vitamin D Last Documented On 9 8:43AM ; [facility] Patient Education: weight be aring exercise Last Documented On 9 8:43AM ; [facility] Patient Education: Daily ilir cium and vitamin D Last Documented On 8 3:11PM ; [facility] Patient Education: weight be aring exercise Last Documented On 8 3:11PM ; [facility] Patient Education: Daily ilir cium and vitamin D Last Documented On 7 2:18PM ; [facility] Patient Education: weight be aring exercise Last Documented On 7 2:18PM ; [facility] INFORMED CONSENT DISCUSSION: Endometrial biopsy was discussed in detail including discomfort, insufficient specimen with need to repeat test, and rare incidence of uterine perforation. Patient expressed understanding of the above and consented to the procedure Last Documented On 6 3:45PM ; [facility] Bacterial Vaginosis Informat ion Sheet Given Last Documented On 6 3:12PM ; [facility] Patient Education: Daily ilir cium and vitamin D Last Documented On 6 2:12PM ; [facility] Patient Education: weight be aring exercise Last Documented On 6 2:12PM ; [facility] Patient Education: Daily ilir cium and vitamin D Last Documented On 5 2:14PM ; [facility] Patient Education: weight be aring exercise Last Documented On 5 2:14PM ; [facility] Patient Education: Daily ilir cium and vitamin D Last Documented On 4 8:56AM ; [facility] Patient Education: weight be aring exercise Last Documented On 4 8:56AM ; [facility] Candidiasis Vulvovaginitis I nformation Sheet Given Last Documented On 4 1:23PM ; [facility] INFORMED CONSENT DISCUSSION: Endometrial biopsy was discussed in detail including discomfort, insufficient specimen with need to repeat test, and rare incidence of uterine perforation. Patient expressed understanding of the above and consented to the procedure Last Documented On 3 3:52PM ; [facility] Patient Education: Daily ilir cium and vitamin D Last Documented On 3 9:36AM ; [facility] Patient Education: weight be aring exercise Last Documented On 3 9:36AM ; [facility] The patient was counseled re garding the following vaccinations : Dtap, flu, Gardasil, pneumovax, shingles, Hapatitis B, H1N1. Handouts given Last Documented On 1 4:29PM ; [facility] Assessments Includes: Assessments for all patient encounters Findings Encounter Date NORMAL FEMALE EXAM ANNUAL PRODUCTION EDITOR EXAM with PIYUSH SOLIS [facility] 11/03/2018 Last Documented On 9 9:07AM ; [facility] Screening Malig. Neoplasm Rectum ANNUAL PRODUCTION EDITOR EXAM with PIYUSH SOLIS [facility] 11/03/2018 Last Documented On 9 9:07AM ; [facility] NORMAL FEMALE EXAM ANNUAL PRODUCTION EDITOR EXAM with PIYUSH SOLIS NP-BC 09/13/2017 Last Documented On 8 3:19PM ; [facility] Screening Malig. Neoplasm Rectum ANNUAL PRODUCTION EDITOR EXAM with PIYUSH SOLIS [facility] 09/13/2017 Last Documented On 8 3:19PM ; [facility] POST OP VISIT POST OP VISIT with EMELINA ARBOLEDA MD 10/12/2016 Last Documented On 7 3:27PM ; [facility] Menorrhagia PROCEDURE OFFICE with EMELINA GARZA MD 09/28/2016 Last Documented On 7 3:59PM ; [facility] NORMAL FEMALE EXAM PUBLIC WORKS MANAGER EXAM with PIYUSH Isaac [facility] 09/11/2016 Last Documented On 7 2:31PM ; [facility] Screening Malig. Neoplasm Rectum PUBLIC WORKS MANAGER EXAM with Claude SOLIS [facility] 09/11/2016 Last Documented On 7 2:31PM ; [facility] Menorrhagia CONSULTATION with EMELINA ARBOLEDA MD 09/04/2016 Last Documented On 7 2:01PM ; [facility] Menorrhagia PROCEDURE OFFICE with PIYUSH EVANS NP-BC 07/28/2016 Last Documented On 6 4:06PM ; [facility] Menorrhagia ENDOMETRIAL BIOPSY with PIYUSH SOLIS NP-BC 07/20/2016 Last Documented On 6 3:14PM ; [facility] Vulvovaginitis ENDOMETRIAL BIOPSY with PIYUSHEDEL SOLIS NP-BC 07/20/2016 Last Documented On 6 3:14PM ; [facility] NORMAL FEMALE EXAM ANNUAL PRODUCTION EDITOR EXAM with PIYUSH SOLIS NP-BC 09/09/2015 Last Documented On 6 1:17PM ; [facility] Screening Malig. Neoplasm Rectum ANNUAL PRODUCTION EDITOR EXAM with PIYUSHEDEL SOLIS NP-BC 09/09/2015 Last Documented On 6 1:17PM ; [facility] NORMAL FEMALE EXAM ANNUAL PRODUCTION EDITOR EXAM with PIYUSHEDEL SOLIS NP-BC 09/05/2014 Last Documented On 6 1:21PM ; [facility] Screening Malig. Neoplasm Rectum ANNUAL PRODUCTION EDITOR EXAM with PIYUSH SOLIS NP-BC 09/05/2014 Last Documented On 6 1:21PM ; [facility] Rae albicans vulvovaginitis ANNUAL PRODUCTION EDITOR EXAM with PIYUSHEDEL SOLIS NP-BC 09/01/2013 Last Documented On 4 1:24PM ; [facility] NORMAL FEMALE EXAM ANNUAL PRODUCTION EDITOR EXAM with PIYUSH SOLIS NP-BC 09/01/2013 Last Documented On 4 1:24PM ; [facility] Screening Malig. Neoplasm Rectum ANNUAL PRODUCTION EDITOR EXAM with PIYUSH SOLIS NP-BC 09/01/2013 Last Documented On 4 1:24PM ; [facility] NORMAL FEMALE EXAM NEW PUBLIC WORKS MANAGER EXAM with PIYUSH SALINAS MARCEL NP-BC 08/29/2012 Last Documented On 3 10:08AM ; [facility] Screening Malig. Neoplasm Rectum NEW PUBLIC WORKS MANAGER EXAM wi th PIYUSH SOLIS NP-BC 08/29/2012 Last Documented On 3 10:08AM ; [facility] MAMMOGRAM SCREENING PUBLIC WORKS MANAGER EXAM with TATIANA AYALA M.D. 08/04/2011 Last Documented On 1 1:57PM ; [facility] NORMAL FEMALE EXAM PUBLIC WORKS MANAGER EXAM with TATIANA CABRERA M.D. 08/04/2011 Last Documented On 1 1:57PM ; [facility] Dysfunctional uterine bleeding PROBLEM VISIT wit h TATIANA BHATT M.D. 01/28/2011 Last Documented On 1 4:35PM ; [facility] Cervical polyps PROCEDURE OFFICE with TATIANA BHATT M.D. 09/04/2010 Last Documented On 1 9:27AM ; [facility] Cervical polyps NEW PUBLIC WORKS MANAGER EXAM with TATIANA AYALA M.D. 07/23/2010 Last Documented On 0 11:46AM ; [facility] MAMMOGRAM SCREENING NEW PUBLIC WORKS MANAGER EXAM with TATIANA BHATT M.D. 07/23/2010 Last Documented On 0 11:46AM ; [facility] NORMAL FEMALE EXAM NEW PUBLIC WORKS MANAGER EXAM with TATIANA CORTES M.D. 07/23/2010 Last Documented On 0 11:46AM ; [facility] Instructions Includes: Instructions for all patient encounters Instructions to patient Instructions for patient : B reast Self Exam discussed Last Documented On 9 8:43AM ; [facility] Instructions for patient : B reast Self Exam discussed Last Documented On 8 3:11PM ; [facility] Lose weight Last Documented On 8 3:11PM ; [facility] Colonoscopy Handout given to patient Last Documented On 8 3:11PM ; [facility] Instructions for patient : B reast Self Exam discussed Last Documented On 7 2:18PM ; [facility] Colonoscopy Handout given to patient Last Documented On 7 2:19PM ; [facility] Instructions for patient : p atient is to keep a menstrual diary to help with further evaluation and treatment Last Documented On 6 3:45PM ; [facility] Instructions for patient ER if dizzy, vomiting or light-headed due to heavy bleeding Last Documented On 6 3:45PM ; [facility] Instructions for patient ER if bleeding through reg. sized pad/tampon < 1 hour Last Documented On 6 2:52PM ; [facility] Instructions for patient : p atient is to keep a menstrual diary to help with further evaluation and treatment Last Documented On 6 2:52PM ; [facility] Instructions for patient ER if dizzy, vomiting or light-headed due to heavy bleeding Last Documented On 6 2:52PM ; [facility] Instructions for patient : K eep the area around the vulva dry. Allow the area to have exposure to air. Avoid irritants such as fabric softeners and perfumed soaps.~ Last Documented On 6 3:12PM ; [facility] Advised d/c scented bath pro ducts Last Documented On 6 3:12PM ; [facility] Instructions for patient : B reast Self Exam discussed Last Documented On 6 2:12PM ; [facility] Colonoscopy Handout given to patient Last Documented On 6 2:13PM ; [facility] Instructions for patient : B reast Self Exam discussed Last Documented On 5 2:14PM ; [facility] Instructions for patient : B reast Self Exam discussed Last Documented On 4 8:56AM ; [facility] Instructions for patient : K eep the area around the vulva dry. Allow the area to have exposure to air. Avoid irritants such as fabric softeners and perfumed soaps.~ Last Documented On 4 1:23PM ; [facility] Advised d/c scented bath pro ducts Last Documented On 4 1:23PM ; [facility] Instructed to call if excess fritz bleeding or abdominal/pelvic pain Last Documented On 3 3:52PM ; [facility] Patient may take Motrin OTC PRN as directed Last Documented On 3 3:52PM ; [facility] Instructions for patient : B reast Self Exam discussed Last Documented On 3 9:36AM ; [facility] Lose weight Last Documented On 3 9:37AM ; [facility] Instructions for patient : B reast Self Exam discussed. Reviewed monthly self breast examination and technique Last Documented On 1 1:47PM ; [facility] Recommend diet and exercise at least 30 min three times per week Last Documented On 1 1:47PM ; [facility] Discussed Gardasil vaccinati on and recommend vaccination for HPV prevention. Handout given. Patient understands sexual transmission of high-risk HPV and the association with abnormal pap smear and cervical cancer. Recommend to decrease high risk behaviors such as: number of sexual partners, smoking and contraception use Last Documented On 1 1:47PM ; [facility] Recommend preventative vacci nation including but not limited to influenza/flu vaccine, DTP, Rubella, Hepatitis B vaccination series Last Documented On 1 1:47PM ; [facility] Recommend annual pap smear e xamination or every three year if high risk hpv negative and 3 consecutive normal pap examination during preceding three years Last Documented On 1 1:47PM ; [facility] Recommend TSH, fasting gluco se, fasting lipid panel, CBC, BMP Last Documented On 1 1:47PM ; [facility] Recommend Calcium supplement ation and weight bearing exercise Last Documented On 1 1:47PM ; [facility] Instructions for patient : B reast Self Exam discussed. Reviewed monthly self breast examination and technique Last Documented On 0 11:42AM ; [facility] Recommend diet and exercise at least 30 min three times per week Last Documented On 0 11:42AM ; [facility] Discussed Gardasil vaccinati on and recommend vaccination for HPV prevention. Handout given. Patient understands sexual transmission of high-risk HPV and the association with abnormal pap smear and cervical cancer. Recommend to decrease high risk behaviors such as: number of sexual partners, smoking and contraception use Last Documented On 0 11:42AM ; [facility] Recommend preventative vacci nation including but not limited to influenza/flu vaccine, DTP, Rubella, Hepatitis B vaccination series Last Documented On 0 11:42AM ; [facility] Recommend annual pap smear e xamination or every three year if high risk hpv negative and 3 consecutive normal pap examination during preceding three years Last Documented On 0 11:42AM ; [facility] Recommend TSH, fasting gluco se, fasting lipid panel, CBC, BMP Last Documented On 0 11:42AM ; [facility] Recommend Calcium supplement ation and weight bearing exercise Last Documented On 0 11:42AM ; [facility] Education and Decision Aids were provided during visit for: Patient Education: Daily ilir cium and vitamin D Last Documented On 9 8:43AM ; [facility] Patient Education: weight be aring exercise Last Documented On 9 8:43AM ; [facility] Patient Education: Daily ilir cium and vitamin D Last Documented On 8 3:11PM ; [facility] Patient Education: weight be aring exercise Last Documented On 8 3:11PM ; [facility] Patient Education: Daily ilir cium and vitamin D Last Documented On 7 2:18PM ; [facility] Patient Education: weight be aring exercise Last Documented On 7 2:18PM ; [facility] INFORMED CONSENT DISCUSSION: Endometrial biopsy was discussed in detail including discomfort, insufficient specimen with need to repeat test, and rare incidence of uterine perforation. Patient expressed understanding of the above and consented to the procedure Last Documented On 6 3:45PM ; [facility] Bacterial Vaginosis Informat ion Sheet Given Last Documented On 6 3:12PM ; [facility] Patient Education: Daily ilir cium and vitamin D Last Documented On 6 2:12PM ; [facility] Patient Education: weight be aring exercise Last Documented On 6 2:12PM ; [facility] Patient Education: Daily ilir cium and vitamin D Last Documented On 5 2:14PM ; [facility] Patient Education: weight be aring exercise Last Documented On 5 2:14PM ; [facility] [facility] Patient Education: Daily ilir cium and vitamin D Last Documented On 4 8:56AM ; [facility] Patient Education: weight be aring exercise Last Documented On 4 8:56AM ; [facility] Candidiasis Vulvovaginitis I nformation Sheet Given Last Documented On 4 1:23PM ; [facility] INFORMED CONSENT DISCUSSION: Endometrial biopsy was discussed in detail including discomfort, insufficient specimen with need to repeat test, and rare incidence of uterine perforation. Patient expressed understanding of the above and consented to the procedure Last Documented On 3 3:52PM ; [facility] Patient Education: Daily ilir cium and vitamin D Last Documented On 3 9:36AM ; [facility] Patient Education: weight be aring exercise Last Documented On 3 9:36AM ; [facility] The patient was counseled re garding the following vaccinations : Dtap, flu, Gardasil, pneumovax, shingles, Hapatitis B, H1N1. Handouts given Last Documented On 1 4:29PM ; [facility] Medical Equipment - Implanted Devices Includes: Current and historical Devices No Medical Equipment Recorded Medications Includes: Current and historical Medications Current Medications (continue as prescribed) Adult Aspirin Regimen 81MG Oral Tablet Delayed Release 11/03/2018 Provider: Diagnosis: Last Documented On 11/03/2018 8:56AM By EDMUND MURRAY ; [facility] CO-Q 10 [place]-3 Fish Oil OR CAPS 09/05/2014 Provider : Diagnosis: Last Documented On 09/05/2014 2:22PM By EDMUND MURRAY ; [facility] Bee Pollen 500 MG OR CHEW 09/05/2014 Provider: Diagnosis: Last Documented On 09/05/2014 2:22PM By EDMUND MURRAY ; [facility] B Complex OR CAPS 09/05/2014 Provider: Diagnosis: Last Documented On 09/05/2014 2:22PM By EDMUND MURRAY ; [facility] CVS Folic Acid 400 MCG OR TABS 09/05/2014 Provider: Diagnosis: Last Documented On 09/05/2014 2:22PM By EDMUND MURRAY ; [facility] Womens Multivitamin Plus OR TABS 08/29/2012 Provider : Diagnosis: Last Documented On 08/29/2012 9:54AM By RADHAMES MURRAY ; [facility] Past Medications on file Valium 10MG Oral Tablet 09/28/2016 - 10/12/2016 Provid er: Diagnosis: Last Documented On 10/12/2016 2:51PM By SPIKE GRACE LPN ; [facility] Ibuprofen 600MG Oral Tablet 09/28/2016 - 10/12/2016 Pr ovider: Diagnosis: Last Documented On 10/12/2016 2:51PM By SPIKE GRACE LPN ; [facility] Doxycycline Hyclate 100MG Or al Capsule, conventional 09/28/2016 - 10/12/2016 Provider: Diagnosis: Last Documented On 10/12/2016 2:50PM By SPIKE GRACE LPN ; [facility] vicoden 5/500mg Oral Tablet 09/28/2016 - 10/12/2016 Pr ovider: Diagnosis: Last Documented On 10/12/2016 2:51PM By SPIKE GRACE LPN ; [facility] [place] 5-325 MG Tablet 09/04/2016 - 09/07/2016 Provider : EMELINA ARBOLEDA MD Diagnosis: 1-2 every 4-6 hours as needed Last Documented On 09/04/2016 1:56PM By EMELINA ARBOLEDA MD ; [facility] Calcium 500 MG Tablet 09/04/2016 - 09/13/2017 Provider : Diagnosis: Last Documented On 09/13/2017 3:09PM By EDMUND MURRAY ; [facility] Flagyl 500 MG Tablet 07/20/2016 - 07/27/2016 Provider: PIYUSH NICK Diagnosis: Acute vaginitis One tablet twice a day Last Documented On 6 3:14PM By PIYUSH NICK ; [facility] Diflucan 150 MG OR TABS 09/01/2013 - 10/01/2013 Provider: PIYUSH NICK Diagnosis: CANDIDAL VULVOVA GINITIS one dose po x 1 and rpt. in 3 days Last Documented On 4 1:23PM By PIYUSH NICK ; [facility] Medications Administered Includes: Administered Medications in patient's chart Medications Administered Diagnosis Date Pro vider Ketorolac Tromethamine 60 MG/2ML IM SOLN 09/28/2016 EMELINA ARBOLEDA MD Last Documented On 7 1:08PM By DEVIN MURRAY ; [facility] Results Includes: Results from 10/19/2023 through 10/18/2024 No Results Recorded For Specified Dates History of Present Illness History of Present Illness not supported for this document type No History of Present Illness Recorded Social History Description Last Updated Alcohol use socially 11/03/2018 Last Documented On 9 9:07AM ; [facility] Non-smoker 11/03/2018 Last Documented On 9 9:07AM ; [facility] Not using drugs 11/03/2018 Last Documented On 9 9:07AM ; [facility] Sexually active with 1 partners in the l ast year 11/03/2018 Last Documented On 9 9:07AM ; [facility] Social history unchanged 11/03/2018 Last Documented On 9 9:07AM ; [facility] Smoking status : Former smoker 9 Last Documented On 9 9:07AM ; [facility] Age of 1st intercourse was was 18 2017 Last Documented On 8 3:19PM ; [facility] Procedures and Surgical History Surgical History Last Updated History of tubal ligation 1994 7 Last Documented On 7 3:27PM ; [facility] History of cholecystectomy 09/01/2013 Last Documented On 4 1:24PM ; [facility] Surgical / procedural history BACK SURGE RY 83 09/01/2013 Last Documented On 4 1:24PM ; [facility] Tonsillectomy 09/01/2013 Last Documented On 4 1:24PM ; [facility] Medical History Includes: Medical History in patient's chart Description Last Updated Recent change in medical his tory pt currently has a blood clot in her retina-injections 8 weeks-she said it is resolving 11/03/2018 Last Documented On 9 9:07AM ; [facility] History of Pap smear done 09/13/201710/15 Last Documented On 9 9:07AM ; [facility] Sexually active 11/03/2018 Last Documented On 9 9:07AM ; [facility] History of complete colonoscopy 2017 rep eat in [address] nunes 11/03/2018 Last Documented On 9 9:07AM ; [facility] History of screening mammogram was perfo rmed 09/13/2017 11/03/2018 Last Documented On 9 9:07AM ; [facility] Result: normal 11/03/2018 Last Documented On 9 9:07AM ; [facility] Result: normal 11/03/2018 Last Documented On 9 9:07AM ; [facility] 2 09/13/2017 Last Documented On 8 3:19PM ; [facility] Para 2 09/13/2017 Last Documented On 8 3:19PM ; [facility] Partner with vasectomy 09/13/2017 Last Documented On 8 3:19PM ; [facility] LMP: 2017 09/13/2017 Last Documented On 8 3:19PM ; [facility] Status post tubal ligation 199209/13/19 Last Documented On 8 3:19PM ; [facility] Family History Includes: Family History in patient's chart Description Last Updated Family history unchanged 11/03/2018 Last Documented On 9 9:07AM ; [facility] Maternal history of hypertension parents 11/03/2018 Last Documented On 9 9:07AM ; [facility] Maternal history of malignant female dorothy ast neoplasm pt mother 11/03/2018 Last Documented On 9 9:07AM ; [facility] Paternal history of family history of he art disease DAD 11/03/2018 Last Documented On 9 9:07AM ; [facility] Paternal history of pure hypercholestero lemia father 11/03/2018 Last Documented On 9 9:07AM ; [facility] Family history of malignant female breas t neoplasm pt mother 09/13/2017 Last Documented On 8 3:19PM ; [facility] sister had lung ca 09/09/2015 Last Documented On 6 1:17PM ; [facility] Spouse name: Abner 09/01/2013 Last Documented On 4 1:24PM ; [facility] Family history of hypercholesterolemia f ather 09/01/2013 Last Documented On 4 1:24PM ; [facility] Family history of hypertension parents 0 09/01/2013 Last Documented On 4 1:24PM ; [facility] First child named Nicole 1987 1 Last Documented On 1 4:35PM ; [facility] Second child named Joesph 199101/29/20 11 Last Documented On 1 4:35PM ; [facility] Heart disease DAD 09/04/2010 Last Documented On 1 9:27AM ; [facility] Family history of uterine cancer 010 Last Documented On 0 11:46AM ; [facility] Review of Systems Review of Systems not [...] ent Last Documented On 0 11:34AM ; [facility] Td 1 Complete (Reported) Ania ent Last Documented On 0 11:34AM ; [facility] Allergies Includes: Active, inactive, and resolved Allergies Substance Type Reaction Onset Date Resolved Date Statu s Codeine Allergy Nausea, Vomiting , Diarrhea / Diarrheal disorder 07/23/2010 Active Last Documented On 7 2:51PM ; [facility] Insurance Includes: Active Insurance Policies Plan Name Member ID Group # Subscriber Relationship Effect fritz Dates 1 - [facility] [id number] ABNER ROBERTSON Clinical Notes Includes: Signed Clinical Notes starting from 09/04/2022 No Clinical Notes Recorded
--- OUTSIDE RECORDS SUMMARY | 2024-10-18 07:01 | XMS_ITS | Clinical Summary ---
Author Organization [facility] [address] [place] [id number] Care Team Providers Care Feeder Operator Name Role Phone Les Garber MD Primary Care Provider + [phone] Allergies No known active allergies Medications lansoprazole (PREVACID) 30 mg capsule Take 1 capsule (30 mg total) by mouth daily 12/01/2022 Active aspirin 81 mg enteric coated tablet Take 1 tablet (81 mg total) by mouth daily Active methIMAzole (TAPAZOLE) 5 mg tabletIndicatio ns:Graves' disease Take 0.5 tablets (2.5 mg total) by mouth 4 (four) times a week 24 tablet 1 09/09/2024 5 Active Active Problems Problem Noted Date Diagnosed [...] 02/18/2023 Assessment & Plan (07/25/2024 10:47 AM FURNITURE MECHANIC): chronic, progressively improving reviewed and discussed patient's [...] months Assessment & Plan (06/21/2023 9:06 AM FURNITURE MECHANIC): Chronic, uncontrolled, improving, recent TSH 8, iatrogenic [...] 12/21/2022 Assessment & Plan (06/21/2023 9:06 AM FURNITURE MECHANIC): No compressive symptoms Plan to repeat thyroid [...] 12/21/2022 Assessment & Plan (06/21/2023 9:10 AM FURNITURE MECHANIC): Liver enzymes back to normal range Assessment & Plan (02/18/2023 10:06 AM CDT): Slightly elevated liver function test probably due to underlying uncontrolled hyperthyroidism Slowly improving Continue to monitor Assessment & Plan (12/21/2022 6:46 PM CDT): Noted elevated transaminases levels - suspect due to underlying uncontrolled hyperthyroidism Will continue to monitor closely Notalgia 11/02/2012 Encounters Date Type Department Care Team Description 07/26/2024 Telephone [facility] [place] [facility] [id number] [place] [address] [address], [place] [phone] Dominique Melendez MD Med Management (Methimazole) 07/24/2024 2:00 PM FURNITURE MECHANIC Office Visit [facility] Diabetes and Endocrinology [address] [place] [phone] Dominique Melendez MD Graves' disease (Primary Dx) from Last 3 Months Surgical History Surgery Date Site/Laterality Comments BACK SURGERY 08/16/1982 ENDOMETRIAL ABLATION CHOLECYSTECTOMY TUBAL LIGATION FOOT SURGERY 08/03/2023 Left Medical History Medical History Date Comments Hyperthyroidism Multinodular goiter GERD (gastroesophageal reflux disease) Autoimmune disease Tinnitus Dizziness Nosebleed Family History Medical History [...] on file Legal Sex Female 1:06 AM FURNITURE MECHANIC Gender Identity Female 12/11/2022 3:40 PM CDT Sexual Orientation Not on file Obstetrics History Last Filed Vital Signs Vital Sign Reading Time Taken Comments Blood Pressure 122/80 07/24/2024 1:51 PM FURNITURE MECHANIC Pulse 69 07/24/2024 1:51 PM FURNITURE MECHANIC Temperature - - Respiratory Rate 16 07/24/2024 1:51 PM FURNITURE MECHANIC Oxygen Saturation - - Inhaled Oxygen Concentration - - Weight 74.8 kg (165 lb) 07/24/2024 1:51 PM FURNITURE MECHANIC Height 170.2 cm (5' 7) 07/24/2024 1:51 PM FURNITURE MECHANIC Body Mass Index 25.84 07/24/2024 1:51 PM FURNITURE MECHANIC Plan of Treatment Health Maintenance Due Date Last Done Comments Breast Cancer Screening-Mammogram 1965 Cervical Cancer Screening 1965 Colon Cancer Screening-Colonoscopy 1965 Hepatitis C Screening 1965 Hepatitis B Screening 1983 Regular Well Visit/Exam 18-64 1983 DTaP/Tdap/Td Vaccine (2 - Td or Tdap) 04/12/2023 04/12/2013 Covid-19 Vaccine ( - 2023-2 5 season) 2024 08/05/2021, 11/09/2020, 10/17/2020 Influenza Vaccine (#1) 2024 , 06/01/2017 Depression Screening 01/17/2025 01/18/2024 Pneumococcal vaccine <65 Aged Out 12/04/2020 No longer eligible based on patient's age to complete this topic Zoster Vaccine Completed 07/16/2021, 12/04/2020 Insurance [employer] OPEN ACCESS [employer] OPEN ACCESS Care Teams Feeder Operator Relationship Specialty Start Date End Date Les Garber MD [address] [place] [address] PCP - General Internal Medicine 12/22/22
--- OUTSIDE RECORDS SUMMARY | 2024-10-18 07:01 | XMS_ITS | Clinical Summary ---
Author Organization [facility] Address [address] [place] [address] Phone Care Team Providers Care Him Tech Name Role Phone NIMO QUAN, EZEKIEL Delgadillo Primary Care Provider [phone] DIOGO QUAN, GAGAN C Unavailable [phone] Reason for Visit and Chief Complaint gynecologic annual exam - The Chief Complaint is: Annual Problems Includes: Problems addressed during this encounter and other active Problems Current Visit Onset Date Resolved Date Provider Conditio n Status Ent Disorders 11/03/2018 PIYUSH SOLIS [facility]NP-BC Active Last Documented On 11/03/2018 8:58AM ; [facility] Note: blood clot right eye Past Visits Onset Date Resolved Date Provider Condition Status Gynecologic Services Thermal Endometrial Ablation 09/13/2017 PIYUSH SOLIS WHNP-BC Active Last Documented On 09/13/2017 3:12PM ; [facility] Note: - Dr. 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 PIYUSH SOLIS WHNP-BC Active Last Documented On 07/20/2016 3:00PM ; [facility] Note: + Fibroid Family History 09/05/2014 PIYUSH SOLIS WHNP-BC Active Last Documented On 09/05/2014 2:24PM ; [facility] Note: sister of lung cancer, mother h/o breast cancer Endometriosis 09/28/2012 PIYUSH SOLIS WHNP-BC Active Last Documented On 3 3:59PM ; [facility] Plan of Treatment - Follow-up visit 1 year or as needed - Last Documented On 11/03/2018 9:07AM ; [facility] - Clinical summary provided to patient - Last Documented On 11/03/2018 9:07AM ; [facility] Per new ASCCP guidelines, pap was deferred today. This was d/w pt. and pt. is agreeable to this plan. - Last Documented On 11/03/2018 9:07AM ; [facility] Instructions to patient Instructions for patient : B reast Self Exam discussed Last Documented On 9 8:43AM ; [facility] Education and Decision Aids were provided during visit for: Patient Education: Daily ilir cium and vitamin D Last Documented On 9 8:43AM ; [facility] Patient Education: weight be aring exercise Last Documented On 9 8:43AM ; [facility] Assessments Includes: Assessments from this encounter Findings - NORMAL FEMALE EXAM - Last Documented On 11/03/2018 9:07AM ; [facility] - Screening Malig. Neoplasm Rectum - Last Documented On 11/03/2018 9:07AM ; [facility] Instructions Includes: Instructions from this encounter Instructions to patient Instructions for patient : Breast Self Exam discussed Last Documented On 9 8:43AM ; [facility] Education and Decision Aids were provided during visit for: Patient Education: Daily ilir cium and vitamin D Last Documented On 9 8:43AM ; [facility] Patient Education: weight be aring exercise Last Documented On 9 8:43AM ; [facility] Medical Equipment - Implanted Devices Includes: Current Devices No Medical Equipment Recorded Medications Includes: Medications discussed during this encounter and other current Medications Current Medications (continue as prescribed) Adult Aspirin Regimen 81MG Oral Tablet Delayed Release 11/03/2018 Provider: Diagnosis: Last Documented On 11/03/2018 8:56AM By EDMUND MURRAY ; [facility] CO-Q 10 [place]-3 Fish Oil OR CAPS 09/05/2014 Provider : Diagnosis: Last Documented On 09/05/2014 2:22PM By EDMUND MURRAY ; [facility] Bee Pollen 500 MG OR CHEW 09/05/2014 Provider: Diagnosis: Last Documented On 09/05/2014 2:22PM By EDMUND MURRAY ; [facility] B Complex OR CAPS 09/05/2014 Provider: Diagnosis: Last Documented On 09/05/2014 2:22PM By EDMUND MURRAY ; [facility] Folic Acid 400 MCG OR TABS 09/05/2014 Provider: Diagnosis: Last Documented On 09/05/2014 2:22PM By EDMUND MURRAY ; [facility] Womens Multivitamin Plus OR TABS 08/29/2012 Provider : Diagnosis: Last Documented On 08/29/2012 9:54AM By RADHAMES MURRAY ; [facility] Past Medications on file [place] 5-325 MG Tablet 09/04/2016 - 09/07/2016 Provider : EMELINA ARBOLEDA MD Diagnosis: 1-2 every 4-6 hours as needed Last Documented On 09/04/2016 1:56PM By EMELINA ARBOLEDA MD ; [facility] Flagyl 500 MG Tablet 07/20/2016 - 07/27/2016 Provider: PIYUSH NICK Diagnosis: Acute vaginitis One tablet twice a day Last Documented On 6 3:14PM By PIYUSH NICK ; [facility] Diflucan 150 MG OR TABS 09/01/2013 - 10/01/2013 Provider: PIYUSH NICK Diagnosis: CANDIDAL VULVOVA GINITIS one dose po x 1 and rpt. in 3 days Last Documented On 4 1:23PM By PIYUSH NICK ; [facility] Medications Administered Includes: Administered Medications from this encounter No Administered Medications Recorded Vital Signs Includes: Vital Signs from this encounter Vital Name 11/03/2018 08:50A Blood Pressure Sitting L 132/70 BP Cuff Size Regular Height (in) 66.5 Weight (lb) 168 Body Mass Index (kg/m2) 26.7 Body Surface Area (m2) 1.9 Last Documented: On 11/03/2018 8:53AM ; [facility] Results Includes: Results discussed during this encounter THINPREP TIS AND HPV mRNA E6/E7 [employer] Ordered by PIYUSH NICK on 08/17 Collected: 09/13/2017 Reported: 09/17/19 18 08:58 Last Documented On 8 11:34AM ; [facility] Reviewed by PIYUSH HERNDON on 09/17/2017; All test results are final unless otherwise noted. HPV mRNA E6/E7 Not Detected (Not Detected) N (Normal) Last Documented On 8 11:34AM ; [facility] Note: This test was performed using the APTIMA HPV Assay ([employer]This assay detects E6/E7 viral messenger RNA (mRNA) from 14high-risk HPV types (16,18,31,33,35,39,45,51,52,56,58,59,66,68). SOURCE: Cervix, Endocervix N (Normal) Last Documented On 8 11:34AM ; [facility] CLINICAL INFORMATION: Postmenopausal N (Normal) Last Documented On 8 11:34AM ; [facility] LMP: PM N (Normal) Last Documented On 8 11:34AM ; [facility] PREV. PAP: 2017 N (Normal) Last Documented On 8 11:34AM ; [facility] PREV. BX: NONE N (Normal) Last Documented On 8 11:34AM ; [facility] STATEMENT OF ADEQUACY: Satisfactory for evaluation. Endocervical/transformation zone component present. N (Normal) Last Documented On 8 11:34AM ; [facility] INTERPRETATION/RESULT: Negative for intraepithelial lesion or malignancy. N (Normal) Last Documented On 8 11:34AM ; [facility] COMMENT: This Pap test has been evaluated with computer assisted technology. N (Normal) Last Documented On 8 11:34AM ; [facility] CARDIOLOGY ASSOCIATE: SUPRIYA NUÑEZ(ASCP) CT screening location: [place] [address] [place] [address] N (Normal) Last Documented On 8 11:34AM ; [facility] History of Present Illness Includes: History of Present Illness from this encounter KEMAR ROBERTSON is a 53 year old female. - Medication list reviewed - PRIMARY CARE PROVIDER : Dr Garber - Menopause has occurred Social History Description Last Updated Alcohol use socially 11/03/2018 Last Documented On 9 9:07AM ; [facility] Non-smoker 11/03/2018 Last Documented On 9 9:07AM ; [facility] Not using drugs 11/03/2018 Last Documented On 9 9:07AM ; [facility] Sexually active with 1 partners in the l ast year 11/03/2018 Last Documented On 9 9:07AM ; [facility] Social history unchanged 11/03/2018 Last Documented On 9 9:07AM ; [facility] Smoking status : Former smoker 9 Last Documented On 9 9:07AM ; [facility] Age of 1st intercourse was was 18 2017 Last Documented On 9 8:48AM ; [facility] Procedures and Surgical History Includes: Procedures from this encounter Procedures Code Diagnosis Performing Provider Service L ocation Service Date low fat diet Last Documented On 9 8:44AM ; [facility] fecal occult blood test was negative 18555 Last Documented On 9 8:43AM ; [facility] Surgical History Last Updated History of tubal ligation 1994 7 Last Documented On 9 8:48AM ; [facility] History of cholecystectomy 09/01/2013 Last Documented On 9 8:48AM ; [facility] Surgical / procedural history BACK SURGE RY 83 09/01/2013 Last Documented On 9 8:48AM ; [facility] Tonsillectomy 09/01/2013 Last Documented On 9 8:48AM ; [facility] Medical History Includes: Medical History addressed during this encounter Description Last Updated Recent change in medical his tory pt currently has a blood clot in her retina-injections 8 weeks-she said it is resolving 11/03/2018 Last Documented On 9 9:07AM ; [facility] History of Pap smear done 09/13/201710/15 Last Documented On 9 9:07AM ; [facility] Sexually active 11/03/2018 Last Documented On 9 9:07AM ; [facility] History of complete colonoscopy 2017 rep eat in [address] nunes 11/03/2018 Last Documented On 9 9:07AM ; [facility] History of screening mammogram was perfo rmed 09/13/2017 11/03/2018 Last Documented On 9 9:07AM ; [facility] Result: normal 11/03/2018 Last Documented On 9 9:07AM ; [facility] Result: normal 11/03/2018 Last Documented On 9 9:07AM ; [facility] 2 09/13/2017 Last Documented On 9 8:48AM ; [facility] Para 2 09/13/2017 Last Documented On 9 8:48AM ; [facility] Partner with vasectomy 09/13/2017 Last Documented On 9 8:48AM ; [facility] LMP: 2017 09/13/2017 Last Documented On 9 8:48AM ; [facility] Status post tubal ligation 199209/13/19 18 Last Documented On 9 8:48AM ; [facility] Family History Includes: Family History addressed during this encounter Description Last Updated Family history unchanged 11/03/2018 Last Documented On 9 9:07AM ; [facility] Maternal history of hypertension parents 11/03/2018 Last Documented On 9 9:07AM ; [facility] Maternal history of malignant female dorothy ast neoplasm pt mother 11/03/2018 Last Documented On 9 9:07AM ; [facility] Paternal history of family history of he art disease DAD 11/03/2018 Last Documented On 9 9:07AM ; [facility] Paternal history of pure hypercholestero lemia father 11/03/2018 Last Documented On 9 9:07AM ; [facility] sister had lung ca 09/09/2015 Last Documented On 9 8:48AM ; [facility] Spouse name: Abner 09/01/2013 Last Documented On 9 8:48AM ; [facility] First child named Nicole 1987 1 Last Documented On 9 8:48AM ; [facility] Second child named Joesph 199101/29/20 11 Last Documented On 9 8:48AM ; [facility] Review of Systems Includes: Review [...] Active Last Documented On 7 2:51PM ; [facility] Encounters Encounter Provider Location Date Check-In Time Check-Out Time Diagnosis ANNUAL CONTENT DEVELOPER EXAM PIYUSH SOLIS [facility] EXCELLENCE LEADER 11/04/19 19 8:38AM 9:10AM Screening Malig. Neoplasm Rectum,Normal Female Exam Insurance Includes: Active Insurance Policies Plan Name Member ID Group # Subscriber Relationship Effect fritz Dates 1 - [facility] [id number] ABNER ROBERTSON Clinical Notes Includes: Clinical Notes from this encounter No Clinical Notes Recorded
--- OUTSIDE RECORDS SUMMARY | 2024-10-18 07:01 | XMS_ITS | Clinical Summary ---
Author Organization [facility] Address [address] [place] [address] Phone Care Team Providers Care Direct Entry Midwife Name Role Phone NIMO QUAN, EZEKIEL Delgadillo Primary Care Provider [phone] DIOGO QUAN, GAGAN C Unavailable [phone] Reason for Visit and Chief Complaint The Chief Complaint is: annual Problems Includes: Problems addressed during this encounter and other active Problems Current Visit Onset Date Resolved Date Provider Conditio n Status Gynecologic Services Thermal Endometrial Ablation 09/13/2017 PIYUSH SOLIS WHNP-BC Active Last Documented On 09/13/2017 3:12PM ; [facility] Note: - Dr. 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 PIYUSH SOLIS WHNP-BC Active Last Documented On 07/20/2016 3:00PM ; [facility] Note: + Fibroid Family History 09/05/2014 PIYUSH SOLIS WHNP-BC Active Last Documented On 09/05/2014 2:24PM ; [facility] Note: sister of lung cancer, mother h/o breast cancer Endometriosis 09/28/2012 PIYUSH SOLIS WHNP-BC Active Last Documented On 3 3:59PM ; [facility] Plan of Treatment - Follow-up visit 1 year or as needed - Last Documented On 09/13/2017 3:19PM ; [facility] - Clinical summary provided to patient - Last Documented On 09/13/2017 3:19PM ; [facility] Instructions to patient Instructions for patient : B reast Self Exam discussed Last Documented On 8 3:11PM ; [facility] Lose weight Last Documented On 8 3:11PM ; [facility] Colonoscopy Handout given to patient Last Documented On 8 3:11PM ; [facility] Education and Decision Aids were provided during visit for: Patient Education: Daily ilir cium and vitamin D Last Documented On 8 3:11PM ; [facility] Patient Education: weight be aring exercise Last Documented On 8 3:11PM ; [facility] Assessments Includes: Assessments from this encounter Findings - NORMAL FEMALE EXAM - Last Documented On 09/13/2017 3:19PM ; [facility] - Screening Malig. Neoplasm Rectum - Last Documented On 09/13/2017 3:19PM ; [facility] Instructions Includes: Instructions from this encounter Instructions to patient Instructions for patient : B reast Self Exam discussed Last Documented On 8 3:11PM ; [facility] Lose weight Last Documented On 8 3:11PM ; [facility] Colonoscopy Handout given to patient Last Documented On 8 3:11PM ; [facility] Education and Decision Aids were provided during visit for: Patient Education: Daily ilir cium and vitamin D Last Documented On 8 3:11PM ; [facility] Patient Education: weight be aring exercise Last Documented On 8 3:11PM ; [facility] Medical Equipment - Implanted Devices Includes: Current Devices No Medical Equipment Recorded Medications Includes: Medications discussed during this encounter and other current Medications Discontinued / Stopped on this date on 09/04/2016 Calcium 500 MG Tablet Provider: Diagnosis: Last Documented On 09/13/2017 3:09PM By EDMUND MURRAY ; [facility] Current Medications (continue as prescribed) Adult Aspirin Regimen 81MG Oral Tablet Delayed Release 11/03/2018 Provider: Diagnosis: Last Documented On 11/03/2018 8:56AM By EDMUND MURRAY ; [facility] CO-Q 10 [place]-3 Fish Oil OR CAPS 09/05/2014 Provider : Diagnosis: Last Documented On 09/05/2014 2:22PM By EDMUND MURRAY ; [facility] Bee Pollen 500 MG OR CHEW 09/05/2014 Provider: Diagnosis: Last Documented On 09/05/2014 2:22PM By EDMUND MURRAY ; [facility] B Complex OR CAPS 09/05/2014 Provider: Diagnosis: Last Documented On 09/05/2014 2:22PM By EDMUND MURRAY ; [facility] Folic Acid 400 MCG OR TABS 09/05/2014 Provider: Diagnosis: Last Documented On 09/05/2014 2:22PM By EDMUND MURRAY ; [facility] Womens Multivitamin Plus OR TABS 08/29/2012 Provider : Diagnosis: Last Documented On 08/29/2012 9:54AM By RADHAMES MURRAY ; [facility] Past Medications on file [place] 5-325 MG Tablet 09/04/2016 - 09/07/2016 Provider : EMELINA ARBOLEDA MD Diagnosis: 1-2 every 4-6 hours as needed Last Documented On 09/04/2016 1:56PM By EMELINA ARBOLEDA MD ; [facility] Flagyl 500 MG Tablet 07/20/2016 - 07/27/2016 Provider: PIYUSH ALMANZAR Diagnosis: Acute vaginitis One tablet twice a day Last Documented On 6 3:14PM By PIYUSH NICK ; [facility] Diflucan 150 MG OR TABS 09/01/2013 - 10/01/2013 Provider: PIYUHS ALMANZARBC Diagnosis: CANDIDAL VULVOVA GINITIS one dose po x 1 and rpt. in 3 days Last Documented On 4 1:23PM By PIYUSH NICK ; [facility] Medications Administered Includes: Administered Medications from this encounter No Administered Medications Recorded Vital Signs Includes: Vital Signs from this encounter Vital Name 09/13/2017 03:09P 09/13/2017 03: 05P Blood Pressure Sitting (mmHg) 112/70 Height (in) 66.5 67 Weight (lb) 167 Body Mass Index (kg/m2) 26.6 Body Surface Area (m2) 1.9 Last Documented: On 09/13/2017 3:10PM ; [facility] On 09/13/2017 3:07PM ; [facility] Results Includes: Results discussed during this encounter THINPREP TIS AND HPV mRNA E6/E7 [employer] Ordered by PIYUSH NICK on 08/17 Collected: 09/11/2016 Reported: 09/17/19 17 10:14 Last Documented On 7 10:31AM ; [facility] Reviewed by PIYUSH HERNDON on 09/17/2016; All test results are final unless otherwise noted. HPV mRNA E6/E7 Not Detected (Not Detected) N (Normal) Last Documented On 7 10:31AM ; [facility] Note: This test was performed using the APTIMA HPV Assay ([employer]This assay detects E6/E7 viral messenger RNA (mRNA) from 14high-risk HPV types (16,18,31,33,35,39,45,51,52,56,58,59,66,68). SOURCE: Cervix, Endocervix N (Normal) Last Documented On 7 10:31AM ; [facility] CLINICAL INFORMATION: Routine exam N (Normal) Last Documented On 7 10:31AM ; [facility] LMP: 1-11-17 N (Normal) Last Documented On 7 10:31AM ; [facility] PREV. PAP: 2014 N (Normal) Last Documented On 7 10:31AM ; [facility] PREV. BX: NONE N (Normal) Last Documented On 7 10:31AM ; [facility] STATEMENT OF ADEQUACY: Satisfactory for evaluation. Endocervical/transformation zone component present. N (Normal) Last Documented On 7 10:31AM ; [facility] INTERPRETATION/RESULT: Negative for intraepithelial lesion or malignancy. N (Normal) Last Documented On 7 10:31AM ; [facility] COMMENT: This Pap test has been evaluated with computer assisted technology. N (Normal) Last Documented On 7 10:31AM ; [facility] GAMEPLAY ENGINEER: SUPRIYA DAILEY(ASCP) CT screening location: [place] [address] [place] [address] N (Normal) Last Documented On 7 10:31AM ; [facility] History of Present Illness Includes: History of Present Illness from this encounter No History of Present Illness Recorded Social History Description Last Updated Age of 1st intercourse was was 18 2017 Last Documented On 8 3:19PM ; [facility] Alcohol use: 2 drinks or less per day oc c 09/13/2017 Last Documented On 8 3:19PM ; [facility] Alcohol use: 2 drinks or less per day Last Documented On 8 3:19PM ; [facility] Non-smoker 09/13/2017 Last Documented On 8 3:19PM ; [facility] Sexually active 09/13/2017 Last Documented On 8 3:19PM ; [facility] Smoking Status Unknown Procedures and Surgical History Includes: Procedures from this encounter Procedures Code Diagnosis Performing Provider Service L ocation Service Date low fat diet Last Documented On 8 3:11PM ; [facility] fecal occult blood test was negative 95962 Last Documented On 8 3:11PM ; [facility] Cervical Pap Smear performed Q0091 Last Documented On 8 3:18PM ; [facility] Surgical History Last Updated History of tubal ligation 1994 7 Last Documented On 8 3:05PM ; [facility] History of cholecystectomy 09/01/2013 Last Documented On 8 3:05PM ; [facility] Surgical / procedural history BACK SURGE RY 83 09/01/2013 Last Documented On 8 3:05PM ; [facility] Tonsillectomy 09/01/2013 Last Documented On 8 3:05PM ; [facility] Medical History Includes: Medical History addressed during this encounter Description Last Updated 2 09/13/2017 Last Documented On 8 3:19PM ; [facility] Para 2 09/13/2017 Last Documented On 8 3:19PM ; [facility] Partner with vasectomy 09/13/2017 Last Documented On 8 3:19PM ; [facility] LMP: 2017 09/13/2017 Last Documented On 8 3:19PM ; [facility] Patient recently had a dexa scan none Last Documented On 8 3:19PM ; [facility] Status post tubal ligation 199209/13/19 18 Last Documented On 8 3:19PM ; [facility] A colonoscopy was performed 2015 018 Last Documented On 8 3:19PM ; [facility] Contraception: had a vasectomy 0 09/13/2017 Last Documented On 8 3:19PM ; [facility] Last mammogram date: 09/11/2016 8 Last Documented On 8 3:19PM ; [facility] Last pap smear date 09/01/2013 09/13/2017 Last Documented On 8 3:19PM ; [facility] Family History Includes: Family History addressed during this encounter Description Last Updated Family history of malignant female breas t neoplasm pt mother 09/13/2017 Last Documented On 8 3:19PM ; [facility] Review of Systems Includes: Review of [...] Active Last Documented On 7 2:51PM ; [facility] Encounters Encounter Provider Location Date Check-In Time Check-Out Time Diagnosis ANNUAL LIVE AMMUNITION INSPECTOR EXAM PIYUSH SOLIS [facility] PASSENGER CONDUCTOR 09/13/19 18 3:00PM 3:21PM Screening Malig. Neoplasm Rectum,Normal Female Exam Insurance Includes: Active Insurance Policies Plan Name Member ID Group # Subscriber Relationship Effect fritz Dates 1 - [facility] [id number] FRANCY ROBERTSON Clinical Notes Includes: Clinical Notes from this encounter No Clinical Notes Recorded
--- OUTSIDE RECORDS SUMMARY | 2024-10-18 07:01 | XMS_ITS | Clinical Summary ---
Author Organization [facility] Address [address] [place] [address] Phone Care Team Providers Care Home Appliance Washing Machine Mechanic Name Role Phone NIMO QUAN, EZEKIEL Delgadillo Primary Care Provider [phone] DIOGO QUAN, GAGAN C Unavailable [phone] Reason for Visit and Chief Complaint The Chief Complaint is: Novasure, The Chief Complaint is: In office Novasure. Toradol injection given IM Right Glut, pt tolerated well, no adverse reaction, Lot#[id number] Exp Problems Includes: Problems addressed during this encounter and other active Problems All Visits Onset Date Resolved Date Provider Condition S tatus Ent Disorders 11/03/2018 PIYUSH SOLIS WHNP-BC Active Last Documented On 11/03/2018 8:58AM ; [facility] Note: blood clot right eye Gynecologic Services Thermal Endometrial Ablation 09/13/2017 PIYUSH SOLIS WHNP-BC Active Last Documented On 09/13/2017 3:12PM ; [facility] Note: -2016 - Dr. 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 - Last Documented On 09/28/2016 3:59PM ; [facility] Pending Tests Order Diagnosis Results Due Ordering P rovider Injections Theraputic Injection Excessive a nd frequent menstruation with regular cycle 09/28/16 EMELINA ARBOLEDA MD Last Documented On 7 3:59PM ; [facility] Injections Toradol Excessive and fr equent menstruation with regular cycle 09/28/16 EMELINA ARBOLEDA MD Last Documented On 7 3:59PM ; [facility] In office procedures - OB Novasure Excessive and frequent menstruation with regular cycle 10/12/16 EMELINA ARBOLEDA MD Last Documented On 7 3:59PM ; [facility] Assessments Includes: Assessments from this encounter Findings - Menorrhagia - Last Documented On 09/28/2016 3:59PM ; [facility] Medical Equipment - Implanted Devices Includes: Current Devices No Medical Equipment Recorded Medications Includes: Medications discussed during this encounter and other current Medications Current Medications (continue as prescribed) Adult Aspirin Regimen 81MG Oral Tablet Delayed Release 11/03/2018 Provider: Diagnosis: Last Documented On 11/03/2018 8:56AM By EDMUND MURRAY ; [facility] CO-Q 10 [place]-3 Fish Oil OR CAPS 09/05/2014 Provider : Diagnosis: Last Documented On 09/05/2014 2:22PM By EDMUND MURRAY ; [facility] Bee Pollen 500 MG OR CHEW 09/05/2014 Provider: Diagnosis: Last Documented On 09/05/2014 2:22PM By EDMUND MURRAY ; [facility] B Complex OR CAPS 09/05/2014 Provider: Diagnosis: Last Documented On 09/05/2014 2:22PM By EDMUND MURRAY ; [facility] Folic Acid 400 MCG OR TABS 09/05/2014 Provider: Diagnosis: Last Documented On 09/05/2014 2:22PM By EDMUND MURRAY ; [facility] Womens Multivitamin Plus OR TABS 08/29/2012 Provider : Diagnosis: Last Documented On 08/29/2012 9:54AM By RADHAMES MURRAY ; [facility] Past Medications on file [place] 5-325 MG Tablet 09/04/2016 - 09/07/2016 Provider : EMELINA ARBOLEDA MD Diagnosis: 1-2 every 4-6 hours as needed Last Documented On 09/04/2016 1:56PM By EMELINA ARBOLEDA MD ; [facility] Flagyl 500 MG Tablet 07/20/2016 - 07/27/2016 Provider: PIYUSH NICK Diagnosis: Acute vaginitis One tablet twice a day Last Documented On 6 3:14PM By PIYUSH NICK ; [facility] Diflucan 150 MG OR TABS 09/01/2013 - 10/01/2013 Provider: PIYUSH NICK Diagnosis: CANDIDAL VULVOVA GINITIS one dose po x 1 and rpt. in 3 days Last Documented On 4 1:23PM By PIYUSH NICK ; [facility] Medications Administered Includes: Administered Medications from this encounter Medications Administered Diagnosis Date Pro vider Ketorolac Tromethamine 60 MG/2ML IM SOLN 09/28/2016 EMELINA ARBOLEDA MD Last Documented On 7 1:08PM By DEVIN MURRAY ; [facility] Vital Signs Includes: Vital Signs from this encounter Vital Name 09/28/2016 02:20P 09/28/2016 12:35P 09/28 12:34P Blood Pressure Sitting (mmHg) 130/70 130/78 Pulse Rate-Sitting (bpm) 80 72 Height (in) 67 67 Weight (lb) 158.8 Body Mass Index (kg/m2) 24.9 Body Surface Area (m2) 1.8 Last Documented: On 09/28/2016 2:20PM ; [facility] On 09/28/2016 12:40PM ; [facility] On 09/28/2016 12:34PM ; [facility] Results Includes: Results discussed during this encounter No Results Recorded For Specified Dates History of Present Illness Includes: History of Present Illness from this encounter No History of Present Illness Recorded Social History Description Last Updated Alcohol use: 2 drinks or less per day oc c 09/28/2016 Last Documented On 7 3:59PM ; [facility] Non-smoker 09/28/2016 Last Documented On 7 3:59PM ; [facility] Sexually active 09/28/2016 Last Documented On 7 3:59PM ; [facility] Smoking Status Unknown Procedures and Surgical History Includes: Procedures from this encounter Procedures Code Diagnosis Performing Provider Service L ocation Service Date Clinical summary provided to patient Last Documented On 7 1:34PM ; [facility] Surgical History Last Updated History of tubal ligation 1994 7 Last Documented On 7 3:59PM ; [facility] Medical History Includes: Medical History addressed during this encounter Description Last Updated Last mammogram date: 09/11/2016 7 Last Documented On 7 3:59PM ; [facility] LMP: 09/18/2016 09/28/2016 Last Documented On 7 3:59PM ; [facility] Contraception: vasecetomy, tubal 017 Last Documented On 7 3:59PM ; [facility] 2 09/28/2016 Last Documented On 7 3:59PM ; [facility] Last pap smear date 09/11/2016 09/28/2016 Last Documented On 7 3:59PM ; [facility] Para 2 09/28/2016 Last Documented On 7 3:59PM ; [facility] Family History Includes: Family History addressed during this encounter Description Last Updated Maternal history of hypertension parents 11/03/2018 Last Documented On 7 12:33PM ; [facility] Paternal history of family history of he art disease DAD 11/03/2018 Last Documented On 7 12:33PM ; [facility] Paternal history of pure hypercholestero lemia father 11/03/2018 Last Documented On 7 12:33PM ; [facility] Family history of malignant female breast neoplasm mother at age 63-mastectomy and chemo 09/13/2017 Last Documented On 7 12:33PM ; [facility] sister had lung ca 09/09/2015 Last Documented On 7 12:33PM ; [facility] Spouse name: Abner 09/01/2013 Last Documented On 7 12:33PM ; [facility] Family history of hypercholesterolemia f ather 09/01/2013 Last Documented On 7 12:33PM ; [facility] Family history of hypertension parents 0 09/01/2013 Last Documented On 7 12:33PM ; [facility] First child named Nicole 1987 1 Last Documented On 7 12:33PM ; [facility] Second child named Joesph 199101/29/20 11 Last Documented On 7 12:33PM ; [facility] Heart disease DAD 09/04/2010 Last Documented On 7 12:33PM ; [facility] Family history of uterine cancer 010 Last Documented On 7 12:33PM ; [facility] Review of Systems Includes: Review [...] Active Last Documented On 7 2:51PM ; [facility] Encounters Encounter Provider Location Date Check-In Time Check-Out Time Diagnosis PROCEDURE OFFICE EMELINA ARBOLEDA MD [facility] RASCHEL KNITTING MACHINE OPERATOR 09/28/19 17 12:30PM 2:19PM Menorrhagia Insurance Includes: Active Insurance Policies Plan Name Member ID Group # Subscriber Relationship Effect fritz Dates 1 - [facility] [id number] ABNER ROBERTSON Clinical Notes Includes: Clinical Notes from this encounter No Clinical Notes Recorded
--- OUTSIDE RECORDS SUMMARY | 2024-10-18 07:01 | XMS_ITS | Clinical Summary ---
Author Organization [facility] Address [address] [place] [address] Phone Care Team Providers Care Ampoule Filler And Sealer Name Role Phone Les Garber MD Primary [...] on file Legal Sex Female 2:26 PM FUSION OPERATOR Gender Identity Not on file Sexual Orientation Not on file Last Filed Vital Signs Vital Sign Reading Time Taken Comments Blood Pressure 144/79 06/29/2019 3:15 PM FUSION OPERATOR Pulse 82 06/29/2019 3:15 PM FUSION OPERATOR Temperature 36.4 C (97.5 F) 06/29/2019 3:15 PM FUSION OPERATOR Respiratory Rate - - Oxygen Saturation 98% 06/29/2019 3:15 PM FUSION OPERATOR Inhaled Oxygen Concentration - - Weight 74.5 kg (164 lb 4.8 oz) 06/29/2019 3:15 P M FUSION OPERATOR Height 170.2 cm (5' 7) 06/29/2019 3:15 PM FUSION OPERATOR Body Mass Index 25.73 06/29/2019 3:15 PM FUSION OPERATOR Plan of Treatment Health Maintenance Due Date [...] INFLUENZA VACCINE (#1) 2024 06/01/2017 PNEUMOCOCCAL VACCINE 0-49 YEARS Aged Out No longer eligible based on patient's age to complete this topic Insurance [address] [id number] Care Teams Ampoule Filler And Sealer Relationship Specialty Start Date End Date Les Garber MD [address] [place] [id number] PCP - General Internal Medicine 12/29/18
--- OUTSIDE RECORDS SUMMARY | 2024-10-18 07:01 | XMS_ITS | Clinical Summary ---
Author Organization [facility] Address [address] [place] [address] Phone Care Team Providers Care Filteration Operator Name Role Phone NIMO QUAN, EZEKIEL Delgadillo Primary Care Provider [phone] DIOGO QUAN, GAGAN C Unavailable [phone] Reason for Visit and Chief [...] Last Documented On 11/03/2018 8:58AM ; [facility] Note: blood clot right eye Gynecologic Services Thermal Endometrial Ablation 09/13/2017 PIYUSH SOLIS WHNP-BC Active Last Documented On 09/13/2017 3:12PM ; [facility] Note: - Dr. 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 PIYUSH SOLIS WHNP-BC Active Last Documented On 07/20/2016 3:00PM ; [facility] Note: + Fibroid Family History 09/05/2014 PIYUSH SOLIS WHNP-BC Active Last Documented On 09/05/2014 2:24PM ; [facility] Note: sister of lung cancer, mother h/o breast cancer Endometriosis 09/28/2012 PIYUSH SOLIS WHNP-BC Active Last Documented On 3 3:59PM ; [facility] Plan of Treatment - Follow-up visit 1 year or as needed - Last Documented On 09/11/2016 2:31PM ; [facility] - Clinical summary provided to patient - Last Documented On 09/11/2016 2:31PM ; [facility] Instructions to patient Instructions for patient : B reast Self Exam discussed Last Documented On 7 2:18PM ; [facility] Colonoscopy Handout given to patient Last Documented On 7 2:19PM ; [facility] Education and Decision Aids were provided during visit for: Patient Education: Daily ilir cium and vitamin D Last Documented On 7 2:18PM ; [facility] Patient Education: weight be aring exercise Last Documented On 7 2:18PM ; [facility] Assessments Includes: Assessments from this encounter Findings - NORMAL FEMALE EXAM - Last Documented On 09/11/2016 2:31PM ; [facility] - Screening Malig. Neoplasm Rectum - Last Documented On 09/11/2016 2:31PM ; [facility] Instructions Includes: Instructions from this encounter Instructions to patient Instructions for patient : B reast Self Exam discussed Last Documented On 7 2:18PM ; [facility] Colonoscopy Handout given to patient Last Documented On 7 2:19PM ; [facility] Education and Decision Aids were provided during visit for: Patient Education: Daily ilir cium and vitamin D Last Documented On 7 2:18PM ; [facility] Patient Education: weight be aring exercise Last Documented On 7 2:18PM ; [facility] Medical Equipment - Implanted Devices Includes: Current Devices No Medical Equipment Recorded Medications Includes: Medications discussed during this encounter and other current Medications Current Medications (continue as prescribed) Adult Aspirin Regimen 81MG Oral Tablet Delayed Release 11/03/2018 Provider: Diagnosis: Last Documented On 11/03/2018 8:56AM By EDMUND MURRAY ; [facility] CO-Q 10 [place]-3 Fish Oil OR CAPS 09/05/2014 Provider : Diagnosis: Last Documented On 09/05/2014 2:22PM By EDMUND MURRAY ; [facility] Bee Pollen 500 MG OR CHEW 09/05/2014 Provider: Diagnosis: Last Documented On 09/05/2014 2:22PM By EDMUND MURRAY ; [facility] B Complex OR CAPS 09/05/2014 Provider: Diagnosis: Last Documented On 09/05/2014 2:22PM By EDMUND MURRAY ; [facility] Folic Acid 400 MCG OR TABS 09/05/2014 Provider: Diagnosis: Last Documented On 09/05/2014 2:22PM By EDMUND MURRAY ; [facility] Womens Multivitamin Plus OR TABS 08/29/2012 Provider : Diagnosis: Last Documented On 08/29/2012 9:54AM By RADHAMES MURRAY ; [facility] Past Medications on file [place] 5-325 MG Tablet 09/04/2016 - 09/07/2016 Provider : EMELINA ARBOLEDA MD Diagnosis: 1-2 every 4-6 hours as needed Last Documented On 09/04/2016 1:56PM By EMELINA ARBOLEDA MD ; [facility] Flagyl 500 MG Tablet 07/20/2016 - 07/27/2016 Provider: PIYUSH ALMANZAR Diagnosis: Acute vaginitis One tablet twice a day Last Documented On 6 3:14PM By PIYUSH NICK ; [facility] Diflucan 150 MG OR TABS 09/01/2013 - 10/01/2013 Provider: PIYUSH NICK Diagnosis: CANDIDAL VULVOVA GINITIS one dose po x 1 and rpt. in 3 days Last Documented On 4 1:23PM By PIYUSH NICK ; [facility] Medications Administered Includes: Administered Medications from this encounter No Administered Medications Recorded Vital Signs Includes: Vital Signs from this encounter Vital Name 09/11/2016 02:18P 09/11/2016 02: 17P Blood Pressure Sitting L 110/64 BP Cuff Size Regular Height (in) 67 67 Weight (lb) 159 Body Mass Index (kg/m2) 24.9 Body Surface Area (m2) 1.8 Last Documented: On 09/11/2016 2:20PM ; [facility] On 09/11/2016 2:17PM ; [facility] Results Includes: Results discussed during this [...] 2017 Last Documented On 7 2:17PM ; [facility] Alcohol use: 2 drinks or less per day so cially 09/13/2017 Last Documented On 7 2:17PM ; [facility] Alcohol use socially 09/11/2016 Last Documented On 7 2:31PM ; [facility] In monogamous relationship 09/11/2016 Last Documented On 7 2:31PM ; [facility] Non-smoker 09/11/2016 Last Documented On 7 2:31PM ; [facility] Not using drugs 09/11/2016 Last Documented On 7 2:31PM ; [facility] Sexually active with 1 partners in the l ast year 09/11/2016 Last Documented On 7 2:31PM ; [facility] Social history unchanged 09/11/2016 Last Documented On 7 2:31PM ; [facility] Smoking status : Former smoker Last Documented On 7 2:31PM ; [facility] Procedures and Surgical History Includes: Procedures from this encounter Procedures Code Diagnosis Performing Provider Service L ocation Service Date low fat diet Last Documented On 7 2:19PM ; [facility] fecal occult blood test was negative 34983 Last Documented On 7 2:18PM ; [facility] normal history of Pap smear of cervix Last Documented On 7 2:22PM ; [facility] Cervical Pap Smear performed [id number] Last Documented On 7 2:19PM ; [facility] Surgical History Last Updated History of tubal ligation 10/12/2016 Last Documented On 7 2:17PM ; [facility] History of cholecystectomy 09/01/2013 Last Documented On 7 2:17PM ; [facility] Surgical / procedural history BACK SURGE RY 83 09/01/2013 Last Documented On 7 2:17PM ; [facility] Tonsillectomy 09/01/2013 Last Documented On 7 2:17PM ; [facility] Medical History Includes: Medical History addressed during this encounter Description Last Updated 2 09/13/2017 Last Documented On 7 2:17PM ; [facility] Para 2 09/13/2017 Last Documented On 7 2:17PM ; [facility] Partner with vasectomy 09/13/2017 Last Documented On 7 2:17PM ; [facility] LMP: 08/26/2016 09/11/2016 Last Documented On 7 2:31PM ; [facility] Vaginal delivery 09/11/2016 Last Documented On 7 2:31PM ; [facility] No recent change in medical history 08/17 Last Documented On 7 2:31PM ; [facility] History of complete colonoscopy 2015 [facility]. repeat in 10 years 09/11/2016 Last Documented On 7 2:31PM ; [facility] Sexually active 09/11/2016 Last Documented On 7 2:31PM ; [facility] History of Pap smear done 09/01/201308/17 Last Documented On 7 2:31PM ; [facility] History of screening mammogram was perfo rmed 09/09/2015 09/11/2016 Last Documented On 7 2:31PM ; [facility] Result: normal 09/11/2016 Last Documented On 7 2:31PM ; [facility] Result: normal 09/11/2016 Last Documented On 7 2:31PM ; [facility] Family History Includes: Family History addressed during this encounter Description Last Updated Family history unchanged 09/11/2016 Last Documented On 7 2:31PM ; [facility] Maternal history of hypertension parents 09/11/2016 Last Documented On 7 2:31PM ; [facility] Maternal history of malignan t female breast neoplasm mother at age 63-mastectomy and chemo 09/11/2016 Last Documented On 7 2:31PM ; [facility] Paternal history of family history of he art disease DAD 09/11/2016 Last Documented On 7 2:31PM ; [facility] Paternal history of pure hypercholestero lemia father 09/11/2016 Last Documented On 7 2:31PM ; [facility] sister had lung ca 09/09/2015 Last Documented On 7 2:17PM ; [facility] Spouse name: Abner 09/01/2013 Last Documented On 7 2:17PM ; [facility] First child named Nicole 1987 1 Last Documented On 7 2:17PM ; [facility] Second child named Joesph 199101/29/20 11 Last Documented On 7 2:17PM ; [facility] Review of Systems Includes: Review of [...] Active Last Documented On 7 2:51PM ; [facility] Encounters Encounter Provider Location Date Check-In Time Check-Out Time Diagnosis TRANSMISSION MECHANIC EXAM PIYUSH SOLIS [facility]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 Neoplasm Rectum,Normal Female Exam Insurance Includes: Active Insurance Policies Plan Name Member ID Group # Subscriber Relationship Effect fritz Dates 1 - [facility] [id number] ABNER ROBERTSON Clinical Notes Includes: Clinical Notes from this encounter No Clinical Notes Recorded
[2024-10-18 09:10] LABS: Free T4 Free Thyroxine 1.12 ng/dL (0.78-2.19)
[2024-10-18 09:49] LABS: Free T3 3.31 pg/mL (2.71-6.16)
[2024-12-20 09:48] LABS: Free T3 3.15 pg/mL (2.71-6.16)
== END 2025-01-16 23:59 | disposition home or self-care (01) ==
LOC: ANHLAB 07:15
PROVIDERS: PCP Internal Medicine; Visit Provider Internal Medicine Endocrinology, Diabetes & Metabolism
DX: E05.00 Thyrotoxicosis with diffuse goiter without thyrotoxic crisis or storm (principal)
CPT/HCPCS: 36415; 84439; 84443; 84481

== ENCOUNTER 2025-02-12 15:09 | Outpatient (CLI) | payer OTHER, SELFPAY ==
--- NOTE | ~2025-02-12 | XR_ITS ---
XR ankle LT min 3V Ordering provider: Les Garber MD History: . ANKLE INJURY WITH PAIN . Comparison: None. FINDINGS: BONES: Fracture at the tip of the lateral malleolus. Postoperative changes in the first metatarsal bone. JOINT SPACES: The ankle mortise is normal. SOFT TISSUES: Soft tissue swelling over the lateral malleolus. Calcaneal spur. IMPRESSION: Undisplaced fracture in the lateral malleolus.. Reviewed, dictated and finalized at location A.
--- NOTE | ~2025-02-12 | XR_ITS ---
HISTORY: ANKLE INJURY WITH PAIN COMPARISON: 01/20/2021 TECHNIQUE: 3 views of the left foot were performed FINDINGS: No acute fracture or dislocation is appreciated. Fixation hardware within the base of the first metatarsal as well as the proximal phalanx of the grea t toe. Incidental notation is made of os trigonum. The base of the fifth metatarsal is intact. Small calcaneal spur is noted. No significant soft tissue swelling is present. IMPRESSION: Degenerative disease without acute fracture deformity, as detailed above. Reviewed, dictated and finalized at location A.
--- OUTSIDE RECORDS SUMMARY | 2025-02-12 15:14 | XMS_ITS | Referral Summary ---
Author Organization [facility] Physician Office Building [address] [place] [id number] Care Team Providers Care Circuit Court Judge Name Role Phone Les Garber MD Primary Care Provider [phone] Encounters Date Type Department Care Team Description 02/09/2025 Results Follow-Up [facility] Gastroenterology [address] [facility] Advanced Medicine 12th [place] [address] [place] [address] Nargis Camp PA Surgical pathology 02/06/2025 8:48 AM CDT Anesthesia Event [facility] [place] [address] [facility] [address] [place] [address] Damon Curran MD Hubbard, Gary Lee, CRNA 02/06/2025 9:00 AM CDT - 02/06/2025 10:00 AM CDT Surgery [facility] [place] [address] [facility] [address] [place] [address] Eleazar Nath MD COLON REMOVAL SNARE 02/06/2025 7:31 AM CDT - 02/06/2025 10:08 AM CDT Hospital Encounter [facility] [place] [address] [facility] [address] [place] [address] Eleazar Nath MD Nausea and vomiting, unspecified vomiting type; Right upper quadrant pain; Epigastric pain; Gastroesophageal reflux disease, unspecified whether esophagitis present; Colon cancer screening Discharge Disposition: Discharge to home or self care 02/01/2025 Telephone [facility] Specialty Services [address] [place] [address] Rachel Alston RN GI PROCEDURE 3 DAY PRE CALL 01/30/2025 Telephone [facility] Specialty Services [address] [place] [address] Rachel Alston RN GI PROCEDURE 7 DAY PRE CALL 01/02/2025 7:30 AM CDT - 01/02/2025 11:59 PM CDT Hospital Encounter [facility] [address] [place] [id number] Epigastric pain; Nausea and vomiting, unspecified vomiting type Discharge Disposition: Discharge to home or self care 12/22/2024 Tele[place] [facility] [place] [address], [place] [address] Dominiuqe Melendez MD 12/19/2024 Orders Only [facility] Gastroenterology [address] [place] [address] [address]nd [address] [place] [phone] Kimberly Rowe LPN 12/19/2024 Documentation [facility] Gastroenterology [address] [place] [address] [address] [place] [phone] Kimberly Rowe, [employer]IPPER [employer] PRINTER GI ASSESSMENT 12/18/2024 Orders Only [facility] Gastroenterology [address] [place] [address] [address] [place] [phone] Kimberly Rowe [employer]IPPER [employer]INTER Nausea and vomiting, unspecified vomiting type (Primary Dx); Right upper quadrant pain; Epigastric pain; Gastroesophageal reflux disease, unspecified whether esophagitis present; Colon cancer screening 12/15/2024 Results Follow-Up [facility] Gastroenterology [address] [place] [address] Advanced Medicine 12th [place] [address] [place] [address] Nargis Camp PA IgA, Tissue transglutaminase IgA (TGG-IgA Ab), Hepatic function panel, Additional followed-up results: 3 12/13/2024 6:00 PM CDT Lab [facility] ([facility]) [address] [place] [address] Epigastric pain; Nausea and vomiting, unspecified vomiting type 12/13/2024 2:20 PM CDT Office Visit [facility] Gastroenterology [address] [facility] 12th [place] [address] [place] [address] Nargis Camp PA Nausea and vomiting, unspecified vomiting type (Primary Dx); Right upper quadrant pain; Epigastric pain; Gastroesophageal reflux disease, unspecified whether esophagitis present; Constipation, unspecified constipation type; Colon cancer screening 11/30/2024 Telephone [facility] Gastroenterology [facility] 12th [place] [address] [place] [address] Bolivar Foley CMA from Last 3 Months Allergies No known active allergies Medications aspirin 81 mg enteric coated tablet Take 1 tablet (81 mg total) by mouth daily Active MAGNESIUM ORAL Take by mouth 450MG QD Active omeprazole (PriLOSEC) 40 mg capsuleIndicat ions:Treatment of Non-Bleeding Gastric Disorder Take 1 capsule (40 mg total) by mouth 2 (two) times a day 60 capsule 3 5 025 Active methIMAzole (TAPAZOLE) 5 mg tabletIndicati ons:Graves' disease Take 1/2 tablet by mouth 4 times a week. 24 tablet 2 5 Active multivitamin tabletIndicati ons:Vitamin Deficiency Prevention Take 1 tablet by mouth Active krill oil 500 mg capsule Take 1,000 mg by mouth Active sodium, potassium & mag sulfates (SUPREP BOWEL KIT) 17.5-3.13-1.6 gram recon solnIndication s:Bowel Evacuation Follow Mychart instructions from Dr. Nath's office, do not follow instructions on package. For any questions call [phone]. 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 2-3 times a week 02/06/2025 Q2: How many drinks containi ng alcohol do you have on a typical day when you are drinking? 3 or 4 02/06/2025 Q3: How often do you have si x or more drinks on one occasion? Never 02/06/2025 PHQ-2 Answer Date Recorded PHQ-2 Total Score (If total score is 3 or more points, staff should administer the PHQ-9) 0 01/18/2024 Personal Safety Answer Date Recorded Have you ever been in or are you currently in a harmful physical or emotional relationship or is someone making you feel afraid or unsafe? Denies 02/06/2025 Comments No Sex and Gender Information Value Date Recorded Sex Assigned at Not on file Legal Sex Female 1:06 AM [employer] GRADE TEACH[employer] Gender Identity Female 12/11/2022 3:40 PM CDT Sexual Orientation Not on file Last Filed Vital Signs Vital Sign Reading Time Taken Comments Blood Pressure 119/86 02/06/2025 9:58 AM CDT Pulse 60 02/06/2025 9:58 AM CDT Temperature 36.5 C (97.7 F) 02/06/2025 9:38 AM CDT Respiratory Rate 19 02/06/2025 9:58 AM CDT Oxygen Saturation 100% 02/06/2025 9:58 AM CDT Inhaled Oxygen Concentration - - Weight 74.4 kg (164 lb) 02/06/2025 8:04 AM CDT Height 167.6 cm (5' 6) 02/06/2025 8:04 AM CDT Body Mass Index 26.47 02/06/2025 8:04 AM CDT Plan of Treatment Not on file Procedures Procedure Name Priority Date/Time Associated Diagnosis Comments COLONOSCOPY 02/06/2025 9:04 AM CDT SURGICAL PATHOLOGY Routine 02/06/2025 8:59 AM CDT Nausea and vomiting, unspecified vomiting type Right upper quadrant pain Epigastric pain Gastroesophagea l reflux disease, unspecified whether esophagitis present Colon cancer screening EGD 02/06/2025 8:55 AM CDT ESOPHAGOGASTRODUODENOSCOPY BIOPSY 02/06/2025 8:48 AM CDT Nausea and vomiting, unspecified vomiting type Right upper quadrant pain Epigastric pain Gastroesophagea l reflux disease, unspecified whether esophagitis present Colon cancer screening COLON REMOVAL SNARE 02/06/2025 8:48 AM CDT Nausea and vomiting, unspecified vomiting type Right upper quadrant pain Epigastric pain Gastroesophagea l reflux disease, unspecified whether esophagitis present Colon cancer screening LIVER Schedule Routine, Read Routine (OP Routine) 01/02/2025 8:31 AM CDT Epigastric pain Nausea and vomiting, unspecified vomiting type T4, FREE Routine 12/20/2024 T3, FREE Routine 12/20/2024 DIFFERENTIAL AUTO Routine 12/13/2024 3:09 PM CDT Epigastric pain Nausea and vomiting, unspecified vomiting type CBC WITH AUTO DIFFERENTIAL Routine 12/13 3:09 PM CDT Epigastric pain Nausea and vomiting, unspecified vomiting type HEPATIC FUNCTION PANEL Routine 3:09 PM CDT Epigastric pain Nausea and vomiting, unspecified vomiting type TISSUE TRANSGLUTAMINASE, IGA Routine 3:09 PM CDT Epigastric pain Nausea and vomiting, unspecified vomiting type IGA Routine 12/13/2024 3:09 PM CDT Epigastric pain Nausea and vomiting, unspecified vomiting type from Last 3 Months Results * Colonoscopy (02/06/2025 9:04 AM CDT) Anatomical Region Laterality Modality Other Narrative Procedure Note Eleazar Nath MD - 02/06/2025 9:04 AM CDT GI ENDOSCOPY [facility] Patient Name: Marco Menon Procedure Date: 02/06/2025 9:04 AM Date of : 1965 Admit Type: Outpatient Age: 59 Gender: Female Attending MD: Eleazar Nath M.D. Room: [facility] ENDOSCOPY ROOM 3 Note Status: Addendum Procedure: Colonoscopy Indications: Screening for colorectal malignant neoplasm, Last colonoscopy 10 years ago Referring MD: Nargis Zamora PA-C, Les Garber M.D. Providers: Eleazar Nath M.D., Erasmo Bain M.D. Medicines: Monitored Anesthesia Care Complications: No immediate complications. Estimated Blood Loss: Estimated blood loss was minimal. Procedure: Pre-Anesthesia Assessment: - Prior to the procedure, a History and Physicalwas performed, and patient medications, allergies and sensitivities were reviewed. The patient'stolerance of previous anesthesia was reviewed. - The risks and benefits of the procedure and the sedation options and risks were discussed with the patient. All questions were answered and informed consent was obtained. - Immediately prior to administration ofmedications, the patient was re-assessed for adequacy to receive sedatives. The benefits, risks and alternatives of theprocedure and sedation were discussed and informed consentwas obtained. All questions were answered. Please referto the signed informed consent document in the medical record. The scope was passed under direct vision.The [id number] endoscope was introduced through the anus and advanced to the terminal ileum. The colonoscopy was performed without difficulty. The patient tolerated the procedure well. The qualityof the bowel preparation was evaluated using the BBPS (Cross Anchor Bowel Preparation Scale) with scores of:Right Colon = 3, Transverse Colon = 3 and Left Colon = 3 (entire mucosa seen well with no residual staining, small fragments of stool or opaque liquid). Thetotal BBPS score equals 9. The bowel preparation used was GoLYTELY via split dose instruction. The quality of the bowel preparation was good. Findings: The terminal ileum appeared normal. A 4 mm polyp was found in the transverse colon. The polyp wassessile. The polyp was removed with a cold snare. Resection and retrieval were complete. Internal hemorrhoids were found during retroflexion. The hemorrhoids were small and Grade I (internal hemorrhoids that do not prolapse). Impression: - The examined portion of the ileum was normal. - One 4 mm polyp in the transverse colon, removedwith a cold snare. Resected and retrieved. - Internal hemorrhoids. Recommendation: - Await pathology results. - Repeat colonoscopy in 7-10 years [facility]. - Contact Information: During normal business hours - Please call theNurse Coordinator: [phone] After hours, evening, nights, weekends and holidays- Please call the hospital programmer operator numerical control at and ask for the GI fellow salesperson automobiles. Attending Participation: I was present and participated during the entire procedure, including non-gtz portions. Electronically signed by Eleazar Nath MD Eleazar Nath M.D. 02/06/2025 9:40:19 AM . Number of Addenda: 1 Note Initiated On: 02/06/2025 9:04 AM Addendum Number: 1 Addendum Date: 02/06/2025 9:54:13 AM Prep was Suprep, not Golytely. Electronically signed by Eleazar Nath MD Eleazar Nath M.D. 02/06/2025 9:54:28 AM . Eleazar Nath MD ENDOSCOPY PROCEDURES Edited Result - Final * Surgical pathology (02/06/2025 8:59 AM CDT) Tissue (Gastric/Stomach biopsy) 02/06/2025 8:59 AM CDT Tissue specimen (specimen) (Polyp(s), colon/colorectal, esophageal, gastric) 02/06/2025 9:36 AM CDT Narrative PATHOLOGY [facility] - 02/08/2025 12:19 PM CDT EPIC results best viewed via link to PDF [facility] [place] [address] Note to Patients: This report may contain a detailed description of human tissue sent by a health care provider to the laboratory for pathologic evaluation. The content of this report is essential for diagnosis and may provide important critical findings. This information may be unfamiliar to patients to review without a medical professional present. It is advised that the patient review this report in the presence of a health care provider who can answer questions and explain the details. SURGICAL PATHOLOGY REPORT FINAL Patient Name: MARCO MENON Gender: F : 1965 (Age: 59) Address: [address] [place] [phone] Hospital #: [id number] Taken:02/06/2025 Received:02/06/2025 Reported: 02/08/2025 Patient Type: [facility] Service: Gastro Location: Physician(s): Jose L Ortiz MD Rajneesh S. Jain, M.D. Nichole Michele Lewis, PA-C Diagnosis: A. Stomach, random biopsy: - Antral and oxyntic mucosa with focal active chronic Helicobacter pylori gastritis. - Complete-type intestinal metaplasia in antral mucosa; negative for dysplasia. - Helicobacter pylori immunostain is positive and highlights scattered organisms. B. Colon, transverse, polyp, polypectomy: - Fragments of tubular adenoma. [facility]/02/07/2025 15:38 By this signature, I attest that the above diagnosis is based upon my personal examination of the slides(and/or other material indicated in the diagnosis). Jaymie Green MD, PHD Report Electronically Reviewed and Signed Out By Jaymie Green MD, PHD 02/08/2025 12:19:30 History: The patient is a 59-year-old woman presenting for nausea and vomiting, unspecified vomiting type, right upper quadrant pain, epigastric pain, gastroesophageal reflux disease, unspecified whether esophagitis present colon cancer screening. Operative procedure: Colon removal snare and upper endoscopy biopsy. Specimen(s) Received: A: Random gastric cold biopsies B: Transverse colon polyp cold snare x1 Gross Description: Received in two formalin jars labeled with the patient's identifiers. A. Labeled random gastric cold biopsies and consists of multiple raines-pink fragment(s) of soft tissue with an aggregate measurement of 1.2 x 0.6 x 0.1 cm. Labeled A1. Jar 0. B. Labeled transverse colon polyp cold snare x1 and consists of two ranies-pink fragment(s) of soft tissue each measuring 0.7 cm in greatest dimension. Labeled B1. Jar 0. elsw/02/06/2025 14:01 PA(s): Jerri Beavers By this signature, I attest that the above diagnosis is based upon my personal examination of the slides(and/or other material). Addenda/Procedures The performance characteristics of some immunohistochemical stains, fluorescence in-situ hybridization tests and immunophenotyping by flow cytometry cited in this report (if any) were determined by the Surgical Pathology and Flow Cytometry Departments at [facility] as part of an ongoing corporate quality manager program and in compliance with federally mandated regulations drawn from the Clinical Laboratory Improvement Act of 1988 (CLIA '88). Some of these tests rely on the use of analyte specific reagents and are subject to specific labeling requirements by the US Food and Drug Administration. Such diagnostic tests may only be performed in a facility that is certified by the Department of Health and Human Services as a high complexity laboratory under CLIA '88. The FDA has determined that such clearance or approval is not necessary. This test is used for clinical purposes. It should not be regarded as investigational or for research. Nevertheless, federal rules concerning the medical use of analyte specific reagents require that the following disclaimer be attached to the report: This test was developed and its performance characteristics determined by the Surgical Pathology and Flow Cytometry Departments of [facility]. It has not been cleared or approved by the U. S. Food and Drug Administration. IMAGES AND SCANNED DOCUMENTS, IF INCLUDED, ONLY VIEWABLE IN PDF VERSION OF REPORT us Eleazar Nath MD LAB PATHOLOGY ORDERAB LES Final Result PATHOLOGY [facility] 3rd Floor [place], [place] [phone] * EGD (02/06/2025 8:55 AM CDT) Anatomical Region Laterality Modality Other Narrative Procedure Note Eleazar Nath MD - 02/06/2025 8:55 AM CDT GI ENDOSCOPY [facility] Patient Name: Marco Menon Procedure Date: 02/06/2025 8:55 AM Date of : 1965 Admit Type: Outpatient Age: 59 Gender: Female Attending MD: Eleazar Nath M.D. Room: [facility] ENDOSCOPY ROOM 3 Note Status: Finalized Procedure: Upper GI endoscopy Indications: Epigastric abdominal pain, Heartburn Referring MD: Nargis Zamora, RANDY, Les Garber M.D. Providers: Eleazar Nath M.D., Erasmo Bain M.D. Medicines: Monitored Anesthesia Care Complications: No immediate complications. Estimated Blood Loss: Estimated blood loss was minimal. Procedure: Pre-Anesthesia Assessment: - Prior to the procedure, a History and Physicalwas performed, and patient medications, allergies and sensitivities were reviewed. The patient'stolerance of previous anesthesia was reviewed. - The risks and benefits of the procedure and the sedation options and risks were discussed with the patient. All questions were answered and informed consent was obtained. - Immediately prior to administration ofmedications, the patient was re-assessed for adequacy to receive sedatives. The benefits, risks, and alternatives to theprocedure and sedation were discussed and informed consentwas obtained. The scope was passed under direct vision. The GIF [id number] endoscope was introduced through the mouth, and advanced to the second partof duodenum. The upper GI endoscopy was accomplished without difficulty. The patient tolerated the procedure well. Findings: LA Grade A (one or more mucosal breaks less than 5 mm, not extending between tops of 2 mucosal folds) esophagitis with no bleeding wasfound at the gastroesophageal junction. The entire examined stomach was normal. Biopsies were taken with acold forceps for histology. The examined duodenum was normal. Impression: - LA Grade A reflux esophagitis with no bleeding. - Normal stomach. Biopsied. - Normal examined duodenum. Recommendation: - Await pathology results. - Perform a colonoscopy today. - Contact Information: During normal business hours - Please call theNurse Coordinator: [phone] After hours, evening, nights, weekends and holidays- Please call the hospital programmer operator numerical control at and ask for the GI fellow salesperson automobiles. Attending Participation: I was present and participated during the entire procedure, including non-gtz portions. Electronically signed by Eleazar Nath MD Eleazar Nath M.D. 02/06/2025 9:04:36 AM . Number of Addenda: 0 Note Initiated On: 02/06/2025 8:55 AM Eleazar Nath MD ENDOSCOPY PROCEDURES Final Result * US Liver (01/02/2025 8:31 AM CDT) Anatomical Region Laterality Modality Abdomen N/A Ultrasound 01/02/2025 8:35 AM CDT Impressions 01/02/2025 5:05 PM CDT Cholecystectomy. No biliary ductal dilation. Dictated by: Prateek Chambers MD The radiology attending physician has personally reviewed this study, and had reviewed and/or edited this written report and agrees with it. Electronically signed by: Giovanni Magdaleno M.D., Ph.D Narrative 01/02/2025 5:05 PM CDT EXAMINATION: LIMITED ABDOMINAL SONOGRAM (GALLBLADDER) HISTORY: EXAMINATION: LIVER SONOGRAM HISTORY: Right upper quadrant pain following cholecystectomy COMPARISON: None FINDINGS: Pancreas: The imaged portions of the pancreas are unremarkable. Liver: The liver is normal in size. The echotexture is normal. The echogenicity is normal. There is no surface nodularity. No focal solid lesions are visualized. Gallbladder: The gallbladder is surgically absent. Bile Duct: There is no intrahepatic bile duct dilatation. The diameter of the common duct is 5 mm in the proximal segment and 6 mm in the mid segment and 6 mm in the distal segment. Other Findings: There is no ascites. Procedure Note Giovanni Magdaleno MD PhD - 01/02/2025 EXAMINATION: LIMITED ABDOMINAL SONOGRAM (GALLBLADDER) HISTORY: EXAMINATION: LIVER SONOGRAM HISTORY: Right upper quadrant pain following cholecystectomy COMPARISON: None FINDINGS: Pancreas: The imaged portions of the pancreas are unremarkable. Liver: The liver is normal in size. The echotexture is normal. The echogenicity is normal. There is no surface nodularity. No focal solid lesions are visualized. Gallbladder: The gallbladder is surgically absent. Bile Duct: There is no intrahepatic bile duct dilatation. The diameter of the common duct is 5 mm in the proximal segment and 6 mm in the mid segment and 6 mm in the distal segment. Other Findings: There is no ascites. IMPRESSION: Cholecystectomy. No biliary ductal dilation. Dictated by: Prateek Chambers MD The radiology attending physician has personally reviewed this study, and had reviewed and/or edited this written report and agrees with it. Electronically signed by: Giovanni Magdaleno M.D., Ph.D Nargis ALVARADO IMG US PROCEDURES Final Result * T3, Free (12/20/2024) 12/20/2024 Impressions EXTERNAL LAB - 12/20/2024 3.15 Reference 2.71-6.16 Historical Provider LAB BLOOD ORDERABLES Haley l Result EXTERNAL LAB * T4, free (12/20/2024) SCRIBED T4, Free 1.30 0.78 - 2.19 mcg/dL EXTERNAL LAB Blood 12/20/2024 us Historical Provider MD LAB BLOOD ORDERABLES Haley byrd Result EXTERNAL LAB * (ABNORMAL) Differential, auto (12/13/2024 3:09 PM CDT) Neutrophil abs 3.63 1.50 - 6.50 K/cumm Imm gran abs 0.04 0.00 - 0.10 K/cumm [facility] Lymphocyte abs 3.59(H) 0.80 - 3.30 K/cumm [facility] Monocyte abs 0.52 0.20 - 0.80 K/cumm [facility] Eosinophil abs 0.15 0.00 - 0.50 K/cumm [facility] Basophil abs 0.07 0.00 - 0.10 K/cumm [facility] Neutrophil pct 45.3 % [facility] Comment: Interpretive Data Percent cell count reference ranges are not reported, since discordance with absolute values may lead to misinterpretation of CBC data. Current Interpretive Data was last revised on 2017. Imm gran pct 0.5 % [facility] Comment: Interpretive Data Percent cell count reference ranges are not reported, since discordance with absolute values may lead to misinterpretation of CBC data. Current Interpretive Data was last revised on 2017. Lymphocyte pct 44.9 % [facility] Comment: Interpretive Data Percent cell count reference ranges are not reported, since discordance with absolute values may lead to misinterpretation of CBC data. Current Interpretive Data was last revised on 2017. Monocyte pct 6.5 % [facility] Comment: Interpretive Data Percent cell count reference ranges are not reported, since discordance with absolute values may lead to misinterpretation of CBC data. Current Interpretive Data was last revised on 2017. Eosinophil pct 1.9 % [facility] Comment: Interpretive Data Percent cell count reference ranges are not reported, since discordance with absolute values may lead to misinterpretation of CBC data. Current Interpretive Data was last revised on 2017. Basophil pct 0.9 % [facility] Comment: Interpretive Data Percent cell count reference ranges are not reported, since discordance with absolute values may lead to misinterpretation of CBC data. Current Interpretive Data was last revised on 2017. Blood 12/13/2024 3:09 PM CDT 12/13/2024 3:50 PM CDT Nargis ALVARADO LAB BLOOD ORDERABLES Fi nal Result [facility] [place] [address] * CBC with auto differential (12/13/2024 3:09 PM CDT) WBC 8.00 3.80 - 9.90 K/cumm Hgb 14.5 11.9 - 15.5 g/dL [facility] Hct 42.8 35.6 - 45.5 % [facility] Plt 304 150 - 400 K/cumm [facility] MPV 9.8 9.1 - 12.3 fL [facility] RBC 4.88 3.90 - 5.20 M/cumm [facility] MCV 87.7 81.3 - 96.4 fL [facility] MCH 29.7 27.1 - 33.3 pg [facility] MCHC 33.9 32.3 - 35.7 g/dL [facility] RDW CV 12.9 11.1 - 14.9 % [facility] RDW SD 41.1 35.7 - 48.1 fL [facility] NRBC abs 0.00 0.00 - 0.01 K/cumm [facility] Blood 12/13/2024 3:09 PM CDT 12/13/2024 3:50 PM CDT Nargis ALVARADO LAB BLOOD ORDERABLES Fi nal Result Performing Organization Address City/[facility]/ZIP Co de Phone Number [facility] [place] [address] * Tissue transglutaminase IgA (TGG-IgA Ab) (12/13/2024 3:09 PM CDT) [facility] TTG ab, IgA <0.5 <=14.9 units/mL Comment: Interpretive data Negative: <15 units/mL Positive: > or equal to 15 units/mL Current interpretive data was last revised on 2016. Blood 12/13/2024 3:09 PM CDT 12/13/2024 3:50 PM CDT Nargis ALVARADO LAB BLOOD ORDERABLES Fi nal Result [facility] [place] [address] * IgA (12/13/2024 3:09 PM CDT) [facility] Immunoglobulin A 331 70 - 400 mg/dL Blood 12/13/2024 3:09 PM CDT 12/13/2024 3:50 PM CDT Nargis ALVARADO LAB BLOOD ORDERABLES Fi nal Result Performing Organization Address City/[facility] Co de Phone Number [facility] [place] [address] * Hepatic function panel (12/13/2024 3:09 PM CDT) [facility] Bilirubin, total 0.2 0.1 - 1.2 mg/dL Bilirubin, direct <0.2 0.1 - 0.3 mg/dL [facility] Protein, pl 7.5 6.5 - 8.5 g/dL [facility] Albumin 4.6 3.5 - 5.0 g/dL [facility] Alk phos 90 40 - 130 Units/L [facility] ALT 20 7 - 45 Units/L [facility] AST 28 10 - 45 Units/L [facility] Blood 12/13/2024 3:09 PM CDT 12/13/2024 3:50 PM CDT us Nargis ALVARADO LAB BLOOD ORDERABLES Fi nal Result [facility] [place] [address] from Last 3 Months Insurance Advance Directives For more information, please contact: [phone] * Full Code (Latest Code Status on File) Date Activated Date Inactivated Comments 02/06/2025 8:04 AM 02/06/2025 2:[address] Relationship Specialty Start Date End Date Les Garber MD [address] [place] [address] PCP - General Internal Medicine 12/22/22
--- OUTSIDE RECORDS SUMMARY | 2025-02-12 15:14 | XMS_ITS | Encounter Summary ---
Author Organization [facility] Address [address] [place] [address] Phone Care Team Providers Care Telephone Order Dispatcher Name Role Phone Les Garber MD Primary Care Provider [phone] Encounter Details Date Type Department Care Team (Late st Contact Info) Description 02/09/2025 Results Follow-Up [facility] Gastroenterology [address] [facility] 12th [place] [address] [place] [address] Nargis Camp PA [address] [place] [address] Surgical pathology Social History Tobacco Use Types Packs/Day Years Used Date Smoking Tobacco: Former Cigarettes Passive Smoke Exposure: Never Smokeless Tobacco: Never AUDIT-C Answer Date Recorded Q1: How often [...] on file Legal Sex Female 1:06 AM WARP KNITTER Gender Identity Female 12/11/2022 3:40 PM CDT Sexual Orientation Not on file documented as of this encounter Plan of Treatment Not on file documented as of this encounter Visit Diagnoses Not on filedocumented in this encounter Care Teams Telephone Order Dispatcher Relationship Specialty Start Date End Date Les Garber MD [address] [place] [id number] PCP - General Internal Medicine 12/22/22 documented as of this encounter
--- OUTSIDE RECORDS SUMMARY | 2025-02-12 15:14 | XMS_ITS | Clinical Summary ---
Author Organization [facility] [address] [place] [phone] Care Team Providers Care Shake Splitter Name Role Phone Les Garber MD Primary Care Provider + [phone] Allergies No known active allergies Medications aspirin [...] instructions on package. For any questions call [phone]. 360 mL 5 025 Discontin ued(Stop Taking [...] 02/18/2023 Assessment & Plan (07/25/2024 10:47 AM BUNG DRIVER): chronic, progressively improving reviewed and discussed patient's [...] months Assessment & Plan (06/21/2023 9:06 AM BUNG DRIVER): Chronic, uncontrolled, improving, recent TSH 8, iatrogenic [...] 12/21/2022 Assessment & Plan (06/21/2023 9:06 AM BUNG DRIVER): No compressive symptoms Plan to repeat thyroid [...] 12/21/2022 Assessment & Plan (06/21/2023 9:10 AM BUNG DRIVER): Liver enzymes back to normal range Assessment [...] Department Care Team Description 02/09/2025 Results Follow-Up [facility] Gastroenterology [address] [facility] Advanced Medicine 12th [place] [address] [place] [address] Nargis Camp PA Surgical pathology 02/06/2025 9:00 AM CDT - 02/06/2025 10:00 AM CDT Surgery [facility] [address] [place] [address] Eleazar Nath MD COLON REMOVAL SNARE 02/06/2025 8:48 AM CDT Anesthesia Event [facility] [place] [address] [facility] [address] [place] [address] Damon Curran MD Hubbard, Gary Lee, CRNA 02/06/2025 7:31 AM CDT - 02/06/2025 10:08 AM CDT Hospital Encounter [facility] [address] [place] [address] Eleazar Nath MD Nausea and vomiting, unspecified vomiting type; Right upper quadrant pain; Epigastric pain; Gastroesophageal reflux disease, unspecified whether esophagitis present; Colon cancer screening Discharge Disposition: Discharge to home or self care 02/01/[address] [facility] [address] [place] [address] Rachel Alston RN GI PROCEDURE 3 DAY PRE CALL 01/30/[address] [facility] [address] [place] [address] Rachel Alston RN GI PROCEDURE 7 DAY PRE CALL 01/02/2025 7:30 AM CDT - 01/02/2025 11:59 PM CDT Hospital Encounter [facility] [address] [place] [phone] Epigastric pain; Nausea and vomiting, unspecified vomiting type Discharge Disposition: Discharge to home or self care 12/22/2024 Telephone [facility] [address] [phone] Dominique Melendez MD 12/19/2024 Orders Only [facility] Gastroenterology [address] [place] [address] [address]nd [address] [place] [phone] Kimberly Rowe LPN 12/19/2024 Documentation [facility] Gastroenterology [address] [place] [address] [address] [place] [phone] Kimberly Rowe LPN GI ASSESSMENT 12/18/2024 Orders Only [facility] Gastroenterology [address] [place] [address] [address] [place] [phone] Kimberly Rowe ENAMEL CRACKER Nausea and vomiting, unspecified vomiting type (Primary Dx); Right upper quadrant pain; Epigastric pain; Gastroesophageal reflux disease, unspecified whether esophagitis present; Colon cancer screening 12/15/2024 Results Follow-Up [facility] Gastroenterology [address] [place] [address] Advanced Medicine 12th [place] [address] [place] [address] Nargis Camp PA IgA, Tissue transglutaminase IgA (TGG-IgA Ab), Hepatic function panel, Additional followed-up results: 3 12/13/2024 6:00 PM CDT Lab [facility] ([facility]) [address] [place] [phone] Epigastric pain; Nausea and vomiting, unspecified vomiting type 12/13/2024 2:20 PM CDT Office Visit [facility] Gastroenterology [address] [facility] 12th [place] [address] [place] [address] Nargis Camp PA Nausea and vomiting, unspecified vomiting type (Primary Dx); Right upper quadrant pain; Epigastric pain; Gastroesophageal reflux disease, unspecified whether esophagitis present; Constipation, unspecified constipation type; Colon cancer screening 11/30/2024 Telephone [facility] Gastroenterology [facility] 12th [place] [address] [place] [address] Bolivar Foley CMA from Last 3 Months Surgical History Surgery [...] on file Legal Sex Female 1:06 AM BUNG DRIVER Gender Identity Female 12/11/2022 3:40 PM CDT [...] 02/06/2025 8:04 AM CDT Plan of Treatment Health Maintenance Due Date Last Done Comments Breast Cancer Screening-Mammogram 1965 Cervical Cancer Screening 1965 Hepatitis C Screening 1965 Hepatitis B Screening 1983 Regular Well Visit/Exam 18-64 1983 DTaP/Tdap/Td Vaccine (2 - Td or Tdap) 04/12/2023 04/12/2013 Covid-19 Vaccine (4 - 2023-2 5 season) 2024 08/05/2021, 11/09/2020, 10/17/2020 Depression Screening 01/17/2025 01/18/2024 Influenza Vaccine (Season Ended) 2025 06/03/2020, 06/01/2017 Colon Cancer Screening-Colonoscopy 02/06/2035 02/06/2025 Pneumococcal vaccine <65 Aged Out 12/04/2020 No [...] Female Attending MD: Eleazar Nath M.D. Room: [facility] ENDOSCOPY ROOM 3 Note Status: Addendum Procedure: Colonoscopy Indications: Screening for colorectal malignant neoplasm, Last colonoscopy 10 years ago Referring MD: Nargis Zamora, RANDY, Les Garber M.D. Providers: Eleazar Nath M.D., Erasmo Bani M.D. Medicines: Monitored Anesthesia Care Complications: No [...] The scope was passed under direct vision.The [id number] endoscope was introduced through the anus and advanced to the terminal ileum. The colonoscopy was performed without difficulty. The patient tolerated the procedure well. The qualityof the bowel preparation was evaluated using the BBPS ([place] Bowel Preparation Scale) with scores of:Right Colon [...] results. - Repeat colonoscopy in 7-10 years [facility]. - Contact Information: During normal business hours - Please call theNurse Coordinator: [phone] After hours, evening, nights, weekends and holidays- Please call the hospital hydraulic operator at and ask for the GI fellow distribution sales representative. Attending Participation: I was present and participated [...] gastric) 02/06/2025 9:36 AM CDT Narrative PATHOLOGY [facility] - 02/08/2025 12:19 PM CDT EPIC results best viewed via link to PDF [facility] Jenny Estrada [facility] [place] [address] Note to Patients: This report may contain [...] Gender: F : 1965 (Age: 59) Address: [address] [place] [phone] Hospital #: [id number] Taken:02/06/2025 Received:02/06/2025 Reported: 02/08/2025 [facility] Service: Gastro Location: Physician(s): Eleazar Nath M.D. MD Les Barksdale M.D. Nargis Camp PA-C Diagnosis: A. Stomach, random biopsy: - Antral and oxyntic mucosa with focal active chronic Helicobacter pylori gastritis. - Complete-type intestinal metaplasia in antral mucosa; negative for dysplasia. - Helicobacter pylori immunostain is positive and highlights scattered organisms. B. Colon, transverse, polyp, polypectomy: - Fragments of tubular adenoma. [facility]/02/07/2025 15:38 By this signature, I attest that [...] cold snare x1 and consists of two raines-pink fragment(s) of soft tissue each measuring 0.7 cm in greatest dimension. Labeled B1. Jar 0. [facility]/02/06/2025 14:01 PA(s): Jerri Beavers By this signature, I attest that the above diagnosis is based upon my personal examination of the slides(and/or other material). Addenda/Procedures The performance characteristics of some immunohistochemical stains, fluorescence in-situ hybridization tests and immunophenotyping by flow cytometry cited in this report (if any) were determined by the Surgical Pathology and Flow Cytometry Departments at [facility] as part of an ongoing quality analyst/technical writer program and in compliance with federally mandated [...] Surgical Pathology and Flow Cytometry Departments of [facility]. It has not been cleared or approved by the U. S. Food and Drug Administration. IMAGES AND SCANNED DOCUMENTS, IF INCLUDED, ONLY VIEWABLE IN PDF VERSION OF REPORT us Eleazar Nath MD LAB PATHOLOGY ORDERAB LES Final Result PATHOLOGY [facility] 3rd Floor [place], [place] [phone] * EGD (02/06/2025 8:55 AM CDT) Anatomical Region Laterality Modality Other Narrative Procedure Note Eleazar Nath MD - 02/06/2025 8:55 AM CDT GI ENDOSCOPY [facility] Patient Name: Marco Menon Procedure Date: 02/06/2025 8:55 AM Date of : 1965 Admit Type: Outpatient Age: 59 Gender: Female Attending MD: Eleazar Nath M.D. Room: [facility] ENDOSCOPY ROOM 3 Note Status: Finalized Procedure: Upper GI endoscopy Indications: Epigastric abdominal pain, Heartburn Referring MD: Narigs Zamora PA-C, Les Garber M.D. Providers: Eleazar [...] passed under direct vision. The GIF [id number] endoscope was introduced through the mouth, and [...] business hours - Please call theNurse Coordinator: [phone] After hours, evening, nights, weekends and holidays- Please call the hospital hydraulic operator at and ask for the GI fellow distribution sales representative. Attending Participation: I was present and participated during the entire procedure, including non-gtz portions. Electronically signed by Eleazar Nath MD Eleazar Nath M.D. 02/06/2025 9:04:36 AM . Number of Addenda: 0 Note Initiated On: 02/06/2025 8:55 AM us Eleazar Nath MD ENDOSCOPY PROCEDURES Final Result [...] EXTERNAL LAB - 12/20/2024 3.15 Reference 2.71-6.16 [facility] Provider MD LAB BLOOD ORDERABLES Haley l Result Performing Organization Address City/[facility] Co de Phone Number EXTERNAL LAB * T4, free (12/20/2024) SCRIBED T4, Free 1.30 0.78 - 2.19 mcg/dL EXTERNAL LAB Blood 12/20/2024 [facility] Provider MD LAB BLOOD ORDERABLES Haley l Result Performing Organization Address City/[facility]/ZIP Co de Phone Number EXTERNAL LAB * (ABNORMAL) Differential, auto (12/13/2024 3:09 PM CDT) Neutrophil abs 3.63 1.50 - 6.50 K/cumm Imm gran abs 0.04 0.00 - 0.10 K/cumm [facility] Lymphocyte abs 3.59(H) 0.80 - 3.30 K/cumm [facility] Monocyte abs 0.52 0.20 - 0.80 K/cumm [facility] Eosinophil abs 0.15 0.00 - 0.50 K/cumm [facility] Basophil abs 0.07 0.00 - 0.10 K/cumm [facility] Neutrophil pct 45.3 % [facility] Comment: Interpretive Data Percent cell count reference ranges are not reported, since discordance with absolute values may lead to misinterpretation of CBC data. Current Interpretive Data was last revised on 2017. Imm gran pct 0.5 % [facility] Comment: Interpretive Data Percent cell count reference ranges are not reported, since discordance with absolute values may lead to misinterpretation of CBC data. Current Interpretive Data was last revised on 2017. Lymphocyte pct 44.9 % [facility] Comment: Interpretive Data Percent cell count reference ranges are not reported, since discordance with absolute values may lead to misinterpretation of CBC data. Current Interpretive Data was last revised on 2017. Monocyte pct 6.5 % [facility] Comment: Interpretive Data Percent cell count reference ranges are not reported, since discordance with absolute values may lead to misinterpretation of CBC data. Current Interpretive Data was last revised on 2017. Eosinophil pct 1.9 % [facility] Comment: Interpretive Data Percent cell count reference ranges are not reported, since discordance with absolute values may lead to misinterpretation of CBC data. Current Interpretive Data was last revised on 2017. Basophil pct 0.9 % [facility] Comment: Interpretive Data Percent cell count reference ranges are not reported, since discordance with absolute values may lead to misinterpretation of CBC data. Current Interpretive Data was last revised on 2017. Blood 12/13/2024 3:09 PM CDT 12/13/2024 3:50 PM CDT us Nargis ALVARADO LAB BLOOD ORDERABLES Fi nal Result [facility] Department [place] [address] * CBC with auto differential (12/13/2024 3:09 PM CDT) WBC 8.00 3.80 - 9.90 K/cumm Hgb 14.5 11.9 - 15.5 g/dL [facility] Hct 42.8 35.6 - 45.5 % [facility] Plt 304 150 - 400 K/cumm [facility] MPV 9.8 9.1 - 12.3 fL [facility] RBC 4.88 3.90 - 5.20 M/cumm [facility] MCV 87.7 81.3 - 96.4 fL [facility] MCH 29.7 27.1 - 33.3 pg [facility] MCHC 33.9 32.3 - 35.7 g/dL [facility] RDW CV 12.9 11.1 - 14.9 % [facility] RDW SD 41.1 35.7 - 48.1 fL [facility] NRBC abs 0.00 0.00 - 0.01 K/cumm [facility] Blood 12/13/2024 3:09 PM CDT 12/13/2024 3:50 PM CDT Nargis ALVARADO LAB BLOOD ORDERABLES Fi nal Result Performing Organization Address City/[facility] Co de Phone Number [facility] [place] [address] * Tissue transglutaminase IgA (TGG-IgA Ab) (12/13/2024 3:09 PM CDT) TTG ab, IgA <0.5 <=14.9 units/mL Comment: Interpretive data Negative: <15 units/mL Positive: > or equal to 15 units/mL Current interpretive data was last revised on 2016. Blood 12/13/2024 3:09 PM CDT 12/13/2024 3:50 PM CDT Nargis ALVARADO LAB BLOOD ORDERABLES Fi nal Result Performing Organization Address City/[facility] Co de Phone Number [facility] [place] [address] * IgA (12/13/2024 3:09 PM CDT) Immunoglobulin A 331 70 - 400 mg/dL Blood 12/13/2024 3:09 PM CDT 12/13/2024 3:50 PM CDT Nargis ALVARADO LAB BLOOD ORDERABLES Fi nal Result Performing Organization Address City/[facility] de Phone Number [facility] Department [place] [address] * Hepatic function panel (12/13/2024 3:09 PM CDT) Bilirubin, total 0.2 0.1 - 1.2 mg/dL Bilirubin, direct <0.2 0.1 - 0.3 mg/dL [facility] Protein, pl 7.5 6.5 - 8.5 g/dL [facility] Albumin 4.6 3.5 - 5.0 g/dL [facility] Alk phos 90 40 - 130 Units/L [facility] ALT 20 7 - 45 Units/L [facility] AST 28 10 - 45 Units/L [facility] Blood 12/13/2024 3:09 PM CDT 12/13/2024 3:50 PM CDT Nargis ALVARADO LAB BLOOD ORDERABLES Fi nal Result Performing Organization Address [facility] de Phone Number [facility] Department [place] [address] from Last 3 Months Insurance [facility] Advance Directives For more information, please contact: [phone] * Full Code (Latest Code Status on File) Date Activated Date Inactivated Comments 02/06/2025 8:04 AM 02/06/2025 2:14 PM Care Teams Shake Splitter Relationship Specialty Start Date End Date Les Garber MD [address] [place] [address] PCP - General Internal Medicine 12/22/22
--- OUTSIDE RECORDS SUMMARY | 2025-02-12 15:14 | XMS_ITS | Encounter Summary ---
Author Organization [facility] Address [address] [place] [address] Phone Care Team Providers Care Leaded Glass Installer Name Role Phone Les Garber MD Primary Care Provider [phone] Encounter Details Date Type Department Care Team (Latest Contact Info) Description 12/15/2024 Results Follow-Up [facility] Gastroenterology [address] [facility] Medicine 12th [place] [address] [place] [phone] Nargis Camp PA [address] [place] [address] IgA, Tissue transglutaminase IgA (TGG-IgA Ab), Hepatic function panel, Additional followed-up results: 3 Social History Tobacco Use Types Packs/Day Years [...] on file Legal Sex Female 1:06 AM BOWL ATTENDANT Gender Identity Female 12/11/2022 3:40 PM CDT Sexual Orientation Not on file documented as of this encounter Plan of Treatment Not on file documented as of this encounter Visit Diagnoses Not on filedocumented in this encounter Care Teams Leaded Glass Installer Relationship Specialty Start Date End Date Les Garber MD [address] [id number] PCP - General Internal Medicine 12/22/22 documented as of this encounter
--- OUTSIDE RECORDS SUMMARY | 2025-02-12 15:14 | XMS_ITS | Clinical Summary ---
Author Organization [facility] Address [address] [place] [address] Phone Care Team Providers Care Heat Treat Supervisor Name Role Phone Les Garber MD Primary [...] on file Legal Sex Female 2:26 PM GOLF STUD RIVETER Gender Identity Not on file Sexual Orientation Not on file Last Filed Vital Signs Vital Sign Reading Time Taken Comments Blood Pressure 144/79 06/29/2019 3:15 PM GOLF STUD RIVETER Pulse 82 06/29/2019 3:15 PM GOLF STUD RIVETER Temperature 36.4 C (97.5 F) 06/29/2019 3:15 PM GOLF STUD RIVETER Respiratory Rate - - Oxygen Saturation 98% 06/29/2019 3:15 PM GOLF STUD RIVETER Inhaled Oxygen Concentration - - Weight 74.5 kg (164 lb 4.8 oz) 06/29/2019 3:15 P M GOLF STUD RIVETER Height 170.2 cm (5' 7) 06/29/2019 3:15 PM GOLF STUD RIVETER Body Mass Index 25.73 06/29/2019 3:15 PM GOLF STUD RIVETER Plan of Treatment Health Maintenance Due Date Last Done Comments DTAP/TDAP/TD VACCINES (1 - Tdap) 1984 HEPATITIS B VACCINES (1 of 3 - 19+ 3-dose series) 11/1984 HPV/Cotest (21-29) 1986 CERVICAL CANCER SCREENING 1995 HPV/Cotest (30-65) 1995 PAP SMEAR 1995 BREAST CANCER SCREENING 2005 COLORECTAL SCREENING 2010 Colorectal Cancer Screening 2010 FIT-DNA Q 3 years 2010 FIT/FOBT Q 1 year 2010 Flex Sig/CT Colonography Q 5 years 2010 ZOSTER VACCINE (1 of 2) 2015 INFLUENZA VACCINE (#1) 2024 06/01/2017 Insurance [facility] BLUE ACCESS/TRUE BLUE PPO Care Teams Heat Treat Supervisor Relationship Specialty Start Date End Date Les Garber MD [address] [place] [address] PCP - General Internal Medicine 12/29/18
== END 2025-02-12 15:10 | disposition home or self-care (01) ==
LOC: CHSIMG 15:11
PROVIDERS: PCP Internal Medicine; Visit Provider Internal Medicine
DX: S99.912A Unspecified injury of left ankle, initial encounter (principal); S82.65XA Nondisplaced fracture of lateral malleolus of left fibula, initial encounter for closed fracture
CPT/HCPCS: 73610; 73630

== ENCOUNTER 2025-02-26 15:42 | Outpatient (CLI) | payer OTHER, SELFPAY ==
--- NOTE | ~2025-02-26 | XR_ITS ---
XR ankle LT min 3V Ordering provider: Les Garber MD History: . L lateral malleolus fracture . Comparison: None. FINDINGS: BONES: Fracture in the tip of the left fibula. Postoperative changes in the foot. JOINT SPACES: The ankle mortise is normal. SOFT TISSUES: Soft tissue swelling over the lateral malleolus. Calcaneus spur. IMPRESSION: Fracture in the tip of the lateral malleolus. Reviewed, dictated and finalized at location A.
--- OUTSIDE RECORDS SUMMARY | 2025-02-26 15:46 | XMS_ITS | Continuity of Care Document ---
Author Organization [facility] Address [address] [facility] [address] [place] [address] Phone Care Team Providers Care Chemical Librarian Name Role Phone Shanta Mansfield Unavailable Unavailable Advance Directives Directive Yes / No Effective Date File Name No Information Encounters Encounter Description Practice Location Reason(s) For Visit Diagnoses Date Provider Providers Copied on Encounter [facility], [id number] [place] [address] [address], [place], [place], [id number], [place] tel:[phone] [facility] No Information [address]. [address] , [address], [place], [address], [place]. tel:[phone] Family History Family Member Type Diagnosis Age At Onset No Information Payers Payer name Insurance type Covered republican ID Authoriza tion(s) No Information Social History [...]
--- OUTSIDE RECORDS SUMMARY | 2025-02-26 15:46 | XMS_ITS | Clinical Summary ---
Author Organization [facility] Address [address] [place] [address] Phone Care Team Providers Care Pediatrician Active Practice Name Role Phone Les Garber MD Primary [...] on file Legal Sex Female 2:26 PM DETONATOR ASSEMBLER Gender Identity Not on file Sexual Orientation Not on file Last Filed Vital Signs Vital Sign Reading Time Taken Comments Blood Pressure 144/79 06/29/2019 3:15 PM DETONATOR ASSEMBLER Pulse 82 06/29/2019 3:15 PM DETONATOR ASSEMBLER Temperature 36.4 C (97.5 F) 06/29/2019 3:15 PM DETONATOR ASSEMBLER Respiratory Rate - - Oxygen Saturation 98% 06/29/2019 3:15 PM DETONATOR ASSEMBLER Inhaled Oxygen Concentration - - Weight 74.5 kg (164 lb 4.8 oz) 06/29/2019 3:15 P M DETONATOR ASSEMBLER Height 170.2 cm (5' 7) 06/29/2019 3:15 PM DETONATOR ASSEMBLER Body Mass Index 25.73 06/29/2019 3:15 PM DETONATOR ASSEMBLER Plan of Treatment Health Maintenance Due Date [...] (1 of 2) 2015 INFLUENZA VACCINE (#1) 2025 06/01/2017 Insurance [facility] BLUE ACCESS/TRUE BLUE PPO Care Teams Pediatrician Active Practice Relationship Specialty Start Date End Date Les Garber MD [address] [place] [address] PCP - General Internal Medicine 12/29/18
== END 2025-02-26 15:43 | disposition home or self-care (01) ==
LOC: CHSIMG 15:44
PROVIDERS: PCP Internal Medicine; Visit Provider Internal Medicine
DX: S82.62XA Displaced fracture of lateral malleolus of left fibula, initial encounter for closed fracture (principal)
CPT/HCPCS: 73610

== ENCOUNTER 2025-03-22 07:08 | Outpatient (RCR) | payer OTHER, SELFPAY ==
[2025-03-22 08:35] LABS: Free T4 Free Thyroxine 0.99 ng/dL (0.78-2.19)
[2025-03-22 08:48] LABS: Thyroid Stimulating Hormone 1.910 uIU/mL (0.465-4.680)
[2025-03-22 09:47] LABS: Free T3 3.70 pg/mL (2.71-6.16)
== END 2025-06-20 23:59 | disposition home or self-care (01) ==
LOC: ANHLAB 07:08
PROVIDERS: PCP Internal Medicine; Visit Provider Internal Medicine Endocrinology, Diabetes & Metabolism
DX: E05.00 Thyrotoxicosis with diffuse goiter without thyrotoxic crisis or storm (principal)
CPT/HCPCS: 36415; 84439; 84443; 84481

== ENCOUNTER 2025-03-22 07:13 | Outpatient (CLI) | payer OTHER, SELFPAY ==
--- OUTSIDE RECORDS SUMMARY | 2025-03-22 07:18 | XMS_ITS | Encounter Summary ---
Author Organization [facility] Address [address] [place] [address] Phone Care Team Providers Care Contract Specialist Name Role Phone Les Garber MD Primary Care Provider [phone] Encounter Details Date Type Department Care Team (Late st Contact Info) Description 02/09/2025 Results Follow-Up [facility] [address] 12th [place] [address] [place] [address] Nargis Camp PA [address] [place] [address] Surgical pathology Social History Tobacco Use Types [...] on file Legal Sex Female 1:06 AM DISTILLATION OPERATOR Gender Identity Female 12/11/2022 3:40 PM CDT Sexual Orientation Not on file documented as of this encounter Plan of Treatment Not on file documented as of this encounter Visit Diagnoses Not on filedocumented in this encounter Care Teams Contract Specialist Relationship Specialty Start Date End Date Les Garber MD [address] [id number] PCP - General Internal Medicine 12/22/22 documented as of this encounter
--- OUTSIDE RECORDS SUMMARY | 2025-03-22 07:18 | XMS_ITS | Continuity of Care Document ---
Author Organization [facility] Address [address] [facility] [address] [place] [address] Phone Care Team Providers Care Brand Lead Name Role Phone Shanta Mansfield Unavailable Unavailable Advance Directives Directive Yes / No Effective Date File Name No Information Encounters Encounter Description Practice Location Reason(s) For Visit Diagnoses Date Provider Providers Copied [facility]counter [facility], [id number] [place] [address] [address], [place], [place], [id number], [place] tel:[phone] [facility] No Information [address]. [address] , [address], [place], [address], [place]. tel:[phone] Family History Family Member Type Diagnosis Age [...]
--- OUTSIDE RECORDS SUMMARY | 2025-03-22 07:18 | XMS_ITS | Clinical Summary ---
Author Organization [facility] Address [address] [place] [address] Phone Care Team Providers Care Oxygen Equipment Technician Name Role Phone Les Garber MD [...] on file Legal Sex Female 2:26 PM SPECIAL SHOPPER Gender Identity Not on file Sexual Orientation Not on file Last Filed Vital Signs Vital Sign Reading Time Taken Comments Blood Pressure 144/79 06/29/2019 3:15 PM SPECIAL SHOPPER Pulse 82 06/29/2019 3:15 PM SPECIAL SHOPPER Temperature 36.4 C (97.5 F) 06/29/2019 3:15 PM SPECIAL SHOPPER Respiratory Rate - - Oxygen Saturation 98% 06/29/2019 3:15 PM SPECIAL SHOPPER Inhaled Oxygen Concentration - - Weight 74.5 kg (164 lb 4.8 oz) 06/29/2019 3:15 P M SPECIAL SHOPPER Height 170.2 cm (5' 7) 06/29/2019 3:15 PM SPECIAL SHOPPER Body Mass Index 25.73 06/29/2019 3:15 PM SPECIAL SHOPPER Plan of Treatment Health Maintenance Due Date [...] 2015 INFLUENZA VACCINE (#1) 2025 06/01/2017 Insurance [facility] BLUE ACCESS/TRUE BLUE PPO Care Teams Oxygen Equipment Technician Relationship Specialty Start Date End Date Les Garber MD [address] [place] [address] PCP - General Internal Medicine 12/29/18
--- OUTSIDE RECORDS SUMMARY | 2025-03-22 07:18 | XMS_ITS | Clinical Summary ---
Author Organization [facility] [address] [place] [address] Care Team Providers Care Field Care Advocate Name Role Phone Les Garber MD Primary Care Provider [phone] Allergies No known active allergies Medications aspirin 81 mg enteric coated tablet Take 1 tablet (81 mg total) by mouth daily Active MAGNESIUM ORAL Take by mouth 450MG QD Active omeprazole (PriLOSEC) 40 mg capsuleIndicati ons:Treatment of Non-Bleeding Gastric Disorder Take 1 capsule (40 mg total) by mouth 2 (two) times a day 60 capsule 3 5 04/12/20 25 Active multivitamin tabletIndicatio ns:Vitamin Deficiency Prevention Take 1 tablet by mouth Active krill oil 500 mg capsule Take 1,000 mg by mouth Active methIMAzole (TAPAZOLE) 5 mg tabletIndicatio ns:Graves' disease Take 1/2 tablet by mouth 4 times a week. 24 tablet 5 Active methIMAzole (TAPAZOLE) 5 mg tabletIndicatio ns:Graves' disease Take 1/2 tablet by mouth 4 times a week. 24 tablet 2 5 02/27/20 25 Discontinue d(Reorder) metroNIDAZOLE (FLAGYL) 250 mg tablet Take 1 tablet (250 mg total) by mouth 4 (four) times a day for 14 days 56 tablet 5 03/05/20 25 doxycycline (VIBRAMYCIN) 100 mg capsule Take 1 tablet/capsu le (100 mg total) by mouth 2 (two) times a day for 14 days 28 tablet/capsu le 5 03/05/20 25 Active Problems Problem Noted Date Diagnosed Date [...] 02/18/2023 Assessment & Plan (07/25/2024 10:47 AM HVAC INSTALLATION TECHNICIAN): chronic, progressively improving reviewed and discussed patient's [...] months Assessment & Plan (06/21/2023 9:06 AM HVAC INSTALLATION TECHNICIAN): Chronic, uncontrolled, improving, recent TSH 8, iatrogenic [...] 12/21/2022 Assessment & Plan (06/21/2023 9:06 AM HVAC INSTALLATION TECHNICIAN): No compressive symptoms Plan to repeat thyroid [...] 12/21/2022 Assessment & Plan (06/21/2023 9:10 AM HVAC INSTALLATION TECHNICIAN): Liver enzymes back to normal range Assessment & Plan (02/18/2023 10:06 AM CDT): Slightly elevated liver function test probably due to underlying uncontrolled hyperthyroidism Slowly improving Continue to monitor Assessment & Plan (12/21/2022 6:46 PM CDT): Noted elevated transaminases levels - suspect due to underlying uncontrolled hyperthyroidism Will continue to monitor closely Notalgia 11/02/2012 Encounters Date Type Department Care Team Description 03/08/2025 Telephone [facility] [address] [place] [address] [address] [place] [address] Yamilka Marley RN 03/07/2025 Orders Only [facility]ology [address] [facility] [address] [place] [address] Kimberly Rowe LPN H. pylori infection (Primary Dx) 02/26/2025 1:15 PM CDT Office Visit [facility] Diabetes [facility] Endocrinology [address] [place] [address] Dominique Melendez MD Graves' disease (Primary Dx) 02/19/2025 Orders Only [facility] Gastroenterology [address] [facility] 2nd Floor [address] [place] [address] Mag SoledadgieAFTAB 02/14/2025 Telephone [facility] [address] [place] [address] [address] [place] [address] Dominique Melendez MD 02/09/2025 Results Follow-Up [facility] [address] [facility] 12th [place] [address] [place] [address] Nargis Camp PA Surgical pathology 02/06/2025 9:00 AM CDT - 02/06/2025 10:00 AM CDT Surgery [facility]ive [address] [place] [address] Eleazar Nath MD COLON REMOVAL SNARE 02/06/2025 8:48 AM CDT Anesthesia Event [address] [place] [address] Damon Curran MD Hubbard, Gary Lee, CRNA 02/06/2025 7:31 AM CDT - 02/06/2025 10:08 AM CDT Hospital Encounter [address] [address] Eleazar Nath MD Nausea and vomiting, unspecified vomiting type; Right upper quadrant pain; Epigastric pain; Gastroesophageal reflux disease, unspecified whether esophagitis present; Colon cancer screening Discharge Disposition: Discharge to home or self care 02/01/2025 Telephone [facility] Special[facility] [address] [place] [phone] Rachel Alston, STEPHON GI PROCEDURE 3 DAY PRE CALL 01/30/2025 Telephone [facility] [address] [place] [phone] Rachel Alston RN GI PROCEDURE 7 DAY PRE CALL 01/02/2025 7:30 AM CDT - 01/02/2025 11:59 PM CDT Hospital Encounter [facility] [address] [place] [address] Epigastric pain; Nausea and vomiting, unspecified vomiting type Discharge Disposition: Discharge to home or self care 12/22/2024 Telephone [facility] [address], [place] [address] Dominique Melendez MD from Last 3 [...] on file Legal Sex Female 1:06 AM HVAC INSTALLATION TECHNICIAN Gender Identity Female 12/11/2022 3:40 PM CDT Sexual Orientation Not on file Obstetrics History Last Filed Vital Signs Vital Sign Reading Time Taken Comments Blood Pressure 122/70 02/26/2025 1:15 PM CDT Pulse 78 02/26/2025 1:15 PM CDT Temperature 36.5 C (97.7 F) 02/06/2025 9:38 AM CDT Respiratory Rate 15 02/26/2025 1:15 PM CDT Oxygen Saturation 100% 02/06/2025 9:58 AM CDT Inhaled Oxygen Concentration - - Weight 74.4 kg (164 lb) 02/06/2025 8:04 AM CDT Height 167.6 cm (5' 6) 02/26/2025 1:15 PM CDT Body Mass Index 26.47 02/06/2025 8:04 [...] 10/17/2020 Depression Screening 01/17/2025 01/18/2024 Influenza Vaccine (#1) 2025 , 06/01/2017 Colon Cancer Screening-Colonoscopy 02/06/2035 02/06/2025 Pneumococcal [...] FREE Routine 12/20/2024 T3, FREE Routine 12/20/2024 from Last 3 Months Results * Colonoscopy (02/06/2025 9:04 AM CDT) Anatomical Region Laterality Modality Other Narrative Procedure Note Eleazar Nath MD - 02/06/2025 9:04 AM CDT [facility] Patient Name: Marco Menon Procedure Date: 02/06/2025 9:04 AM Date of : 1965 Admit Type: Outpatient Age: 59 Gender: Female Attending MD: Eleazar Nath M.D. Room: [facility] ENDOSCOPY ROOM 3 Note Status: Addendum [...] The scope was passed under direct vision.The [id number] endoscope was introduced through the anus and advanced to the terminal ileum. The colonoscopy was performed without difficulty. The patient tolerated the procedure well. The qualityof the bowel preparation was evaluated using the BBPS (Bath Bowel Preparation Scale) with scores of:Right Colon [...] results. - Repeat colonoscopy in 7-10 years [facility]. - Contact Information: During normal business hours - Please call theNurse Coordinator: [phone] After hours, evening, nights, weekends and holidays- Please call the hospital cager operator at and ask for the GI fellow cardiology consultant. Attending Participation: I was present and participated [...] gastric) 02/06/2025 9:36 AM CDT Narrative PATHOLOGY [facility] - 02/08/2025 12:19 PM CDT EPIC results best viewed via link to PDF [facility] Jenny Estrada [facility] of Surgical Path[place] [address] Note to Patients: This report may contain [...] Gender: F : 1965 (Age: 59) Address: [address] [place], [place] [address] Hospital #: [id number] Taken:02/06/2025 Received:02/06/2025 Reported: 02/08/2025 Patient Type: [facility] Service: Gastro Location: Physician(s): Jose L Ortiz MD Rajneesh S. Jain, M.D. Nichole Michele Lewis, PA-C Diagnosis: A. Stomach, random biopsy: - Antral and oxyntic mucosa with focal active chronic Helicobacter pylori gastritis. - Complete-type intestinal metaplasia in antral mucosa; negative for dysplasia. - Helicobacter pylori immunostain is positive and highlights scattered organisms. B. Colon, transverse, polyp, polypectomy: - Fragments of tubular adenoma. [facility]/02/07/2025 15:38 By this signature, I attest [...] Surgical Pathology and Flow Cytometry Departments at [facility] as part of an ongoing software quality test engineer program and in compliance with federally mandated [...] Surgical Pathology and Flow Cytometry Departments of [facility]. It has not been cleared or approved by the U. S. Food and Drug Administration. IMAGES AND SCANNED DOCUMENTS, IF INCLUDED, ONLY VIEWABLE IN PDF VERSION OF REPORT Eleazar Nath MD LAB PATHOLOGY ORDERAB LES Final Result PATHOLOGY [facility] 3rd Floor [place], [place] [phone] * EGD (02/06/2025 8:55 AM CDT) Anatomical Region Laterality Modality Other Narrative Procedure Note Eleazar Nath MD - 02/06/2025 8:55 AM CDT [facility] Patient Name: Marco Menon Procedure Date: 02/06/2025 8:55 AM Date of : 1965 Admit Type: Outpatient Age: 59 Gender: Female Attending MD: Eleazar Nath M.D. Room: [facility] ENDOSCOPY ROOM 3 Note Status: Finalized Procedure: Upper GI endoscopy Indications: Epigastric abdominal pain, Heartburn Referring MD: Nargis Zamora PA-C, Les Garber [...] passed under direct vision. The [id number] endoscope was introduced through the mouth, and [...] business hours - Please call theNurse Coordinator: [phone] After hours, evening, nights, weekends and holidays- Please call the hospital cager operator at and ask for the GI fellow cardiology consultant. Attending Participation: I was present and participated [...] 2.71-6.16 Historical Provider LAB BLOOD ORDERABLES Haley byrd Result EXTERNAL LAB * T4, free (12/20/2024) SCRIBED T4, Free 1.30 0.78 - 2.19 mcg/dL EXTERNAL LAB Blood 12/20/2024 us Historical Provider LAB BLOOD ORDERABLES Haley carson Result EXTERNAL LAB from Last 3 Months Insurance [facility] H[facility]/PPO Address: [address] [address] [facility] [employer]/PPO Address: [address] [place] [address] Advance Directives For more information, please contact: [phone] * Full Code (Latest Code Status on File) Date Activated Date Inactivated Comments 02/06/2025 8:04 AM 02/06/2025 2:14 PM Care Teams Field Care Advocate Relationship Specialty Start Date End Date Les Garber MD [address] [place] [employer] [place], [place] [id number] PCP - General Internal Medicine 12/22/22
[2025-03-22 08:02] LABS: Hematocrit 43.8 % (37.0-47.0); Hemoglobin 14.6 g/dL (12.0-15.0); Mean Corpuscular HGB Conc 33.3 g/dl (32-36); Mean Corpuscular Hemoglobin 30.0 pg (26-34); Mean Corpuscular Volume 90.1 fl (80-100); Platelet Count Result 282 k/mm3 (150-375); Red Blood Count 4.86 M/mm3 (4.2-5.4); White Blood Count 5.6 K/mm3 (4.5-10.0)
[2025-03-22 08:06] LABS: Add Urine Microscopic? YES; Appearance Urine Turbid (Clear); Glucose Urine UA Negative (Negative); Leukocyte Esterase Ur 2+ LEU/UL (Negative); Nitrate Urine Positive (Negative); Non Pathogenic Casts 0-2; Specific Grav Ur 1.017 (1.001-1.035)
[2025-03-22 08:17] LABS: Alanine Aminotransferase 19 U/L (6-35); Albumin Level 4.4 g/dL (3.5-5.1); Alkaline Phosphatase 61 U/L (38-126); Anion Gap 7 mmol/L (4-12); Aspartate Amino Transferase 30 U/L (14-36); Bilirubin,Total 0.7 mg/dL (0.2-1.3); Blood Urea Nitrogen 12 mg/dL (7-17); Calcium 9.7 mg/dL (8.4-10.2); Carbon Dioxide 26 mmol/L (22-30); Chloride 107 mmol/L (98-107); Cholesterol 234 mg/dL (0-200); Estimated Glomerular Filt Rate > 60; Glucose 93 mg/dL (65-110); HDL Direct 58 mg/dL; Potassium 4.5 mmol/L (3.4-5.0); Sodium 140 mmol/L (137-145); Total Protein 7.4 g/dL (6.3-8.2); Triglycerides 113 mg/dL (<150)
== END 2025-03-22 07:14 | disposition home or self-care (01) ==
LOC: ANHLAB 07:14
PROVIDERS: PCP Internal Medicine; Visit Provider Internal Medicine
DX: Z00.00 Encounter for general adult medical examination without abnormal findings (principal)
CPT/HCPCS: 36415; 80053; 80061; 81001; 85027; 87086

== ENCOUNTER 2025-04-02 14:21 | Outpatient (CLI) | payer OTHER, SELFPAY ==
--- NOTE | ~2025-04-02 | MM_ITS ---
EXAMINATION: MM screening natalia BI w allie HISTORY: Screening mammogram, family history of breast cancer in her mother. TECHNIQUE: Craniocaudal and mediolateral oblique 3-D tomosynthesis images were obtained and synthetic 2-D images were generated. CAD analysis was submitted and interpreted. COMPARISON: 11/15/2024, 04/18/2024, 03/22/2024, 02/02/2023, 01/13/2022 BREAST PARENCHYMAL COMPOSITION:Dense: The breasts are heterogeneously dense, which may obscure small masses. FINDINGS: No suspicious mass, calcification, or architectural distortion are identified in either breast to suggest malignancy. There has been no suspicious interval change. IMPRESSION: No mammographic evidence of malignancy. Recommend routine screening mammography in one year. BI-RADS Category 1: Negative Reviewed, dictated and finalized at location .
== END 2025-04-02 14:22 | disposition home or self-care (01) ==
PROVIDERS: PCP Internal Medicine; Visit Provider Obstetrics & Gynecology Gynecology
DX: Z12.31 Encounter for screening mammogram for malignant neoplasm of breast (principal)
CPT/HCPCS: 77063; 77067

== ENCOUNTER 2025-04-09 08:28 | Outpatient (CLI) | payer OTHER, SELFPAY ==
--- NOTE | ~2025-04-09 | XR_ITS ---
XR ankle LT min 3V 04/09/2025 08:56 Indication: Lateral malleolar fracture Procedure: 4 views left ankle Comparison: Comparison to multiple prior studies sequentially, with oldest reviewed study dated 02/12/2025. 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 There is developing sclerosis along the fracture line. There are side plate and screws transfixing the first metatarsal proximally. Mild lateral soft tissue swelling. 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 Reviewed, dictated and finalized at location O. 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
--- OUTSIDE RECORDS SUMMARY | 2025-04-09 08:44 | XMS_ITS | Clinical Summary ---
Author Organization [facility] Physician Office Building [address] [place] [address] Care Team Providers Care Customer Security Clerk Name Role Phone eLs Garber MD Primary Care Provider + [phone] Allergies No known active allergies Medications aspirin 81 mg enteric coated tablet Take 1 tablet (81 mg total) by mouth daily Active MAGNESIUM ORAL Take by mouth 450MG QD Active omeprazole (PriLOSEC) 40 mg capsuleIndicati ons:Treatment of Non-Bleeding Gastric Disorder Take 1 capsule (40 mg total) by mouth 2 (two) times a day 60 capsule 3 12/13/2024 Active multivitamin tabletIndicatio ns:Vitamin Deficiency Prevention Take 1 tablet by mouth Active krill oil 500 mg capsule Take 1,000 mg by mouth Active methIMAzole (TAPAZOLE) 5 mg tabletIndicatio ns:Graves' disease Take 1/2 tablet by mouth 4 times a week. 24 tablet 02/26/2025 Active Active Problems Problem Noted Date Diagnosed [...] 02/18/2023 Assessment & Plan (07/25/2024 10:47 AM POST DOCTORAL RESEARCHER): chronic, progressively improving reviewed and discussed patient's [...] months Assessment & Plan (06/21/2023 9:06 AM POST DOCTORAL RESEARCHER): Chronic, uncontrolled, improving, recent TSH 8, iatrogenic [...] 12/21/2022 Assessment & Plan (06/21/2023 9:06 AM POST DOCTORAL RESEARCHER): No compressive symptoms Plan to repeat thyroid [...] 12/21/2022 Assessment & Plan (06/21/2023 9:10 AM POST DOCTORAL RESEARCHER): Liver enzymes back to normal range Assessment & Plan (02/18/2023 10:06 AM CDT): Slightly elevated liver function test probably due to underlying uncontrolled hyperthyroidism Slowly improving Continue to monitor Assessment & Plan (12/21/2022 6:46 PM CDT): Noted elevated transaminases levels - suspect due to underlying uncontrolled hyperthyroidism Will continue to monitor closely Notalgia 11/02/2012 Encounters Date Type Department Care Team Description 04/02/2025 7:25 AM CDT - 04/02/2025 11:59 PM CDT Hospital Encounter [facility] [address] [place] [address] H. pylori infection Discharge Disposition: Discharge to home or self care 03/08/2025 Telephone [facility] Digestive Disease [address] [address] Yamilka Marley RN 03/07/2025 Orders Only [facility] Medicine Allergy and Immunology [address] [facility] [address] [place] [address] Kimberly Rowe LPN H. pylori infection (Primary Dx) 02/26/2025 1:15 PM CDT Office Visit [facility] Medical Group Diabetes and Endocrinology [facility] [place] [address] Dominique Melendez MD Graves' disease (Primary Dx) 02/19/2025 Orders Only [facility] Medicine Gastroenterology [address] [facility] 2nd Floor [address] [place] [address] Kimberly Rowe LPN 02/14/2025 Telephone [facility] [address] [place] [address] [address] [place] [address] Dominique Melendez MD 02/09/2025 Results Follow-Up [facility] Medicine Gastroenterology [address] [place] [address] Advanced Medicine 12th [place] [address] [place] [address] Nargis Camp PA Surgical pathology 02/06/2025 9:00 AM CDT - 02/06/2025 10:00 AM CDT Surgery [facility] Digestive [place] [id number] [address] Eleazar Nath MD COLON REMOVAL SNARE 02/06/2025 8:48 AM CDT Anesthesia Event [address] [address] Damon Curran MD Hubbard, Gary Lee, JUAN CARLOS 02/06/2025 7:31 AM CDT - 02/06/2025 10:08 AM CDT Hospital Encounter [address] [address] Eleazar Nath MD Nausea and vomiting, unspecified vomiting type; Right upper quadrant pain; Epigastric pain; Gastroesophageal reflux disease, unspecified whether esophagitis present; Colon cancer screening Discharge Disposition: Discharge to home or self care 02/01/2025 Telephone [facility] Specialty Services [address] [place] [address] Rachel Alston RN GI PROCEDURE 3 DAY PRE CALL 01/30/2025 Telephone [facility] Specialty Services [address] [place] [phone] Rachel Alston RN GI PROCEDURE 7 DAY PRE CALL from Last 3 Months Surgical History Surgery [...] making you feel afraid or unsafe? Denies 04/02/2025 Comments No Sex and Gender Information Value Date Recorded Sex Assigned at Not on file Legal Sex Female 1:06 AM POST DOCTORAL RESEARCHER Gender Identity Female 12/11/2022 3:40 PM CDT [...] CDT Inhaled Oxygen Concentration - - Weight 71.7 kg (158 lb) 04/02/2025 8:03 AM CDT Height 167.6 cm (5' 6) 04/02/2025 8:03 AM CDT Body Mass Index 25.5 04/02/2025 8:03 AM CDT Plan of Treatment Health Maintenance Due Date Last Done Comments Breast Cancer Screening-Mammogram 1965 Cervical Cancer Screening 1965 Hepatitis C Screening 1965 Hepatitis B Screening 1983 Regular Well Visit/Exam 18-64 1983 DTaP/Tdap/Td Vaccine (2 - Td or Tdap) 04/12/2023 04/12/2013 Covid-19 Vaccine ( - 2023-2 5 season) 2024 08/05/2021, 11/09/2020, 10/17/2020 Depression Screening 01/17/2025 01/18/2024 Influenza Vaccine (#1) 2025 0, 06/01/2017 Colon Cancer Screening-Colonoscopy 02/06/2035 02/06/2025 Pneumococcal vaccine <65 Aged Out 12/04/2020 No longer eligible based on patient's age to complete this topic Zoster Vaccine Completed 07/16/2021, 12/04/2020 Procedures Procedure Name Priority Date/Time Associated Diagnosis Comments TSH Routine 03/22/2025 T4, FREE Routine 03/22/2025 T3, FREE Routine 03/22/2025 COLONOSCOPY 02/06/2025 9:04 AM CDT SURGICAL PATHOLOGY Routine 02/06/2025 8:59 AM CDT Nausea and vomiting, unspecified vomiting type Right upper quadrant pain Epigastric pain Gastroesophageal reflux disease, unspecified whether esophagitis present Colon cancer screening EGD 02/06/2025 8:55 AM CDT ESOPHAGOGASTRODUODENOSCOPY BIOPSY 02/06/2025 8:48 AM CDT Nausea and vomiting, unspecified vomiting type Right upper quadrant pain Epigastric pain Gastroesophageal reflux disease, unspecified whether esophagitis present Colon cancer screening COLON REMOVAL SNARE 02/06/2025 8:48 AM CDT Nausea and vomiting, unspecified vomiting type Right upper quadrant pain Epigastric pain Gastroesophageal reflux disease, unspecified whether esophagitis present Colon cancer screening from Last 3 Months Results * T3, Free (03/22/2025) 03/22/2025 Impressions EXTERNAL LAB - 03/22/2025 3.70 Ref Range 2.71-6.16 us Historical Provider LAB BLOOD ORDERABLES Haley byrd Result EXTERNAL LAB * TSH (03/22/2025) Scribed TSH 1.91 0.47 - 4.68 mcU/mL EXTERNAL LAB Blood 03/22/2025 Historical Provider LAB BLOOD ORDERABLES Haley l Result EXTERNAL LAB * T4, free (03/22/2025) SCRIBED T4, Free 0.99 0.78 - 2.19 mcg/dL EXTERNAL LAB Blood 03/22/2025 Historical Provider LAB BLOOD ORDERABLES Haley l Result Performing Organization Address [facility] Co de Phone Number EXTERNAL LAB * Colonoscopy (02/06/2025 9:04 AM CDT) Anatomical Region Laterality Modality Other Narrative Procedure Note Eleazar Nath MD - 02/06/2025 9:04 AM CDT GI ENDOSCOPY [facility] Patient Name: Marco Menon Procedure Date: 02/06/2025 9:04 AM Date of : 1965 Admit Type: Outpatient Age: 59 Gender: Female Attending MD: Eleazar Nath M.D. Room: [facility] ENDOSCOPY ROOM 3 Note Status: Addendum [...] The scope was passed under direct vision.The [id number] endoscope was introduced through the anus and advanced to the terminal ileum. The colonoscopy was performed without difficulty. The patient tolerated the procedure well. The qualityof the bowel preparation was evaluated using the BBPS ([place] Bowel Preparation Scale) with scores of:Right Colon [...] results. - [facility] colon[facility] in 7-[facility] - Contact Information: During normal business hours - Please call theNurse Coordinator: [phone] After hours, evening, nights, weekends and holidays- Please call the hospital seam press operator at and ask for the GI fellow conductor/engineer. Attending Participation: I was present and participated [...] gastric) 02/06/2025 9:36 AM CDT Narrative PATHOLOGY [facility] - 02/08/2025 12:19 PM CDT [facility] results best viewed via link to PDF [facility] [place] [address] Note to Patients: This report may contain [...] F : 1965 (Age: 59) Address: [address] [place] [phone] Hospital #: [id number] Taken:02/06/2025 Received:02/06/2025 Reported: 02/08/2025 Patient Type: [facility] Service: Gastro Location: Physician(s): Jose L [...] polyp, polypectomy: - Fragments of tubular adenoma. [facility]/02/07/2025 15:38 By this signature, I attest [...] in greatest dimension. Labeled B1. Jar 0. [facility]02/06/2025 14:01 PA(s): Jerri Beavers By this signature, I attest that the above diagnosis is based upon my personal examination of the slides(and/or other material). Addenda/Procedures The performance characteristics of some immunohistochemical stains, fluorescence in-situ hybridization tests and immunophenotyping by flow cytometry cited in this report (if any) were determined by the Surgical Pathology and Flow Cytometry Departments at [facility] as part of an ongoing manager quality improvement program and in compliance with federally mandated [...] Pathology and Flow Cytometry Departments of [facility]. It has not been cleared or approved by the U. S. Food and Drug Administration. IMAGES AND SCANNED DOCUMENTS, IF INCLUDED, ONLY VIEWABLE IN PDF VERSION OF REPORT Eleazar Nath MD LAB PATHOLOGY ORDERAB LES Final Result PATHOLOGY [facility] 3rd Floor [place], [place] [phone] * EGD (02/06/2025 8:55 AM CDT) Anatomical Region Laterality Modality Other Narrative Procedure Note Eleazar Nath MD - 02/06/2025 8:55 AM CDT GI ENDOSCOPY [facility] Patient Name: Marco Menon Procedure Date: 02/06/2025 8:55 AM Date of : 1965 Admit Type: Outpatient Age: 59 Gender: Female Attending MD: Eleazar Nath M.D. Room: [facility] ENDOSCOPY ROOM 3 Note Status: Finalized Procedure: Upper GI endoscopy Indications: Epigastric abdominal pain, Heartburn Referring MD: Nargis Zamora PA-C, Rajneesh S. Jain, M.D. Providers: Eleazar Nath M.D., Erasmo Bain [...] passed under direct vision. The [id number] endoscope was introduced through the mouth, and [...] business hours - Please call theNurse Coordinator: [phone] After hours, evening, nights, weekends and holidays- Please call the hospital seam press operator at and ask for the GI fellow conductor/engineer. Attending Participation: I was present and participated during the entire procedure, including non-gtz portions. Electronically signed by Eleazar Nath MD Eleazar Nath M.D. 02/06/2025 9:04:36 AM . Number of Addenda: 0 Note Initiated On: 02/06/2025 8:55 AM Eleazar Nath MD ENDOSCOPY PROCEDURES Final Result from Last 3 Months Insurance [facility] Advance Directives For more information, please contact: [phone] * Full Code (Latest Code Status on File) Date Activated Date Inactivated Comments 02/06/2025 8:04 AM 02/06/2025 2:14 PM Care Teams Customer Security Clerk Relationship Specialty Start Date End Date Les Garber MD [address] [place] [address] PCP - General Internal Medicine 12/22/22
--- OUTSIDE RECORDS SUMMARY | 2025-04-09 08:44 | XMS_ITS | Encounter Summary ---
Author Organization [facility] Address [address] [place] [address] Phone Care Team Providers Care Manager Steel Name Role Phone Les Garber MD Primary Care Provider [phone] Encounter Details Date Type Department Care Team (Late st Contact Info) Description 02/09/2025 Results Follow-Up [facility] Gastroenterology [address] [facility] Medicine 12th [place] [address] [place] [address] Nargis Camp PA [address] [place] [address] Surgical pathology Social History Tobacco Use Types [...] on file Legal Sex Female 1:06 AM HOT MILL OPERATOR Gender Identity Female 12/11/2022 3:40 PM CDT Sexual Orientation Not on file documented as of this encounter Plan of Treatment Not on file documented as of this encounter Visit Diagnoses Not on filedocumented in this encounter Care Teams Manager Steel Relationship Specialty Start Date End Date Les Garber MD [address] [place] [id number] PCP - General Internal Medicine 12/22/22 documented as of this encounter
--- OUTSIDE RECORDS SUMMARY | 2025-04-09 08:44 | XMS_ITS | Clinical Summary ---
Author Organization [facility] Address [address] [place] [address] Phone Care Team Providers Care Cow Puncher Name Role Phone Les Garber MD Primary [...] on file Legal Sex Female 2:26 PM METAL WINDOW SCREEN ASSEMBLER Gender Identity Not on file Sexual Orientation Not on file Last Filed Vital Signs Vital Sign Reading Time Taken Comments Blood Pressure 144/79 06/29/2019 3:15 PM METAL WINDOW SCREEN ASSEMBLER Pulse 82 06/29/2019 3:15 PM METAL WINDOW SCREEN ASSEMBLER Temperature 36.4 C (97.5 F) 06/29/2019 3:15 PM METAL WINDOW SCREEN ASSEMBLER Respiratory Rate - - Oxygen Saturation 98% 06/29/2019 3:15 PM METAL WINDOW SCREEN ASSEMBLER Inhaled Oxygen Concentration - - Weight 74.5 kg (164 lb 4.8 oz) 06/29/2019 3:15 P M METAL WINDOW SCREEN ASSEMBLER Height 170.2 cm (5' 7) 06/29/2019 3:15 PM METAL WINDOW SCREEN ASSEMBLER Body Mass Index 25.73 06/29/2019 3:15 PM METAL WINDOW SCREEN ASSEMBLER Plan of Treatment Health Maintenance Due [...] 2015 INFLUENZA VACCINE (#1) 2025 06/01/2017 Insurance [facility] BLUE ACCESS/TRUE BLUE PPO Care Teams Cow Puncher Relationship Specialty Start Date End Date Les Garber MD [address] [place] [address] PCP - General Internal Medicine 12/29/18
== END 2025-04-09 08:29 | disposition home or self-care (01) ==
PROVIDERS: PCP Internal Medicine; Visit Provider Internal Medicine
DX: S82.62XD Displaced fracture of lateral malleolus of left fibula, subsequent encounter for closed fracture with routine healing (principal)
CPT/HCPCS: 73610

== ENCOUNTER 2025-05-30 15:44 | Outpatient (CLI) | payer OTHER, SELFPAY ==
--- OUTSIDE RECORDS SUMMARY | 2003-03-20 08:30 | XMS_ITS | Continuity of Care Document ---
Author Organization [facility] Address [address] [facility] [address] [place] [address] Phone Care Team Providers Care Tax Record Clerk Name Role Phone Shanta Mansfield Unavailable Unavailable Advance Directives Directive Yes / No Effective Date File Name No Information Encounters Encounter Description Practice Location Reason(s) For Visit Diagnoses Date Provider Providers Copied on Encounter [facility], [id number] [place] [address] [address], [place], [place], [id number], [place] tel:[phone] [facility] No Information [address]. [address] , [address], [place], [address], [place]. tel:[phone] Family History Family Member Type Diagnosis Age At Onset No Information Payers Payer name Insurance type Covered libertarian ID Authoriza tion(s) No Information Social History Type Description Quantity Date Captured Comments Sex Female Smoking Status No Information Chief Complaint And Reason For Visit No Information Reason For Referral Reason For Referral No Information History Of Present Illness Encounter Date Complaint History Of Prese nt Illness No Information Functional Status Date Functional Assessmen t No Information Instructions Date Instruction Additional Infor mation No Information Assessments Type Assessment Date No Information Patient Care Teams Name Effective Dates (start - stop) Status Members No Information
--- NOTE | ~2025-05-30 | XR_ITS ---
EXAMINATION: XR ankle LT min 3V, 05/30/2025 15:52 CDT HISTORY: Pain left ankle and joints of left foot, F/U [facility] FX FEBRUARY 11 COMPARISON: No comparisons available. Findings: Remote corticated fracture lateral malleolus. No acute fracture identified. Moderate degenerative changes. Soft tissues unremarkable. Impression: No acute fracture or malalignment. Reviewed, dictated and finalized at location P. Impression: No acute fracture or malalignment.
--- OUTSIDE RECORDS SUMMARY | 2025-05-30 17:33 | XMS_ITS | Encounter Summary ---
Author Organization [facility] Address [address] [place] [address] Phone Care Team Providers Care Risk Compliance Manager Name Role Phone Les Garber MD Primary Care Provider [phone] Encounter Details Date Type Department Care Team (Late st Contact Info) Description 04/09/2025 [facility] [address] [facility] [place] Advanced Medicine 12th [place] [address] [place] [address] Nargis Camp PA [address] [place] [address] Urea breath test - Social History Tobacco Use Types Packs/Day Years [...] on file Legal Sex Female 1:06 AM CUSTOMER ASSOCIATE Gender Identity Female 12/11/2022 3:40 PM CDT Sexual Orientation Not on file documented as of this encounter Plan of Treatment Not on file documented as of this encounter Visit Diagnoses Not on filedocumented in this encounter Care Teams Risk Compliance Manager Relationship Specialty Start Date End Date Lse Garber MD [address] [place] [id number] PCP - General Internal Medicine 12/22/22 documented as of this encounter
--- OUTSIDE RECORDS SUMMARY | 2025-05-30 17:33 | XMS_ITS | Clinical Summary ---
Author Organization [facility] Physician Office Building [address] [place] [address] Care Team Providers Care Telecommunications Field Engineer Name Role Phone Les Garber MD Primary Care Provider + [phone] Allergies No known active allergies Medications aspirin 81 mg enteric coated tablet Take 1 tablet (81 mg total) by mouth daily Active MAGNESIUM ORAL Take by mouth 450MG QD Active multivitamin tabletIndicati ons:Vitamin Deficiency Prevention Take 1 tablet by mouth Active krill oil 500 mg capsule Take 1,000 mg by mouth Active methIMAzole (TAPAZOLE) 5 mg tabletIndicati ons:Graves' disease Take 1/2 tablet by mouth 4 times a week. 24 tablet 5 Active omeprazole (PriLOSEC) 40 mg capsuleIndicat ions:Treatment of Non-Bleeding Gastric Disorder Take 1 capsule (40 mg total) by mouth 2 (two) times a day 60 capsule 3 5 08/29/19 26 Active omeprazole (PriLOSEC) 40 mg capsuleIndicat ions:Treatment of Non-Bleeding Gastric Disorder Take 1 capsule (40 mg total) by mouth 2 (two) times a day 60 capsule 3 5 05/01/20 25 Discontinued Active Problems Problem Noted Date Diagnosed Date [...] 02/18/2023 Assessment & Plan (07/25/2024 10:47 AM APPLICATION DEVELOPMENT SPECIALIST): chronic, progressively improving reviewed and discussed patient's [...] months Assessment & Plan (06/21/2023 9:06 AM APPLICATION DEVELOPMENT SPECIALIST): Chronic, uncontrolled, improving, recent TSH 8, iatrogenic [...] 12/21/2022 Assessment & Plan (06/21/2023 9:06 AM APPLICATION DEVELOPMENT SPECIALIST): No compressive symptoms Plan to repeat thyroid [...] 12/21/2022 Assessment & Plan (06/21/2023 9:10 AM APPLICATION DEVELOPMENT SPECIALIST): Liver enzymes back to normal range Assessment & Plan (02/18/2023 10:06 AM CDT): Slightly elevated liver function test probably due to underlying uncontrolled hyperthyroidism Slowly improving Continue to monitor Assessment & Plan (12/21/2022 6:46 PM CDT): Noted elevated transaminases levels - suspect due to underlying uncontrolled hyperthyroidism Will continue to monitor closely Notalgia 11/02/2012 Encounters Date Type Department Care Team Description 04/30/2025 Telephone [facility] Medicine Gastroenterology [address] [facility] Medical Office Building [address] [place] [address] Apple Moss CNA 04/09/2025 Results Follow-Up [facility] Gastroenterology [address] [facility] Advanced Medicine 12th [place] [address] [place] [address] Nargis Camp PA Urea breath test - 04/02/2025 7:25 AM CDT - 04/02/2025 11:59 PM CDT Hospital Encounter [facility] Disease [facility] [address] [facility] [address] [place] [address] H. pylori infection Discharge Disposition: Discharge to home or self care 03/08/2025 Telephone [facility] Disease Center [address] [facility] [address] [place] [address] Yamilka Marley RN 03/07/2025 Orders Only [facility] Medicine Allergy and Immunology [address] [facility] [address] [place] [address] Kimberly Rowe LPN H. pylori infection (Primary Dx) from Last 3 Months Surgical [...] on file Legal Sex Female 1:06 AM APPLICATION DEVELOPMENT SPECIALIST Gender Identity Female 12/11/2022 3:40 PM CDT [...] (2 - Td or Tdap) 04/12/2023 04/12/2013 Depression Screening 01/17/2025 01/18/2024 Covid-19 Vaccine (4 - 2024-2 6 season) 2025 08/05/2021, 11/09/2020, 10/17/2020 Influenza Vaccine (#1) 2025 0, 06/01/2017 Colon Cancer Screening-Colonoscopy 02/06/2035 02/06/2025 Pneumococcal vaccine <65 Aged Out 12/04/2020 No longer eligible based on patient's age to complete this topic Zoster Vaccine Completed 07/16/2021, 12/04/2020 Procedures Procedure Name Priority Date/Time Associated Diagnosis Comments UREA BREATH TEST Routine 04/02/2025 2:40 PM CDT H. pylori infection TSH Routine 03/22/2025 T4, FREE Routine 03/22/2025 T3, FREE Routine 03/22/2025 COLONOSCOPY 02/06/2025 9:04 AM CDT from Last 3 Months or Most Recently Relevant to Health Maintenance Results * Urea breath test - (04/02/2025 2:40 PM CDT) Anatomical Region Laterality Modality Other Nargis ALVARADO GI LAB PROCEDURE ORDERA BLES Final Result * T3, Free (03/22/2025) 03/22/2025 Impressions EXTERNAL LAB - 03/22/2025 3.70 Ref Range 2.71-6.16 Historical Provider MD LAB BLOOD ORDERABLES Haley l Result EXTERNAL LAB * TSH (03/22/2025) Scribed TSH 1.91 0.47 - 4.68 mcU/mL EXTERNAL LAB Blood 03/22/2025 Historical Provider MD LAB BLOOD ORDERABLES Haley l Result EXTERNAL LAB * T4, free (03/22/2025) SCRIBED T4, Free 0.99 0.78 - 2.19 mcg/dL EXTERNAL LAB Blood 03/22/2025 Historical Provider MD LAB BLOOD ORDERABLES Haley l Result Performing Organization Address [facility] Co de Phone Number EXTERNAL LAB * Colonoscopy (02/06/2025 9:04 AM CDT) Anatomical Region Laterality Modality Other Narrative Procedure Note Eleazar Nath MD - 02/06/2025 9:04 AM CDT GI ENDOSCOPY [facility] Patient Name: Cristino Menon Procedure Date: 02/06/2025 9:04 AM Date of : 1965 Admit Type: Outpatient Age: 59 Gender: Female Attending MD: Eleazar Nath M.D. Room: [facility] ENDOSCOPY ROOM 3 Note Status: Addendum [...] The scope was passed under direct vision.The [id number] endoscope was introduced through the anus and advanced to the terminal ileum. The colonoscopy was performed without difficulty. The patient tolerated the procedure well. The qualityof the bowel preparation was evaluated using the BBPS ([place] Bowel Preparation Scale) with scores of:Right Colon [...] results. - Repeat colonoscopy in 7-10 years [facility]. - Contact Information: During normal business hours - Please call theNurse Coordinator: [phone] After hours, evening, nights, weekends and holidays- Please call the hospital gas collection system operator at and ask for the GI fellow exploration engineer. Attending Participation: I was present and participated during the entire procedure, including non-gtz portions. Electronically signed by Eleazar Nath MD Eleazar Nath M.D. 02/06/2025 9:40:19 AM . Number of Addenda: 1 Note Initiated On: 02/06/2025 9:04 AM Addendum Number: 1 Addendum Date: 02/06/2025 9:54:13 AM Prep was Suprep, not Golytely. Electronically signed by Eleazar Nath MD Eleazar Nath M.D. 02/06/2025 9:54:28 AM . us Eleazar Nath MD ENDOSCOPY PROCEDURES Edited Result - Final from Last 3 Months or Most Recently Relevant to Health Maintenance Insurance [facility] H[facility]/PPO Address: [address] [place] [address] [facility] H[facility]/PPO Address: [place] [address] Advance Directives For more information, please contact: [phone] * Full Code (Latest Code Status on File) Date Activated Date Inactivated Comments 02/06/2025 8:04 AM 02/06/2025 2:14 PM Care Teams Telecommunications Field Engineer Relationship Specialty Start Date End Date Les Garber MD [address] [place] [address] PCP - General Internal Medicine 12/22/22
--- OUTSIDE RECORDS SUMMARY | 2025-05-30 17:33 | XMS_ITS | Clinical Summary ---
Author Organization [facility] Address [address] [place] [address] Phone Care Team Providers Care Pastrycook Name Role Phone Les Garber MD Primary [...] on file Legal Sex Female 2:26 PM GRADUATE RN Gender Identity Not on file Sexual Orientation Not on file Last Filed Vital Signs Vital Sign Reading Time Taken Comments Blood Pressure 144/79 06/29/2019 3:15 PM GRADUATE RN Pulse 82 06/29/2019 3:15 PM GRADUATE RN Temperature 36.4 C (97.5 F) 06/29/2019 3:15 PM GRADUATE RN Respiratory Rate - - Oxygen Saturation 98% 06/29/2019 3:15 PM GRADUATE RN Inhaled Oxygen Concentration - - Weight 74.5 kg (164 lb 4.8 oz) 06/29/2019 3:15 P M GRADUATE RN Height 170.2 cm (5' 7) 06/29/2019 3:15 PM GRADUATE RN Body Mass Index 25.73 06/29/2019 3:15 PM GRADUATE RN Plan of Treatment Health Maintenance Due Date [...] 2015 INFLUENZA VACCINE (#1) 2025 06/01/2017 Insurance [facility] [employer] [employer]/TRUE BLUE PPO Care Teams Pastrycook Relationship Specialty Start Date End Date Les Garber MD [address] [place] [address] PCP - General Internal Medicine 12/29/18
== END 2025-05-30 15:45 | disposition home or self-care (01) ==
PROVIDERS: PCP Internal Medicine; Visit Provider Internal Medicine
DX: S82.65XD Nondisplaced fracture of lateral malleolus of left fibula, subsequent encounter for closed fracture with routine healing (principal); X58.XXXD Exposure to other specified factors, subsequent encounter
CPT/HCPCS: 73610